=== PATIENT | male | born 1950 | race Caucasian/White ===

== ENCOUNTER 2022-03-23 09:14 | Outpatient (CLI) | payer MEDICARE, SELFPAY | END 2022-03-23 09:15 | disposition home or self-care (01) | LOC: FRMREF 10:31 | PROVIDERS: PCP Family Medicine; Visit Provider Family Medicine | DX: L02.93 Carbuncle, unspecified (principal) | CPT/HCPCS: 87070; 87186 ==

== ENCOUNTER 2022-04-22 07:57 | Outpatient (CLI) | payer MEDICARE, SELFPAY ==
[2022-04-22 14:31] LABS: Chloride* 100 mmol/L (96-114); Potassium* 4.9 mmol/L (3.6-5.1); Sodium* 137 mmol/L (135-149)
[2022-04-22 14:34] LABS: Blood Urea Nitrogen* 22 mg/dL (7-30); Carbon Dioxide* 26 mmol/L (20-32); Cholesterol* 238 mg/dL (90-199); Creatinine* 1.5 mg/dL (0.5-1.5); Estimated Glomerular Filt Rate 50 ml/min; Glucose* 115 mg/dL (60-115); Triglycerides* 74 mg/dL (40-149)
[2022-04-22 14:35] LABS: HDL Cholesterol* 73 mg/dL (>=40); LDL Cholesterol Calculated 150 mg/dL (<100)
[2022-04-22 15:04] LABS: PSA Screen* 1.15 ng/mL (0.10-4.00)
== END 2022-04-22 07:58 | disposition home or self-care (01) ==
PROVIDERS: PCP Family Medicine; Visit Provider Family Medicine
DX: Z00.00 Encounter for general adult medical examination without abnormal findings (principal); G31.84 Mild cognitive impairment of uncertain or unknown etiology; N18.9 Chronic kidney disease, unspecified; Z12.5 Encounter for screening for malignant neoplasm of prostate
CPT/HCPCS: 80048; 80061; 84153; 84443

== ENCOUNTER 2022-06-01 18:34 | Emergency (ER) | payer MEDICARE, SELFPAY ==
[2022-06-01 18:54] VITALS: BP 144/90; PULSE 72; RESP 16; TEMP 36.7; O2SAT 97; BMI 25.0
--- NOTE | 2022-06-01 20:36 | ED.SKABFB ---
HPI - Skin/Abscess/Foreign Bdy General Chief complaint: Skin/Abscess/Foreign Body Stated complaint: Boil Time Seen by Provider: 06/01/22 20:15 History of Present Illness HPI narrative: Pt who was seen earlier today at urgent care presents with an abscess overlying the left mandible. Pt has had other abscesses lanced. Pt has had no fever or chills. Pt has done with with lancing in the past. The swelling has been present for the past 4 days. No airway compromise. No signs of systemic infection. Pain is minimal. Related Data Home Medications Medication Instructions Recorded Confirmed aspirin 81 mg chewable tablet 1 tab PO DAILY 03/23/22 05/30/22 cholecalciferol (vitamin D3) 50 2,000 unit PO DAILY 03/23/22 05/30/22 mcg (2,000 unit) capsule omega 6-bpv-xrg-fish oil 100 1 cap PO .qd 03/23/22 05/30/22 mg-160 mg-1,000 mg capsule (Fish Oil) Previous Rx's Medication Instructions Recorded donepezil 5 mg tablet 5 mg PO QDAY #90 tabs 04/22/22 Allergies Allergy/AdvReac Type Severity Reaction Status Date / Time No Known Allergies Allergy Verified 05/30/22 09:45 Review of Systems Status of ROS: Reports: 10 or more systems reviewed and unremarkable except as noted in History and below [facility] Medical History History of colonic polyps (08/22/09) History of depression (08/22/09) Mild cognitive impairment with memory loss Surgical History History of colonoscopy with polypectomy Status post hernia repair (08/22/09) Family History Sister Alzheimer's disease Father Alzheimer's disease Prostate cancer Brother Colon cancer Leukemia Other High blood pressure Stroke Social History Narrative: does not use illicit drugs former smoker has 2 children rarely consumes alcohol Smoking Status: Never smoker Little interest or pleasure in doing things: not at all Feeling down, depressed, or hopeless: not at all Exam Narrative: Exam Narrative: EXAM GENERAL: Patient appears comfortable and well. Swelling noted of the left mid mandible. Minimal edema noted. EYES: No scleral icterus. ENT: Tympanic membranes and oropharynx normal. THYROID: no thyroid nodules or thyromegaly. LYMPH: No supraclavicular or cervical lymphadenopathy. SKIN: Visible skin seen during exam normal or with benign process only. EXT: No dependent lower extremity pedal edema. HEART: Regular rate and rhythm with no murmurs, rubs, or gallops. LUNGS: Clear to auscultation bilaterally with no crackles or wheezes. ABD: Soft, non tender, non distended. PSYCH: Good eye contact, speech is not pressured. Const: Vital Signs, click to edit/add: Vital Signs - 24 hr 06/01/22 18:54 Temperature 98.0 F Pulse Rate [Right] 72 Respiratory Rate 16 Blood Pressure [Ri ght Upper Arm] 144/90 H Pulse Oximetry 97 Oxygen Delivery Me thod Room Air Course Course Hospital Course: After explaining the risk and benefit, I did create local anesthesia with 1% lidocaine with epinephrine. I then made approximately 1 and 1/2 cm incision draining small amount of pus. The wound was dressed and culture was collected. Vital Signs Vital signs: Initial Vital Signs Temperature 98.0 F 06/01/22 18:54 Temperature Source Temporal Artery Scan 06/01/22 18:54 Pulse Rate 72 06/01/22 18:54 Respiratory Rate 16 06/01/22 18:54 Blood Pressure 144/90 H 06/01/22 18:54 Blood Pressure Mean 108 06/01/22 18:54 Blood Pressure Position Sitting 06/01/22 18:54 Pulse Oximetry 97 06/01/22 18:54 Oxygen Delivery Method 06/01/22 18:54 Vital Signs Temperature 98.0 F 06/01/22 18:54 Pulse Rate 72 06/01/22 18:54 Respiratory Rate 16 06/01/22 18:54 Blood Pressure 144/90 H 06/01/22 18:54 Pulse Oximetry 97 06/01/22 18:54 Oxygen Delivery Method 06/01/22 18:54 Temperature 98.0 F 06/01/22 18:54 Pulse Rate 72 06/01/22 18:54 Respiratory Rate 16 06/01/22 18:54 Blood Pressure 144/90 H 06/01/22 18:54 Pulse Oximetry 97 10/10/22 18:54 Oxygen Delivery Method 06/01/22 18:54 MDM - Skin/Abscess/Foreign Bdy MDM Narrative Medical decision making narrative: Pt with frequent skin abscess presents with a fluctuant lesion on the mid mandible on the left. The lesion was drained and cultured and finally dressed. Pt's tdap was confirmed and he was placed on 7 days of keflex with outpt follow up. Discharge Plan Discharge Clinical Impression: Abscess Patient Disposition: Home, Self-Care Condition: Stable Instructions: Abscess (ED) Additional Instructions: Keflex as directed Daily dressing changes Follow up with your doctor Activity Level: No Restrictions Discharge Diet: Regular Prescriptions: No Action cholecalciferol (vitamin D3) 50 mcg (2,000 unit) capsule 2,000 unit PO DAILY aspirin 81 mg tablet,chewable 1 tab PO DAILY Fish Oil 100-160-1,000 mg capsule 1 cap PO .qd donepezil 5 mg tablet 5 mg PO QDAY Qty: 90 4RF Follow Up/Referrals: Farhat Randall MD [Primary Care Provider] - Stand Alone Forms: [facility] Info Instructions
[2022-06-01] MEDS: LIDOCAINE 2%-EPI 1:200,000 20 ML INFILTRATI (20:53)
--- NOTE | 2022-06-01 20:54 | ED.NURSE ---
wound culture swab obtained from open chin abscess and sent to lab.
== END 2022-06-01 21:10 | disposition home or self-care (01) ==
LOC: ED 20:47
PROVIDERS: Emergency Provider Internal Medicine; PCP Family Medicine
DX: L02.818 Cutaneous abscess of other sites (principal)
CPT/HCPCS: 10060; 87070; 87186; 99283

== ENCOUNTER 2022-06-10 07:28 | Day surgery (SDC) | payer MEDICARE, SELFPAY ==
[2022-06-10] MEDS: TETRACAINE 0.5% OPHTH 1 DROP EYE-LEFT ×2 (07:45→07:55)
[2022-06-10] MEDS: KETOROLAC OPHTH 0.5% 1 DROP EYE-LEFT ×3 (07:52→08:12)
[2022-06-10 08:00] VITALS: BMI 25.5
[2022-06-10 08:03] VITALS: BP 119/81; PULSE 55; RESP 16; TEMP 36.6; O2SAT 99
--- NOTE | 2022-06-10 08:04 | SUR.PREOP ---
The eye drops brought by the patient (Ketorolac and Prednisolone) are examined and I have determined they are labeled by the patient's pharmacy for this patient as prescribed by the surgeon. The bottles are intact, recently obtained and appear to be correct.
[2022-06-10] MEDS: SODIUM CHLORIDE 0.9 % (FLUSH) 10 ML SYRINGE IVF (08:16)
[2022-06-10] MEDS: TETRACAINE 0.5% OPHTH 2 DROP EYE-LEFT (08:45)
--- NOTE | 2022-06-10 08:50 | W.ANESCHARGE ---
Anesthesia Charges Start Date/Time Anesthesia Start Date: 06/10/22 Anesthesia Start Time: 08:42 Stop Date/Time Anesthesia Stop Date: 06/10/22 Anesthesia Stop Time: 09:27 Summary Emergency: No
[2022-06-10] MEDS: BALANCED SALT IRRIG SOLN 15 ML EYE-LEFT (08:51)
[2022-06-10 09:25] VITALS: BP 137/90; PULSE 52; RESP 16
--- NOTE | 2022-06-10 10:06 | W.ANESCHARGE ---
Anesthesia Charges Start Date/Time Anesthesia Start Date: 06/10/22 Anesthesia Start Time: 08:42 Stop Date/Time Anesthesia Stop Date: 06/10/22 Anesthesia Stop Time: 09:27 Summary Emergency: No
--- NOTE | 2022-06-10 10:20 | W.PM.OPTPROC ---
Procedure Note Date of procedure: 06/10/22 Will [facility] bill your pro fee for this procedure?: Yes Procedure Description: SURGEON: Sybil Prather MD PREOPERATIVE DIAGNOSIS: 1. Nuclear sclerotic cataract, left eye. 2. Miosis, left eye. POSTOPERATIVE DIAGNOSIS: 1. Nuclear sclerotic cataract, left eye. 2. Miosis, left eye. NAME OF OPERATION: Phacoemulsification of cataract with posterior chamber intraocular lens implantation in the left eye with pupilloplasty. ANESTHESIA: Topical. ESTIMATED BLOOD LOSS: Less than 2 cc. COMPLICATIONS: None. PATHOLOGY SPECIMEN: None. INDICATIONS: See consult note for details. The risks, benefits and alternatives of the procedure were explained to the patient, who elected to proceed and signed informed consent to do so. PROCEDURE: The patient was brought to the pre-holding area where the left eye was identified as the operative eye. I placed my initials above this eye. The patient received eye drops consisting of 0.5% tetracaine, 1% tropicamide, 10% phenylephrine, and 0.5% ketorolac. The patient was then brought to the operating room where the left eye was again identified as the operative eye. The eye was prepped with Betadine and draped in the usual sterile ophthalmic fashion. A #15 super-sharp blade was used to create a paracentesis site. 1% non-preserved intracameral lidocaine was injected into the anterior chamber. Endocoat was injected into the anterior chamber. A 2.4 mm keratome was used to create a three-plane self-sealing incision 1 mm anterior to the temporal limbus. A #15 super-sharp blade was used to create four additional paracentesis sites. Four Grieshaber iris hooks were placed in order to stretch the iris. A cystotome was used to create an anterior capsular leaflet. The Utrata forceps were used to extend this to form a continuous curvilinear capsulorrhexis. Hydrodissection was performed. The cataract was removed with phacoemulsification using the [id number] technique. The irrigation and aspiration tip was used to remove the remaining cortex. Healon was injected into the capsular bag. An MADELINE ZCB00 intraocular lens of 23.0 diopters was injected into the capsular bag. The four Grieshaber iris hooks were removed. The irrigation and aspiration tip was used to remove the remaining viscoelastic. Miostat was injected into the anterior chamber. Balanced salt solution on a cannula was used to hydrate the wound, and the wound was found to be watertight. The pupil was noted to be round. DISPOSITION: The patient was taken to the recovery room and discharged to home in stable condition. The patient was instructed to call me or go to the emergency department with any sudden change, including dramatic loss of vision, severe pain in the eye or eyebrow region, nausea, or vomiting. The patient will follow up in the clinic tomorrow morning. Surgeon: Sybil Prather MD
== END 2022-06-10 10:00 | disposition home or self-care (01) ==
PROVIDERS: PCP Family Medicine; Visit Provider Ophthalmology
PROC: (CPT 66982; principal; 2022-06-10 07:30)
DX: H25.12 Age-related nuclear cataract, left eye (principal); H57.03 Miosis
CPT/HCPCS: 66982; 00142; A9270; J2250; J3010; V2632

== ENCOUNTER 2022-06-20 09:46 | Emergency (ER) | payer MEDICARE, SELFPAY ==
[2022-06-20 10:47] VITALS: BP 135/76; PULSE 55; RESP 18; TEMP 36.9; O2SAT 98; BMI 24.9
--- NOTE | 2022-06-20 10:59 | ED_ITS ---
HPI - General Adult General Time Seen by Provider: 11:00 Date Seen: 06/20/22 Chief complaint: Laceration/Wound Stated complaint: Fall, head laceration Time Seen by Provider: 06/20/22 10:58 Source: patient and RN notes reviewed Mode of arrival: ambulatory Limitations: no limitations History of Present Illness HPI narrative: Patient is a 71-year-old male sent from urgent care for evaluation of a facial laceration sustained at about 4:00 a.m. this morning. Patient gets severe muscle cramps and had 1 in his calf last night. He gets plantar flexion and it is extremely painful, has to get out of bed. When he was getting out of bed he actually be fell. He was having extremely painful calf muscle cramp at the time. Takes a baby aspirin daily. Did take some ibuprofen earlier for some discomfort. They had went to [facility], had waited for toe open, was told that he needed evaluation here in the ER. He believes his tetanus is within about 8 years. He initially had some right sided posterior shoulder pain. It was not his neck. He points to the right posterior shoulder. It is not really bothering him now. He was maybe a little sweaty at the time. Denies any loss of consciousness, there was no cardiac symptomatology. His feels like he is fine now. He is able to breathe through his nose. No significant headache, no visual changes. Patient fell face 1st, hit his head. Does feel like his right front upper tooth is a little loose. Otherwise he does not have any malocclusion anywhere in his mouth, no pain. Does not feel that there is any cardio respiratory cause for his fall. complaint: Facial laceration Onset (ago): hour(s) Location: face Related Data Home Medications Medication Instructions Recorded Confirmed aspirin 81 mg chewable tablet 1 tab PO DAILY 03/23/22 06/10/22 cholecalciferol (vitamin D3) 50 2,000 unit PO DAILY 03/23/22 06/10/22 mcg (2,000 unit) capsule omega 3-adg-cjb-fish oil 100 1 cap PO .qd 03/23/22 06/10/22 mg-160 mg-1,000 mg capsule (Fish Oil) Previous Rx's Medication Instructions Recorded donepezil 5 mg tablet 5 mg PO QDAY #90 tabs 04/22/22 Allergies Allergy/AdvReac Type Severity Reaction Status Date / Time No Known Allergies Allergy Verified 06/10/22 07:55 Review of Systems Status of ROS: Reports: 6 or more systems reviewed and unremarkable except as noted in History and below [facility] Medical History History of colonic polyps (08/22/09) History of depression (08/22/09) Mild cognitive impairment with memory loss Surgical History History of colonoscopy with polypectomy Status post hernia repair (08/22/09) Family History Sister Alzheimer's disease Father Alzheimer's disease Prostate cancer Brother Colon cancer Leukemia Other High blood pressure Stroke Social History Narrative: does not use illicit drugs former smoker has 2 children rarely consumes alcohol Smoking Status: Former smoker What tobacco products do you use: cigarettes Smoking quit date/years: <= 15 years ago Do you use any of these nicotine containing products: None Second hand tobacco smoke exposure: No How often do you have a drink containing alcohol: monthly or less How often do you have six or more drinks on one occasion: Never AUDIT-C Alcohol total score: 1 Non-prescribed substance use: denies use Caffeine: No Little interest or pleasure in doing things: not at all Feeling down, depressed, or hopeless: not at all Exam Const: Vital Signs, click to edit/add: Vital Signs - 24 hr 06/20/22 10:47 Temperature 98.4 F Pulse Rate [Right Pulse Oximeter] 55 L Respiratory Rate 18 Blood Pressure [Ri ght Upper Arm] 135/76 Pulse Oximetry 98 Oxygen Delivery Me thod Room Air Patient has an irregular slightly stellate about 2.5 cm laceration above his right eyebrow. It is gaping. Not actively bleeding any longer. It is into the subcutaneous tissue but not deeper. Documenting provider has reviewed patient's vital signs: yes Common normals: no apparent distress, average body habitus, oriented x3, no limitations, healthy appearing, alert and well nourished HENMT: Common normals: external ears normal, TM's normal bilaterally, nasal mucous membranes and turbinates normal, moist oral mucous membranes, oropharynx normal and gingiva normal Nose: nasal mucous membranes and turbinates normal External ear: external ears normal Tympanic membrane: TM's normal bilaterally Mouth: oral and palatal mucosa normal, lip normal and tongue normal Throat: posterior oropharynx normal Other: Patient has the noted laceration above his right eyebrow. There seems to be a little ecchymosis over the bridge of his nose but he really has no pain, denies any difficulty breathing through nares. Dentition appear intact, no pain along the maxilla. Little superficial abrasion within the philtrum of the upper lip. Eye: Common normals: PERRL, EOMs intact bilaterally, conjunctivae normal and n o scleral icterus Conjunctiva: conjunctiva(e) normal Pupil: PERRL Neck & C-Spine: Common normals: full ROM (No central neck pain, no paraspinous tenderness.), no lymphadenopathy, supple, no JVD and thyroid normal Thyroid: thyroid normal Cardio: Common normals: no JVD Neuro: Common normals: oriented x3 Sensorium/orientation: alert Course Course Hospital Course: Patient needs this laceration repaired. Did discuss with he and his possibility of further imaging. We did discuss facial imaging, neck imaging, head imaging. At this time they do not feel any of this is necessary. They feel he really is at his baseline. They understand that if there is anything that changes, he has further symptoms once he leaves, would recommend re- evaluation. We will proceed with repairing his laceration. Patient had his tetanus in 2013, coming close to the end of the 10 year period, did opt to have his tetanus updated today which I think is appropriate. Tdap ordered. Vital Signs Vital signs: Initial Vital Signs Temperature 98.4 F 06/20/22 10:47 Temperature Source Temporal Artery Scan 06/20/22 10:47 Pulse Rate 55 L 06/20/22 10:47 Respiratory Rate 18 06/20/22 10:47 Blood Pressure 135/76 06/20/22 10:47 Blood Pressure Mean 95 06/20/22 10:47 Blood Pressure Position Sitting 06/20/22 10:47 Pulse Oximetry 98 06/20/22 10:47 Oxygen Delivery Method 06/20/22 10:47 Vital Signs Temperature 98.4 F 06/20/22 10:47 Pulse Rate 55 L 06/20/22 10:47 Respiratory Rate 18 06/20/22 10:47 Blood Pressure 135/76 06/20/22 10:47 Pulse Oximetry 98 06/20/22 10:47 Oxygen Delivery Method 06/20/22 10:47 Temperature 98.4 F 06/20/22 10:47 Pulse Rate 55 L 06/20/22 10:47 Respiratory Rate 18 06/20/22 10:47 Blood Pressure 135/76 06/20/22 10:47 Pulse Oximetry 98 06/20/22 10:47 Oxygen Delivery Method 06/20/22 10:47 Critical Care Time Critical Care Time Critical Care Time: No Discharge Plan Discharge Clinical Impression: Laceration of face, Fall Condition: Stable Instructions: Care For Your Stitches (ED), Laceration (ED) Additional Instructions: May shower as usual, schedule a clinic followup for this coming Wednesday to assess the wound for suture removal. Can use bandages if needed. Do recommend using Vaseline or bacitracin on this wound 4 times a day to help the wound from crusting. There is concern for infection, please seek re-evaluation. If you have any further issues from this fall, developed concerning symptoms outside of the laceration, please seek re-evaluation. Activity Level: Activity as Tolerated Prescriptions: No Action cholecalciferol (vitamin D3) 50 mcg (2,000 unit) capsule 2,000 unit PO DAILY aspirin 81 mg tablet,chewable 1 tab PO DAILY Fish Oil 100-160-1,000 mg capsule 1 cap PO .qd donepezil 5 mg tablet 5 mg PO QDAY Qty: 90 4RF Follow Up/Referrals: Maricarmen Valle DO [Primary Care Provider] - Stand Alone Forms: [facility] Info Instructions Procedures Laceration Laceration 1: Pre procedure diagnosis: Facial laceration Post procedure diagnosis: Same Site marking: not applicable Verification/time out: correct patient, correct site and correct procedure Name of person performing procedure: Miracle Garcia Site: face Side (If applicable): right Size (cm): 2.5 Description: stellate, irregular and clean Depth: simple, single layer Local Anesthetic: lidocaine 1% and with epi Amount of anesthesia used (mL): 5 Pre-repair: wound explored, irrigated extensively and deep structures intact Skin layer closed with: other (Ethilon) Size (cm): 4-0 Number of sutures: 11 Technique: simple, interrupted Estimated blood loss (if any): none Conclusion: patient tolerated procedure
--- OUTSIDE RECORDS SUMMARY | 2022-06-20 11:39 | XMS_ITS | Encounter Summary ---
:1950 Author Organization [facility] Address [address] [place] [address] Care Team Providers Name Role Phone Sarabjit Tenorio MD Primary Care Provider [phone] Sarabjit Tenorio MD Unavailable Encounter Details Date Type Department Care Team Description 02/26/2020 Travel Social History Tobacco Use Types Packs/Day Years Used Date Smoking Tobacco: Former Cigarettes 1 50 08/1966 - 08/30/2017 Smokeless Tobacco: Never Comments: hand rolled Alcohol Use Standard Drinks/Week Comments Yes 0 (1 standard drink = 0.6 oz pure alcoho l) a few drinks per month Sex Assigned at Date Recorded Not on file COVID-19 Exposure Response Date Recorded In the last month, have you been in contact with No / Unsure 02/26/2020 7:03 PM CDT someone who was confirmed or suspected to have Coronavirus / COVID-19? documented as of this encounter Plan of Treatment Not on filedocumented as of this encounter Visit Diagnoses Not on filedocumented in this encounter Care Teams Bi Data Architect Relationship Specialty Start Date End Date Saarbjit Tenorio MD PCP - General Family Practice 04/18/14 Sarabjit Tenorio MD Assigned PCP 03/22/14 05/17/21 [id number] [place] [address] documented as of this encounter
--- OUTSIDE RECORDS SUMMARY | 2022-06-20 11:39 | XMS_ITS | Clinical Summary ---
:1950 Author Organization [facility] Address [address] [place] [address] Care Team Providers Name Role Phone Sarabjit Tenorio MD Primary Care Provider [phone] Allergies No known active allergies Medications No known medications Active Problems Problem Noted Date Vasomotor rhinitis 02/26/2020 CRF (chronic renal failure), stage 2 (mild) 07/19/2017 CARDIOVASCULAR SCREENING; LDL GOAL LESS THAN 130 04/18 Resolved Problems Problem Noted Date Resolved Date Tobacco use disorder 04/18/2014 04/13/2018 Immunizations Name Administration Dates Next Due FLU 6-35 months 07/24/2009 Influenza (High Dose) 3 valent 06/07/2018 vaccine Influenza (IIV3) PF 06/07/2013, 05/12/2012, 05/28/2011, 05/29/2010, 07/09/2008 Influenza Vaccine IM > 6 months 06/18/2015 Valent IIV4 (Alfuria,Fluzone) Influenza Vaccine, 6+MO IM 05/30/2017 (QUADRIVALENT W/PRESERVATIVES) Pneumococcal 23 valent 05/16/2018 TDAP Vaccine (Adacel) 04/18/2014 Family History Medical History Relation Comments Leukemia Brother Alzheimer Disease Father Prostate Cancer Father metastatic Cerebrovascular Disease Mother Dementia Mother Hypertension Mother Alzheimer Disease Sister Relation Status Comments Brother Alive Father Maternal Grandfather Maternal Grandmother Mother Paternal Grandfather Paternal Grandmother Sister Social History Tobacco Use Types Packs/Day Years Used Date Smoking Tobacco: Former Cigarettes 1 50 09/0 08/1966 - 08/30/2017 Smokeless Tobacco: Never Tobacco Cessation: Ready to Quit: Yes Comments: hand rolled Alcohol Use Standard Drinks/Week Comments Yes 0 (1 standard drink = 0.6 oz pure alcoho l) a few drinks per month Sex Assigned at Date Recorded Not on file Last Filed Vital Signs Vital Sign Reading Time Taken Comments Blood Pressure 142/95 02/26/2020 7:13 PM CDT Pulse 86 02/26/2020 7:13 PM CDT Temperature 36.4 ??C (97.6 ??F) 02/26/2020 7:13 PM CDT Respiratory Rate 16 02/26/2020 7:13 PM CDT Oxygen Saturation 98% 02/26/2020 7:13 PM CDT Inhaled Oxygen Concentration - - Weight 88.5 kg (195 lb) 02/26/2020 7:13 PM CDT per pt. Height 198.8 cm (6' 6.25) 04/13/2018 7:30 AM CDT Body Mass Index 22.39 04/13/2018 7:30 AM CDT Plan of Treatment Health Maintenance Due Date Last Done Comments ADVANCE CARE PLANNING 1950 ANNUAL REVIEW OF HM ORDERS 1950 CT COLONOGRAPHY 1950 FIT-DNA (Cologuard) 1950 FIT 1950 FLEX SIG 1950 HEPATITIS B IMMUNIZATION (1 1950 of 3 - 3-dose series) MICROALBUMIN 1950 COVID-19 Vaccine (#1) 02/17/1951 URINALYSIS 1951 LUNG CANCER SCREENING 2002 ZOSTER IMMUNIZATION (1 of 2002 2) AORTIC ANEURYSM SCREENING 2017 (SYSTEM ASSIGNED) LIPID 07/14/2018 07/14/2017, 04/18/2014 MEDICARE ANNUAL WELLNESS 07/14/2018 07/14/2017, 04/18/2014 VISIT BMP 04/13/2019 04/13/2018, 07/14/2017, 04/18/2014 FALL RISK ASSESSMENT 05/16/2019 05/16/2018 Pneumococcal Vaccine: 65+ 05/16/2019 05/16/2018 Years (2 - PCV) PHQ-2 (once per calendar 08/23/2021 07/28/2017, 07/14/2017, year) 01/06/2016 INFLUENZA VACCINE (#1) 2022 06/07/2018, 05/30/2017, 05/30/2017, Additional history exists DTAP/TDAP/TD IMMUNIZATION 04/18/2024 04/18/2014 (2 - Td or Tdap) COLONOSCOPY 06/08/2024 06/08/2014, 06/08/2014 COLORECTAL CANCER SCREENING 06/08/2024 HEPATITIS C SCREENING Completed 07/14/2017 IPV IMMUNIZATION Aged Out No longer eligi ble based on patient 's age to complete this topic MENINGITIS IMMUNIZATION Aged Out No longe r eligible based on patient 's age to complete this topic Insurance Payer Benefit Plan / Subscriber ID Effective Dates Phone Addre ss Type Group BCBS BCBS MEDICARE [id number] 2020-Sonny [phone] [address] [address] Medicare [place]VANTAGE [place] 0 [place] [address] Care Teams Mold Shifter Relationship Specialty Start Date End Date Sarabjit Tenorio MD PCP - General Family Practice 04/18/14
--- OUTSIDE RECORDS SUMMARY | 2022-06-20 11:40 | XMS_ITS | Encounter Summary ---
:1950 Author Organization [place] Address [facility] [place] [address] Care Team Providers Name Role Phone Sarabjit Peterson MD Primary Care Provider [phone] Sarabjit Peterson MD Unavailable Sarabjit Peterson MD Unavailable Reason for Visit Auth/Cert - Closed Specialty Diagnoses / Procedures Referred By Contact Refer red To Contact Gastroenterology Diagnoses SCREENING Endoscopy Procedures COLONOSCOPY [address] [place] [address] Phone: Fax: Referral ID Status Reason Start Date Expiration Date Visits Requ ested Visits Authorized [id number] Closed 1 1 Encounter Details Date Type Department Care Team Description 06/08/2014 Surgery [facility] Endoscopy Jose King MD COLONOSCOPY [facility] [address] [facility] [address] [place] [address] [place] [address] (Wo rk) Surgery Details Date/Time Status Location OR Service Patient Class Case Case Trauma Class Type Case? 06/08/14 Posted GI [facility] Gastroenterology Outpatient 7:30 AM Panel 1 Procedure LRB Anes Op Region Wound Class Commen ts COLONOSCOPY N/A Conscious Sedation Rectum II-Clean Contami nated COLONOSCOPY Surgeon Surgeon Role Service Panel Jose Lopez MD Primary Gastroenterology [address] PETERSON documented in this encounter Social History Tobacco Use Types Packs/Day Years Used Date Smoking Tobacco: Every Day Cigarettes 0.8 45 Smokeless Tobacco: Never Comments: hand rolled Alcohol Use Standard Drinks/Week Comments Yes 0 (1 standard drink = 0.6 oz pure alcoho l) Sex Assigned at Date Recorded Not on file documented as of this encounter Last Filed Vital Signs Vital Sign Reading Time Taken Comments Blood Pressure 116/76 06/08/2014 8:00 AM CDT Pulse - - Temperature - - Respiratory Rate 16 06/08/2014 8:00 AM CDT Oxygen Saturation 97% 06/08/2014 8:00 AM CDT Inhaled Oxygen Concentration - - Weight 83.9 kg (185 lb) 06/08/2014 7:28 AM CDT Height 190.5 cm (6' 3) 06/08/2014 7:28 AM CDT Body Mass Index 23.12 06/08/2014 7:28 AM CDT documented in this encounter Medications at Time of Discharge Medication Sig Dispensed Refills Start Date End Date Aspirin 81 MG TBDP 0 2017 documented as of this encounter H&P Notes Jose Lopez MD - 06/08/2014 7:22 AM CDT Pre-Endoscopy History and Physical En Zamora Date of : 1950 Age: [age] year old Date of Procedure: 06/08/2014 Primary care provider: Sarabjit Peterson Type of Endoscopy: Colonoscopy with possible biopsy, possible polypectomy Reason for Procedure: screen Type of Anesthesia Anticipated: Conscious Sedation HPI: En is a 63 year old male who will be undergoing the above procedure. A history and physical has been performed. The patient's medications and allergies have been reviewed. The risks and benefits of the procedure and the sedation options and risks were discussed with thepatient. All questions were answered and informed consent was obtained. He denies a personal or family history of anesthesia complications or bleeding disorders. Patient Active Problem List Diagnosis ??? Tobacco use disorder ??? CARDIOVASCULAR SCREENING; LDL GOAL LESS THAN 130 Past Medical History Diagnosis Date ??? H/O colonoscopy with polypectomy 2000 pre-cancer polyps Past Surgical History Procedure Laterality Date ??? Hernia repair, inguinal rt/lt History Substance Use Topics ??? Smoking status: Current Every Day Smoker -- 0.75 packs/day for 45 years Types: Cigarettes ??? Smokeless tobacco: Never Used Comment: hand rolled ??? Alcohol Use: Yes Family History Problem Relation Age of Onset ??? Hypertension Mother ??? Dementia Mother ??? Stroke Mother ??? Prostatic CA Father ??? Alzheimers Father ??? Alzheimers Sister Prior to Admission medications Medication Sig Start Date End Date Taking? Authorizing Provider Aspirin 81 MG TBDP Reported, Patient No Known Allergies REVIEW OF SYSTEMS: 5 point ROS negative except as noted above in HPI, including Gen., Resp., CV, GI & system review. PHYSICAL EXAM: There were no vitals taken for this visit. Estimated body mass index is 23.12 kg/(m^2) as calculatedfrom the following: Height as of 04/18/14: 1.905 m (6' 3). Weight as of 04/18/14: 83.915 kg (185 lb). GENERAL APPEARANCE: alert, and oriented MENTAL STATUS: alert AIRWAY EXAM: Mallampatti Class II (visualization of the soft palate, fauces, and uvula) RESP: lungs clear to auscultation - no rales, rhonchi or wheezes CV: regular rates and rhythm DIAGNOSTICS: Not indicated IMPRESSION ASA Class 2 - Mild systemic disease PLAN: Plan for Colonoscopy with possible biopsy, possible polypectomy. We discussed the risks, benefits and alternatives and the patient wished to proceed. The above has been forwarded to the consulting provider. Signed Electronically by: Jose Lopez MD June 08, 2014 documented in this encounter Plan of Treatment Not on filedocumented as of this encounter Procedures Procedure Name Priority Date/Time Associated Diagnosis Comme nts COLONOSCOPY Routine 06/08/2014 7:22 AM Results f or this CDT procedure are i n the results section . COLONOSCOPY 06/08/2014 7:19 AM screen CDT Special Needs DR. PETERSON documented in this encounter Results COLONOSCOPY (06/08/2014 7:22 AM CDT) [facility] Method Time Signature COLONOSCOPY [facility] RAD IOLOGY RESULTS Patient Name: En Zamora ?Procedure Date: 06/08/2014 7:22 AM ? Accou nt Number: [id number] Date of : 1950 ? Admit Type: Outp atient Age: 63 ? Gender: Male Attending MD: Jose Lopez MD ?Instrument Name: [id number] [id number] Procedure: ?Colonoscopy Indications: ?[place] colon cancer surveillance: Personal ?history of colonic po lyps Providers: ?Jose Lopez MD Referring MD: ? Sarabjit Peterson MD Medicines: ?Midazolam 2 mg IV, Fentanyl 100 micrograms IV Complications: ?No immediate complications. Procedure: ?Pre-Anesthesia Assessment: ?- Prior to the procedure, a History and Physical ?was performed, and patient medications and ?allergies were reviewed. The patient is competent. ?The risks and benefits of the procedure and the ?sedation options and risks were discussed with the ?patient. All questions were answered and informed ?consent was obtained. Patient identification and ?proposed procedure were verified by the physician ?in the procedure room. Mental Status Examination: ?alert and oriented. Airway Examination: normal ?oropharyngeal airway and neck mobility. Respiratory ?Examination: clear to auscultation. CV Examination: ?normal. Prophylactic Antibiotics: The patient does ?not require prophylactic antibiotics. Prior ?Anticoagulants: The patient has taken aspirin, last ?dose was 5 days prior to procedure. ASA Grade ?Assessment: II - A patient with mild systemic ?disease. After reviewing the risks and benefits, ?the patient was deemed in satisfactory condition to ?undergo the procedure. The anesthesia plan was to ?use moderate sedation / analgesia (conscious ?sedation). Immediately prior to administration of ?medications, the patient was re-assessed for ?adequacy to receive sedatives. The heart rate, ?respiratory rate, oxygen saturations, blood ?pressure, adequacy of pulmonary ventilation, and ?response to care were monitored throughout the ?procedure. The physical status of the patient was ?re-assessed after the procedure. ?After obtaining informed consent, the colonoscope ?was passed under direct vision. Throughout the ?procedure, the patient's blood pressure, pulse, and ?oxygen saturations were monitored continuously. The ?[id number] was introduced through the anus ?and advanced to the cecum, identified by ?appendiceal orifice and ileocecal valve. The ?colonoscopy was performed without difficulty. The ?patient tolerated the procedure well. The quality ?of the bowel preparat ion was good. ? Findings: ? The perianal and digital rectal examinations were nor mal. ? The entire examined colon appeared normal on direct and retroflexion ? views. ? Impression: ? - The entire examined colon is normal on direct and ?retroflexion views. Recommendation: ? - Repeat colonoscopy in 5 years for surveillance. ? Procedure Code(s): ? --- Professional --- ? G0105, Colorectal cancer screening; colonoscopy on individual at high ? risk Diagnosis Code(s): ? --- Professional --- ? V12.72, Personal history of colonic polyps CPT copyright 2013 [employer]. All rights reserved. The codes documented in this report are prelimin beverly and upon type proof reproducer review may be revised to meet current compliance requirements. Electronically signed by Jose Lopez MD Jose Lopez MD 06/08/2014 7:48 AM I was physically present for the entire viewing portion of t he exam. Number of Addenda: 0 Note Initiated On: 06/08/2014 7:22 AM MRN: ?[id number] Procedure Date: ? 06/08/2014 7:22:44 AM Scope Withdrawal Time: 0 hours 6 minutes 14 seconds Total Procedure Duration: 0 hours 19 minutes 0 seconds Scope In: 7:23:18 AM Scope Out: 7:42:18 AM Specimen (Source) Anatomical Collection Method Collection Time Re ceived Time Location / / Volume Laterality 06/08/2014 7:22 AM CDT Sarabjit Peterson MD PROCEDURES Performing Organization Address City/State/ZIP Code Phon e Number RADIOLOGY RESULTS documented in this encounter Visit Diagnoses Not on filedocumented in this encounter Administered Medications Inactive Administered Medications - up to 3 most recent administrations Medication Order MAR Action Action Date Dose Rate Site fentaNYL (SUBLIMAZE) injection Given 06/08/2014 7:27 AM CDT 100 mcg PRN, moderate to severe pain, Starting on Wed06/08/14 at 0727, Intra-procedure midazolam (VERSED) injection Given 06/08/2014 7:27 AM CDT 2 mg PRN, anxiety, Starting on Wed06/08/14 at 0727, Intra-procedure sodium chloride (PF) 0.9% PF flush 3 mL Given 06/08/2014 7:27 AM CDT 3 mLs 3 mL, Intravenous, EVERY 1 HOUR PRN, line flush, post meds or blood draw, Starting on Wed06/08/14 at 0713, for peripheral IV line flush post IV meds, Pre-procedure documented in this encounter Active and Recently Administered Medications Times are shown in CDT. PRN Medication Order 06/06/2014 06/07/2014 06/08/2014 fentaNYL (SUBLIMAZE) injection (CANCELED) 07 (Given - Provider: Jose Lopez MD) PRN, Starting Wed06/08/14 at 0727, moderate to severe pain, Int ra-procedure midazolam (VERSED) injection (CANCELED) 0727 (Given - Provider: Jose Lopez MD) PRN, Starting Wed06/08/14 at 0727, anxiety, Intra-procedure sodium chloride (PF) 0.9% PF flush 3 mL (CANCELED) 0727 (Given - Provider: Jose Lopez MD) 3 mL, Intravenous, EVERY 1 HOUR PRN, tia e flush, post meds or blood draw, Starting Wed06/08/14 at 0713, for peripheral IV line flush post IV meds, Pre-procedure documented in this encounter Care Teams Mail Clerks Supervisor Relationship Specialty Start Date End Date Sarabjit Peterson MD PCP - General Family Practice 04/18/14 Sarabjit Peterson MD PCP - Assigned PCP 03/22/14 10/25/18 [id number] [place] [id number] Sarabjit Peterson MD Assigned PCP 03/22/14 05/17/21 [address] [place] [address] documented as of this encounter
--- OUTSIDE RECORDS SUMMARY | 2022-06-20 11:40 | XMS_ITS | Encounter Summary ---
:1950 Author Organization [place] Address [facility] [place] [address] Care Team Providers Name Role Phone Sarabjit Tenorio MD Primary Care Provider [phone] Sarabjit Tenorio MD Unavailable Sarabjit Tenorio MD Unavailable Reason for Visit Diagnostic Imaging XR - Closed Specialty Diagnoses / Procedures Referred By Contact Refer red To Contact Diagnoses Flatulence, eructation, and gas pain Sarabjit Tenorio MD Procedures XR Abdomen 1 [address] [address] [place] [address] Referral ID Status Reason Start Date Expiration Date Visits Requ ested Visits Authorized [id number] Closed 05/16/2018 05/16/2019 1 1 Encounter Details Date Type Department Care Team Description 05/16/2018 Radiant Appointment [facility] Sarabjit Tenorio atulence, Clinic Luis M Berry MD eructation, and gas [address] [address] [facility], [address] [place] [address] [phone] Social History Tobacco Use Types Packs/Day Years Used Date Smoking Tobacco: Former Cigarettes 1 50 09/0 08/1966 - 08/30/2017 Smokeless Tobacco: Never Comments: hand rolled Alcohol Use Standard Drinks/Week Comments Yes 0 (1 standard drink = 0.6 oz pure alcoho l) a few drinks per month Sex Assigned at Date Recorded Not on file documented as of this encounter Plan of Treatment Not on filedocumented as of this encounter Procedures Procedure Name Priority Date/Time Associated Diagnosis Comme nts XR ABDOMEN 1 VIEW Routine 05/16/2018 10:15 AM Flatulence, Res ults for this CDT eructation, and gas procedur e are in pain the results section. documented in this encounter Results XR Abdomen 1 View (05/16/2018 10:15 AM CDT) Anatomical Region Laterality Modality Abdomen/Pelvis Computed Radiography Specimen (Source) Anatomical Location Collection Method / Collectio n Time Received Time / Laterality Volume Impressions 05/16/2018 3:16 PM CDT IMPRESSION: Nonobstructive gas pattern. ANTONIO SAL MD Narrative 05/16/2018 3:16 PM CDT XR ABDOMEN 1 VW 05/16/2018 10:15 AM HISTORY: Gas pain. COMPARISON: None. FINDINGS: No evidence of free intraperit carter air. The bowel gas pattern is nonobstructive. Evidence of p revious hernia repair. Procedure Note Antonio Sal MD - 05/16/2018For matting of this note might be different from the original. XR ABDOMEN 1 VW 05/16/2018 10:15 AM HISTORY: Gas pain. COMPARISON: None. FINDINGS: No evidence of free intraperit carter air. The bowel gas pattern is nonobstructive. Evidence of p revious hernia repair. IMPRESSION: Nonobstructive gas pattern. ANTONIO SAL MD Sarabjit Tenorio MD IMG DIAGNOSTIC IMAGING ORDER CLIF documented in this encounter Visit Diagnoses Diagnosis Flatulence, eructation, and gas pain documented in this encounter Care Teams Back Stayer Relationship Specialty Start Date End Date Sarabjit Tenorio MD PCP - General Family Practice 04/18/14 Sarabjit Tenorio MD PCP - Assigned PCP 03/22/14 10/25/18 [address] [place] [address] Sarabjit Tenorio MD Assigned PCP 03/22/14 05/17/21 [address] [place] [address] documented as of this encounter
--- OUTSIDE RECORDS SUMMARY | 2022-06-20 11:40 | XMS_ITS | Encounter Summary ---
:1950 Author Organization [place] Address [address] [place] [address] Care Team Providers Name Role Phone Sarabjit Tenorio MD Primary Care Provider [phone] Sarabjit Tenorio MD Unavailable Sarabjit Tenorio MD Unavailable Reason for Visit Reason Comments Physical fasting Encounter Details Date Type Department Care Team Description 07/14/2017 Office Visit [facility] Sarabjit Tenorio eneral medical examination at a health care facility (Primary Dx); Clinic Luis M Berry MD Need for hepatitis C screening test; [place] [address] A[address] CARDOZA Tobacco use disorder; Road, [address] [place] [address] [place], [place] [phone] (Wo rk) [address] [phone] Social History Tobacco Use Types Packs/Day Years Used Date Smoking Tobacco: Every Day Cigarettes 1 45 Smokeless Tobacco: Never Comments: hand rolled Alcohol Use Standard Drinks/Week Comments Yes 0 (1 standard drink = 0.6 oz pure alcoho l) a few drinks per month Sex Assigned at Date Recorded Not on file documented as of this encounter Last Filed Vital Signs Vital Sign Reading Time Taken Comments Blood Pressure 106/74 07/14/2017 7:41 AM NET FISHER Pulse 78 07/14/2017 7:41 AM NET FISHER Temperature 36.7 ??C (98.1 ??F) 07/14/2017 7:41 AM NET FISHER Respiratory Rate 16 07/14/2017 7:41 AM NET FISHER Oxygen Saturation - - Inhaled Oxygen Concentration - - Weight 78.3 kg (172 lb 11.2 oz) 07/14/2017 7:41 AM NET FISHER Height 190.5 cm (6' 3) 07/14/2017 7:41 AM NET FISHER Body Mass Index 21.59 07/14/2017 7:41 AM NET FISHER documented in this encounter Patient Instructions Patient InstructionsJune Bloom CMA - 07/14/2017 7:20 AM NET FISHER Preventive Health Recommendations Male Ages 50 - 64 Yearly exam: ?? See your health care provider every year in order to o Review health changes. o Discuss preventive care. o Review your medicines if your doctor has prescribed any. ??? Have a cholesterol test every 5 years, or more frequently if you are at risk for high cholesterol/heart disease. ??? Have a diabetes test (fasting glucose) every three years. If you are at risk for diabetes, you should have this test more often. ??? Have a colonoscopy at age 50, or have a yearly FIT test (stool test). These exams will check forcolon cancer. ??? Talk with your health care provider about whether or not a prostate cancer screening test (PSA) is right for you. ??? You should be tested each year for STDs (sexually transmitted diseases), if you???re at risk. Shots: Get a flu shot each year. Get a tetanus shot every 10 years. Nutrition: ??? Eat at least 5 servings of fruits and vegetables daily. ??? Eat whole-grain bread, whole-wheat pasta and brown rice instead of white grains and rice. ??? Talk to your provider about Calcium and Vitamin D. Lifestyle ??? Exercise for at least 150 minutes a week (30 minutes a day, 5 days a week). This will help you control your weight and prevent disease. ??? Limit alcohol to one drink per day. ??? No smoking. ??? Wear sunscreen to prevent skin cancer. ??? See your dentist every six months for an exam and cleaning. ??? See your eye doctor every 1 to 2 years. FISHER documented in this encounter Progress Notes Sarabjit Tenorio MD - 07/14/2017 7:20 AM CST SUBJECTIVE: CC: En Zamora is an 66 year old male who presents for preventative health visit. Healthy Habits: Answers for HPI/ROS submitted by the patient on 07/14/2017 Annual Exam: Getting at least 3 servings of Calcium per day:: Yes Bi-annual eye exam:: Yes Dental care twice a year:: NO Sleep apnea or symptoms of sleep apnea:: Daytime drowsiness Diet:: Regular (no restrictions) Frequency of exercise:: None Taking medications regularly:: Yes Medication side effects:: Not applicable Additional concerns today:: YES PHQ-2 Score: 0 Notes that he had a slighlty abnormal kidney test at last check up three years ago, never followed up. Still smoking - would like to quit smoking. Has tried previously, but many years ago. Was able to quit for 7 weeks using hypnosis. Interested in using Chantix. is still smoking, but would also like to quit. Due have cataract surgery next month. Up several times a night to urinate. Also has some hesitancy, weak stream. Father had metastatic prostate cancer, thinks he was around 75 when diagnosed. Today's PHQ-2 Score: PHQ-2 (??1999 Pfizer) 07/14/2017 01/06/2016 Q1: Little interest or pleasure in doing things 0 0 Q2: Feeling down, depressed or hopeless 0 0 PHQ-2 Score 0 0 Q1: Little interest or pleasure in doing things Not at all - Q2: Feeling down, depressed or hopeless Not at all - PHQ-2 Score 0 - Abuse: Current or Past(Physical, Sexual or Emotional)- No Do you feel safe in your environment - Yes Social History Substance Use Topics ??? Smoking status: Current Every Day Smoker Packs/day: 1.00 Years: 45.00 Types: Cigarettes ??? Smokeless tobacco: Never Used Comment: hand rolled ??? Alcohol use 0.0 oz/week 0 Standard drinks or equivalent per week Comment: a few drinks per month The patient does not drink >3 drinks per day nor >7 drinks per week. Last PSA: No results found for: PSA Reviewed orders with patient. Reviewed health maintenance and updated orders accordingly - Yes Reviewed and updated as needed this visit by clinical staff Tobacco Allergies Meds Med Hx Surg Hx Fam Hx Soc Hx Reviewed and updated as needed this visit by Provider ROS: C: NEGATIVE for fever, chills, change in weight I: NEGATIVE for worrisome rashes, moles or lesions E: NEGATIVE for vision changes or irritation ENT: NEGATIVE for ear, mouth and throat problems R: NEGATIVE for significant cough or SOB CV: NEGATIVE for chest pain, palpitations or peripheral edema GI: NEGATIVE for nausea, abdominal pain, heartburn, or change in bowel habits male: negative for dysuria, hematuria, decreased urinary stream, erectile dysfunction, urethral discharge M: NEGATIVE for significant arthralgias or myalgia N: NEGATIVE for weakness, dizziness or paresthesias P: NEGATIVE for changes in mood or affect OBJECTIVE: BP 106/74 Pulse 78 Temp 98.1 ??F (36.7 ??C) (Oral) Resp 16 Ht 6' 3 (1.905 m) Wt 172 lb 11.2 oz (78.3 kg) BMI 21.59 kg/m2 EXAM: GENERAL: healthy, alert and no distress EYES: Eyes grossly normal to inspection, PERRL and conjunctivae and sclerae normal HENT: ear canals and TM's normal, nose and mouth without ulcers or lesions NECK: no adenopathy, no asymmetry, masses, or scars and thyroid normal to palpation RESP: lungs clear to auscultation - no rales, rhonchi or wheezes CV: regular rate and rhythm, normal S1 S2, no S3 or S4, no murmur, click or rub, no peripheral edemaand peripheral pulses strong ABDOMEN: soft, nontender, no hepatosplenomegaly, no masses and bowel sounds normal MS: no gross musculoskeletal defects noted, no edema SKIN: no suspicious lesions or rashes NEURO: Normal strength and tone, mentation intact and speech normal PSYCH: mentation appears normal, affect normal/bright ASSESSMENT/PLAN: 1. Need for hepatitis C screening test - Hepatitis C Screen Reflex to HCV RNA Quant and Genotype 2. Routine general medical examination at a health care facility Is fasting - Lipid panel reflex to direct LDL Fasting - Basic metabolic panel - PSA, screen 3. Tobacco use disorder - varenicline (CHANTIX STARTING MONTH ) 0.5 MG X 11 & 1 MG X 42 tablet; Take 0.5 mg tab dailyfor 3 days, then 0.5 mg tab twice daily for 4 days, then 1 mg twice daily. Dispense: 53 tablet; Refill: 0 - varenicline (CHANTIX) 1 MG tablet; Take 1 tablet (1 mg) by mouth 2 times daily Dispense: 56 tablet; Refill: 2 4. Nocturia Will check PSA, trial of flomax - tamsulosin (FLOMAX) 0.4 MG capsule; Take 1 capsule (0.4 mg) by mouth daily Dispense: 30 capsule; Refill: 1 COUNSELING: Reviewed preventive health counseling, as reflected in patient instructions Regular exercise Vision screening reports that he has been smoking Cigarettes. He has a 45.00 pack-year smoking history. He has neverused smokeless tobacco. Tobacco Cessation Action Plan: Pharmacotherapies : Chantix Estimated body mass index is 21.59 kg/(m^2) as calculated from the following: Height as of this encounter: 6' 3 (1.905 m). Weight as of this encounter: 172 lb 11.2 oz (78.3 kg). Counseling Resources: ATP IV Guidelines Pooled Cohorts Equation Calculator FRAX Risk Assessment ICSI Preventive Guidelines Dietary Guidelines for Americans, 2009 [employer]'s MyPlate ASA Prophylaxis Lung CA Screening Sarabjit Tenorio MD [facility] FISHER documented in this encounter Nursing Notes June Bloom CMA - 07/14/2017 7:20 AM CST Chief Complaint Patient presents with ??? Physical fasting Initial BP 106/74 Pulse 78 Temp 98.1 ??F (36.7 ??C) (Oral) Resp 16 Ht 6' 3 (1.905 m) Wt 172 lb 11.2 oz (78.3 kg) BMI 21.59 kg/m2 Estimated body mass index is 21.59 kg/(m^2) as calculated from the following: Height as of this encounter: 6' 3 (1.905 m). Weight as of this encounter: 172 lb 11.2 oz (78.3 kg). Medication Reconciliation: complete June Bloom CMA (AAMA) FISHER documented in this encounter Plan of Treatment Not on filedocumented as of this encounter Procedures Procedure Name Priority Date/Time Associated Diagnosis Comme nts HEPATITIS C SCREEN Routine 07/14/2017 8:11 AM Need for hepatit is C Results for this REFLEX TO HCV RNA NET FISHER screening test procedur e are in QUANT AND GENOTYPE the resul ts section. PROSTATE SPECIFIC Routine 07/14/2017 8:11 AM Routine general R esults for this ANTIGEN SCREEN NET FISHER medical examination proced ure are in at a health care the results facility section. LIPID REFLEX TO Routine 07/14/2017 8:11 AM Routine general Res ults for this DIRECT LDL PANEL NET FISHER medical examination proc edure are in at a health care the results facility section. BASIC METABOLIC Routine 07/14/2017 8:11 AM Routine general Res ults for this PANEL NET FISHER medical examination procedur e are in at a [facility] care the results facility section. documented in this encounter Results PSA, screen (07/14/2017 8:11 AM NET FISHER) athologist Signature PSA 0.99 0 - 4 ug/L 07/15/2017 [place] 5:24 PM [facility] Comment: Assay Method: Chemiluminescence using Siemens [place] analyzer Specimen Anatomical Collection Method Collection Time Receive d Time (Source) Location / / Volume Laterality Blood specimen 07/14/2017 8:11 AM 017 8:16 (specimen) NET FISHER AM NET FISHER Sarabjit Tenorio MD LAB - BLOOD ORDERABLES Performing Organization Address City/State/ZIP Code Phon e Number M [facility] [address] [address] [phone] [facility] [address] [address], [place] [phone] (ABNORMAL) Basic metabolic panel (07/14/2017 8:11 AM NET FISHER) athologist Signature Sodium 137 133 - 144 07/15/2017 [place] mmol/L 5:15 PM NET FISHER [facility] Potassium 4.2 3.4 - 5.3 07/15/2017 [place] mmol/L 5:15 PM NET FISHER [facility] Chloride 105 94 - 109 07/15/2017 [place] mmol/L 5:15 PM NET FISHER [facility] Carbon Dioxide 18 (L) 20 - 32 07/15/2017 [place] mmol/L 5:15 PM [facility] Anion Gap 14 3 - 14 07/15/2017 [place] mmol/L 5:15 PM [facility] Glucose 92 70 - 99 07/15/2017 [place] mg/dL 5:15 PM [facility] Comment: Fasting specimen Urea Nitrogen 15 7 - 30 mg/dL 07/15/2017 5:15 PM [facility] Creatinine 1.29 (H) 0.66 - 1.25 07/15/2017 5:15 PM [facility] mg/dL [facility][1] GFR Estimate 56 (L) >60 mL/min/1.7m2 07/15/2017 5:15 PM F [facility] Comment: Non GFR Calc GFR Estimate If 68 >60 mL/min/1.7m2 07/15/2017 5:15 P M [facility] Black [facility][1] Comment: GFR Calc Calcium 9.7 8.5 - 10.1 mg/dL 07/15/2017 5:15 PM [facility] Specimen Anatomical Collection Method Collection Time Receive d Time (Source) Location / / Volume Laterality Blood specimen 07/14/2017 8:11 AM 017 8:16 (specimen) NET FISHER AM [facility] Sarabjit Tenorio MD LAB - BLOOD ORDERABLES Performing Organization Address City/State/ZIP Code Phon e Number [facility] [address] [place] [address] (ABNORMAL) Lipid panel reflex to direct LDL Fasting (07/14/2017 8:11 AM NET FISHER) athologist Signature Cholesterol 213 (H) <200 mg/dL 07/15/2017 [facility] 5:15 PM [facility][1] Comment: Desirable: <200 mg/dl Triglycerides 92 <150 mg/dL 07/15/2017 5:15 PM [facility] Comment: Fasting specimen HDL Cholesterol 79 >39 mg/dL 07/15/2017 5:15 PM [facility] LDL Cholesterol 116 (H) <100 mg/dL 07/15/2017 5:15 PM [facility] Calculated [facility][1] Comment: Above desirable: ??100-129 mg/dl Borderline High: ??130-159 mg/dL High: ? 160-189 mg/dL Very high: ? >189 mg/dl Non HDL Cholesterol 134 (H) <130 mg/dL 07/15/2017 5:15 PM [facility] Comment: Above Desirable: ??130-159 mg/dl Borderline high: ??160-189 mg/dl High: ? 190-219 mg/dl Very high: ? >219 mg/dl Specimen Anatomical Collection Method Collection Time Receive d Time (Source) Location / / Volume Laterality Blood specimen 07/14/2017 8:11 AM 017 8:16 (specimen) NET FISHER AM NET FISHER Sarabjit Tenorio MD LAB - BLOOD ORDERABLES Performing Organization Address City/[facility]/ZIP Code Phon e Number [facility] [address] [place] [address] Hepatitis C Screen Reflex to HCV RNA Quant and Genotype (07/14/2017 8:11 AM NET FISHER) [facility] gist Method Time Signature Hepatitis C Nonreactive NR^Nonrea 07/16/2017 [facility] ctive 10:35 AM [facility] Comment: Assay performance characteristics have n ot been established for newborns, infants, and children Specimen Anatomical Collection Method Collection Time Receive d Time (Source) Location / / Volume Laterality Blood specimen 07/14/2017 8:11 AM 017 8:16 (specimen) NET FISHER AM NET FISHER Sarabjit Tenorio MD LAB - BLOOD ORDERABLES Performing Organization Address City/State/ZIP Code Phon e Number [facility] [address] [place] [address] [facility] documented in this encounter Visit Diagnoses Diagnosis Routine general medical examination at a health care facility - Primary Need for hepatitis C screening test Special screening examination for other specified viral diseases Tobacco use disorder Nocturia documented in this encounter Care Teams Airline Reservationist Relationship Specialty Start Date End Date Sarabjit Tenorio MD PCP - General Family Practice 04/18/14 Sarabjit Tenorio MD PCP - Assigned PCP 7/31/14 3/5/19 [id number] [place] [address] Sarabjit Tenorio MD Assigned PCP 03/22/14 05/17/21 [address] [place] [id number] documented as of this encounter
--- OUTSIDE RECORDS SUMMARY | 2022-06-20 11:40 | XMS_ITS | Encounter Summary ---
:1950 Author Organization [place] Address [address] [place] [address]. [place] [address] Care Team Providers Name Role Phone Sarabjit Tenorio MD Primary Care Provider [phone] Sarabjit Tenorio MD Unavailable Sarabjit Tenorio MD Unavailable Encounter Details Date Type Department Care Team Description 01/06/2016 Radiant Appointment [facility] Sarabjit Tenorio [facility] [place] [address] [facility] [place], [address] [place] [address] [address] [place] [address] [place], [place] [phone] (Wo rk) [address] [phone] Social History Tobacco Use Types Packs/Day Years [...] Priority Date/Time Associated Diagnosis Comme nts XR CHEST 2 VIEWS Routine 01/06/2016 12:17 PM Cough Resu lts for this CDT procedure are i n the results section. documented in this encounter Results XR Chest 2 Views (01/06/2016 12:17 PM CDT) Anatomical Region Laterality Modality Chest Computed Radiography Specimen (Source) Anatomical Location Collection Method / Collectio n Time Received Time / Laterality Volume Impressions 01/06/2016 1:49 PM CDT IMPRESSION: No acute disease. SAVANNAH ANGEL MD Narrative 01/06/2016 1:49 PM CDT CHEST TWO VIEWS January 06, 2016 12:17 PM HISTORY: Cough. COMPARISON: None. FINDINGS: There are no acute infiltrates . The cardiac silhouette is not enlarged. Pulmonary vasculature is u nremarkable. Procedure Note Savannah Angel MD - 01/06/2016Fo rmatting of this note might be different from the original. CHEST TWO VIEWS January 06, 2016 12:17 PM HISTORY: Cough. COMPARISON: None. FINDINGS: There are no acute infiltrates . The cardiac silhouette is not enlarged. Pulmonary vasculature is u nremarkable. IMPRESSION: No acute disease. SAVANNAH ANGEL MD Sarabjit Tenorio MD IMG DIAGNOSTIC IMAGING ORDER CLIF documented in this encounter Visit Diagnoses Not on filedocumented in this encounter Care Teams Field Insurance Sales Manager Relationship Specialty Start Date End Date Sarabjit Tenorio MD PCP - General Family Practice 04/18/14 Sarabjit Tenorio MD PCP - Assigned PCP 03/22/14 10/25/18 [address] [place] [address] Sarabjit Tenorio MD Assigned PCP 03/22/14 05/17/21 [address] [place] [phone] documented as of this encounter
--- OUTSIDE RECORDS SUMMARY | 2022-06-20 11:40 | XMS_ITS | Encounter Summary ---
:1950 Author Organization [place] Address [address] [place] [address] Care Team Providers Name Role Phone Sarabjit Tenorio MD Primary Care Provider [phone] Sarabjit Tenorio MD Unavailable Sarabjit Tenorio MD Unavailable Reason for Visit Reason Onset Date Comments Onboarding 10/03/2014 [facility] - [facility] ER ONBOARDED Encounter Details Date Type Department Care Team Description 10/03/2014 Telephone [facility] Sarabjit Tenorio Onboardin g ([facility] Luis M Berry MD CHOICES - MEMBER [address] [place] [address], [address] [place] [address] ONBOARDED) [address] [place] [address] [place], [place] [phone] (Wo rk) [address] [phone] Social History Tobacco Use Types Packs/Day Years [...] on filedocumented in this encounter Care Teams Railroad Police Officer Relationship Specialty Start Date End Date Sarabjit Tenorio MD PCP - General Family Practice 04/18/14 Sarabjit Tenorio MD PCP - Assigned PCP 03/22/14 10/25/18 [address] [address] Sarabjit Tenorio MD Assigned PCP 03/22/14 05/17/21 [address] [address] documented as of this encounter
--- OUTSIDE RECORDS SUMMARY | 2022-06-20 11:40 | XMS_ITS | Encounter Summary ---
:1950 Author Organization [place] Address [address] [place] [address] Care Team Providers Name Role Phone Unavailable Primary Care Provider Unavailable Encounter Details Date Type Department Care Team Description 09/12/2003 Operative Report Karolyn Londono MD (Commercial Agent) [place] [address] (Wo rk) Social History Tobacco Use Types Packs/Day Years Used Date Smoking Tobacco: Never Assessed Sex Assigned at Date Recorded Not on file documented as of this encounter Miscellaneous Notes Op Note - Karolyn Londono - 09/12/2003 12:00 AM REMELT WORKER : 54 1st ASS'T: 2nd ASS'T: PRE-OPERATIVE DIAGNOSIS: POST-OPERATIVE DIAGNOSIS: OPERATION: Colonoscopy. TIME: 10:25 a.m. INDICATION FOR PROCEDURE: History of polyps in this 53-year- old gentleman. ALLERGIES: Haldol. PHYSICAL EXAMINATION: Heart and lungs unremarkable. MEDICATIONS: Sublimaze 0.1 mg, Versed 2 mg, Atropine 0.6 mg, all IV. FINDINGS: After obtaining informed consent including discussion of medication reaction risk, risk of bleeding, etc., and administering premedication and performing normal digital examination, the Olympus video pediatric dialable flexibility colonoscope was introduced in the usual fashion. The prep was good. The scope was advanced to the cecum. The appendiceal area was seen. The valve area was seen. I appreciate no lesions in the colon today. Retroflexion view in the rectum is negative. The patient tolerated the procedure well. The scope was withdrawn. ASSESSMENT: 1) Normal exam. 2) History of polyps. RECOMMENDATION: Re-do four years. Dr. Bustamante as usual. [id number] KAROLYN LONDONO MD [place]: Document: [id number] [place], [place] Name: EN ZAMORA LCN: ENDO DSC: 09/12/2003 [place], [place] Name: MR#: : Procedure Date: EN ZAMORA -14 1950 09/12/2003 Doctor: KAROLYN LONDONO MD OPERATIVE REPORT Page 1 of 2 LT WORKER documented in this encounter Plan of Treatment Not on filedocumented as of this encounter Visit Diagnoses Not on filedocumented in this encounter
--- OUTSIDE RECORDS SUMMARY | 2022-06-20 11:40 | XMS_ITS | Encounter Summary ---
:1950 Author Organization [place] Address [address] [facility] [place] [address] Care Team Providers Name Role Phone Sarabjit Tenorio MD Primary Care Provider [phone] Sarabjit Tenorio MD Unavailable Reason for Referral Consultation (Routine) - Closed Specialty Diagnoses / Procedures Referred By Contact Refer red To Contact Consuelo Rodriguez CNP ENT SPECIALTY [facility] [address] [place], [place] [address] [address] [place] [address] Phone: Fax: Referral ID Status Reason Start Date Expiration Date Visits Requ ested Visits Authorized [id number] Closed 02/26/2020 02/25/2021 1 1 Reason for Visit Reason Comments Urgent Care no fevers, no SOB, no coughi ng no wheezing, no covid exposure, former ssmoker quit 2 years ago Sinus Problem Sinus issued for a long time , has been using nasal spray, not able to breathe unless though mouth Encounter Details Date Type Department Care Team Description 02/26/2020 Office Visit [facility] Consueol Rodriguez, Rhinitis medicamentosa Urgent Care Estee reyna CNP (Primary Dx) [address] [place] [address] [phone] Social History Tobacco Use Types Packs/Day Years [...] / COVID-19? documented as of this encounter Last Filed [...] 02/26/2020 7:13 PM CDT per pt. Height - - Body Mass Index 22.39 04/13/2018 7:30 AM CDT documented in this encounter Patient Instructions Patient InstructionsConsuelo Rodriguez CNP - 02/26/2020 8:15 PM CDT Stop nasal spray. Start Fluticasone spray instead. If not clearing in a couple of weeks see ENT. documented in this encounter Progress Notes Consuelo Rodriguez CNP - 02/26/2020 8:15 PM CDT SUBJECTIVE: En Zamora is a 69 year old male presenting with a chief complaint of nasal congestion for 5 weeks. He has been using a decongestant nasal spray for several weeks and when he tries to stop it the symptoms worsen. Onset of symptoms was 5 week(s) ago. Course of illness is worsening. Severity moderate Previous Treatment: nasal spray, Loratidine and Phenylephrine Past Medical History: Diagnosis Date ??? Depressive disorder ??? H/O colonoscopy with polypectomy 2000 pre-cancer polyps Current Outpatient Medications Medication Sig Dispense Refill ??? fluticasone (FLONASE) 50 MCG/ACT nasal spray [place] 1 spray into both nostrils daily for 14 days 15.8 mL 0 Social History Tobacco Use ??? Smoking status: Former Smoker Packs/day: 1.00 Years: 50.00 Pack years: 50.00 Types: Cigarettes Start date: 04/23/1967 Last attempt to quit: 08/30/2017 Years since quittin.4 ??? Smokeless tobacco: Never Used ??? Tobacco comment: hand rolled Substance Use Topics ??? Alcohol use: Yes Alcohol/week: 0.0 standard drinks Comment: a few drinks per month Family History Problem Relation Age of Onset ??? Hypertension Mother ??? Dementia Mother ??? Cerebrovascular Disease Mother ??? Prostate Cancer Father metastatic ??? Alzheimer Disease Father ??? Alzheimer Disease Sister ??? Leukemia Brother ROS: 10 point ROS neg other than the symptoms noted above in the HPI. OBJECTIVE BP (!) 142/95 (BP Location: Left arm, Patient Position: Sitting) Pulse 86 Temp 97.6 ??F (36.4 ??C) (Oral) Resp 16 Wt 88.5 kg (195 lb) SpO2 98% BMI 22.39 kg/m?? GENERAL APPEARANCE: healthy appearing, alert EYES: PERRL, EOMI, sclera non-icteric HENT: ear canals and TM's normal and nasal mucosa very inflamed and swollen, clear rhinorrhea present NECK: no adenopathy or asymmetry, thyroid normal to palpation RESP: short expiratory wheeze heard in the left upper lobe CV: regular rates and rhythm, no murmurs, rubs, or gallop SKIN: no suspicious lesions or rashes ASSESSMENT/PLAN: ICD-10-CM 1. Rhinitis medicamentosa J31.0 fluticasone (FLONASE) 50 MCG/ACT nasal spray T48.5X5A Follow Up: Patient Instructions Stop nasal spray. Start Fluticasone spray instead. If not clearing in a couple of weeks see ENT. Consuelo Rodriguez APRN, CNP [place] [facility] Provider documented in this encounter Plan of Treatment Scheduled Referrals Name Type Priority Associated Diagnoses Order S [facility] OTOLARYNGOLOGY REFERRAL Referral Routine Orde red: 02/26/2020 documented as of this encounter Visit Diagnoses Diagnosis Rhinitis medicamentosa - Primary Other diseases of nasal cavity and sinus es documented in this encounter Care Teams Water Treatment Plant Operator Relationship Specialty Start Date End Date Sarabjit Tenorio MD PCP - General Family Practice 04/18/14 Sarabjit Tenorio MD Assigned PCP 03/22/14 05/17/21 [address] [place] [address] documented as of this encounter
--- OUTSIDE RECORDS SUMMARY | 2022-06-20 11:40 | XMS_ITS | Encounter Summary ---
:1950 Author Organization [place] Address [address] [place] [address] Care Team Providers Name Role Phone Sarabjit Tenorio MD Primary Care Provider [phone] Sarabjit Tenorio MD Unavailable Sarabjit Tenorio MD Unavailable Reason for Referral Diagnostic Procedure Outpatient - Closed Specialty Diagnoses / Procedures Referred By Contact Refer red To Contact Diagnoses Colon cancer screening Sarabjit Tenorio M [facility] [address] [place] [address] [place] [address] Phone: Fax: Referral ID Status Reason Start Date Expiration Date Visits Requ ested Visits Authorized [id number] Closed 04/18/2014 10/15/2014 1 1 Reason for Visit Reason Comments Physical Blood Draw patient IS fasting Encounter Details Date Type Department Care Team Description 04/18/2014 Office Visit [facility] Sarabjit Tenorio g eneral medical examination at a health care facility (Primary Dx); Clinic Luis M Berry MD Colon cancer screening; [place] [address] Need for Tdap vaccination; Road, [address] [place] [address] Benign neoplasm of skin of trunk, except scrotum [place] [phone] (Wo rk) [address] [phone] Social History Tobacco Use Types Packs/Day Years Used Date Smoking Tobacco: Every Day Cigarettes 0.8 45 Smokeless Tobacco: Never Comments: hand rolled Alcohol Use Standard Drinks/Week Comments Yes 0 (1 standard drink = 0.6 oz pure alcoho l) Sex Assigned at Date Recorded Not on file documented as of this encounter Last Filed Vital Signs Vital Sign Reading Time Taken Comments Blood Pressure 96/70 04/18/2014 7:05 AM CDT Pulse 68 04/18/2014 7:05 AM CDT Temperature 36.8 ??C (98.2 ??F) 04/18/2014 7:05 AM CDT Respiratory Rate 16 04/18/2014 7:05 AM CDT Oxygen Saturation - - Inhaled Oxygen Concentration - - Weight 83.9 kg (185 lb) 04/18/2014 7:05 AM CDT Height 190.5 cm (6' 3) 04/18/2014 7:05 AM CDT Body Mass Index 23.12 04/18/2014 7:05 AM CDT documented in this encounter Patient Instructions Patient InstructionsAwilda Hassan MA - 04/18/2014 6:55 AM CDT Preventive Health Recommendations Male Ages 50 - [...] instead of white grains and rice. ??? For bone health: Eat calcium-rich foods or take calcium pills (500 to 600 mg) twice a day with food. Also take vitamin D (1000 IU) each day. Lifestyle ??? Exercise for at least 150 [...] eye doctor every 1 to 2 years. ??? documented in this encounter Progress Notes Sarabjit Tenorio MD - 04/18/2014 6:55 AM CDT SUBJECTIVE: CC: En Zamora is an 63 year old male who presents for preventative health visit. Healthy Habits: ?? Do you get at least three servings of calcium containing foods daily (dairy, green leafy vegetables, etc.)? yes ?? Amount of exercise or daily activities, outside of work: 0 ?? Problems taking medications regularly not applicable ?? Medication side effects: No ?? Have you had an eye exam in the past two years? yes ?? Do you see a dentist twice per year? no ?? Do you have sleep apnea, excessive snoring or daytime drowsiness?no Other concerns to address: Look at spots on back Today's PHQ-2 Score: 0 Abuse: Current or Past(Physical, Sexual or Emotional)- No Do you feel safe in your environment - Yes History Substance Use Topics ??? Smoking status: Not on file ??? Smokeless tobacco: Not on file ??? Alcohol Use: Not on file The patient does not drink >3 drinks per day nor >7 drinks per week. Last PSA: No results found for this basename: psa No results found for this basename: CHOL, HDL, LDL, TRIG, CHOLHDLRATIO, in the last 39058 hours Reviewed orders with patient. Reviewed health maintenance and updated orders accordingly - Yes All Histories reviewed and updated in [facility]. Overdue for colonoscopy - did have polyps removed previously. Unsure on last tetanus. Noticing some weaker urine stream, not bothersome. Smokes hand rolled cigs, less than a pack a day. Is generally interested in quitting smoking. ROS: C: NEGATIVE for fever, chills, change in weight I: NEGATIVE for worrisome rashes, moles or lesions INTEGUMENTARY/SKIN: several spots on back E: NEGATIVE for vision changes or irritation [...] NEGATIVE for changes in mood or affect Problem list, Medication list, Allergies, and Medical/Social/Surgical histories reviewed in [facility] andupdated as appropriate. OBJECTIVE: There were no vitals taken for this visit. GENERAL APPEARANCE: healthy, alert and no distress EYES: Eyes grossly normal to inspection, PERRL and conjunctivae and sclerae normal HENT: ear canals and TM's normal, nose and mouth without ulcers or lesions, oropharynx clear and oral mucous membranes moist NECK: no adenopathy, no asymmetry, masses, or scars and thyroid normal to palpation RESP: lungs clear to auscultation - no rales, rhonchi or wheezes CV: regular rates and rhythm, normal S1 S2, no S3 or S4, no murmur, click or rub, no peripheral edema and peripheral pulses strong ABDOMEN: soft, nontender, no hepatosplenomegaly, no masses and bowel sounds normal (male): normal male genitalia without lesions or urethral discharge, no hernia RECTAL: normal sphincter tone, no rectal masses, prostate of normal size, smooth, nontender without nodules or masses MS: no musculoskeletal defects are noted and gait is age appropriate without ataxia SKIN: no suspicious lesions or rashes. Three jacklyn k on back NEURO: Normal strength and tone, sensory exam grossly normal, mentation intact and speech normal PSYCH: mentation appears normal and affect normal/bright ASSESSMENT/PLAN: (V70.0) Routine general medical examination at a health care facility (primary encounter diagnosis) Comment: Plan: Comprehensive metabolic panel, Lipid panel reflex to direct LDL, CBC with platelets (V76.51) Colon cancer screening Comment: Plan: GASTROENTEROLOGY ADULT REFERRAL +/- PROCEDURE (V06.1) Need for Tdap vaccination Comment: Plan: TDAP (ADACEL AGES 11-64) (216.5) Benign neoplasm of skin of trunk, except scrotum Comment: Plan: reassured Counseling Resources: ATP IV Guidelines Pooled Cohorts Equation Calculator FRAX Risk Assessment ICSI Preventive Guidelines Dietary Guidelines for Americans, 2010 [employer] regular exercise healthy diet/nutrition has no tobacco history on file. Tobacco Cessation Action Plan: Information offered: Patient not interested at this time There is no height or weight on file to calculate BMI. Sarabjit Tenorio MD [facility] documented in this encounter Nursing Notes Awilda Hassan MA - 04/18/2014 7:17 AM CDT Chief Complaint Patient presents with ??? Physical ??? Blood Draw patient IS fasting Initial BP 96/70 Pulse 68 Temp(Src) 98.2 ??F (36.8 ??C) (Oral) Resp 16 Ht 6' 3 (1.905 m) Wt 185 lb (83.915 kg) BMI 23.12 kg/m2 Estimated body mass index is 23.12 kg/(m^2) as calculated from the following: Height as of this encounter: 6' 3 (1.905 m). Weight as of this encounter: 185 lb (83.915 kg). BP completed using cuff size: regular Awilda Hassan MA documented in this encounter Plan of Treatment Scheduled Referrals Name Type Priority Associated Diagnoses Order S [facility] GASTROENTEROLOGY ADULT Referral Routine Colon cancer Order ed: 04/18/2014 REFERRAL +/- PROCEDURE screening documented as of this encounter Procedures Procedure Name Priority Date/Time Associated Comments Diagnosis LIPID REFLEX TO DIRECT Routine 04/18/2014 7:49 AM Routine Gene ral Results for this LDL PANEL CDT Medical Examination procedur e are in [facility] the results Facility section. COMPREHENSIVE Routine 04/18/2014 7:49 AM Routine General Resul ts for this METABOLIC PANEL CDT Medical Examination nedra garcia are in [facility] the results Facility section. CBC WITH PLATELETS Routine 04/18/2014 7:49 AM Routine General Results for this CDT Medical Examination jude reyna are in [facility] the results Facility section. documented in this encounter Results CBC with platelets (04/18/2014 7:49 AM CDT) athologist Signature WBC 8.1 4.0 - 11.0 [place] 10e9/L [facility] RBC Count 4.80 4.4 - 5.9 [place] 10e12/L [facility] Hemoglobin 15.5 13.3 - [place] 17.7 g/dL [facility] Hematocrit 45.0 40.0 - [place] 53.0 % [facility] MCV 94 78 - 100 [place] fl [facility] MCH 32.3 26.5 - [place] 33.0 pg [facility] MCHC 34.4 31.5 - [place] 36.5 g/dL [facility] RDW 12.2 10.0 - [place] 15.0 % [facility] Platelet Count 210 150 - 450 [place] 10e9/L [facility] Specimen Anatomical Collection Method Collection Time Receive d Time (Source) Location / / Volume Laterality Blood specimen 04/18/2014 7:49 AM 014 7:54 (specimen) CDT AM CDT Sarabjit Tenorio MD LAB - BLOOD ORDERABLES Performing Organization Address City/State/ZIP Code Phon e Number [facility] [address] [place] [address] (ABNORMAL) Lipid panel reflex to direct LDL (04/18/2014 7:49 AM CDT) athologist Signature Cholesterol 215 (H) <200 mg/dL [facility] Comment: LDL Cholesterol is the primary guide to therapy. The NCEP recommends further evaluation of: patients with cholesterol greater than 200 mg/dL if additional risk facto rs are present, cholesterol greater than 240 mg/dL, triglycerides greater than 1 50 mg/dL, or HDL less than 40 mg/dL. Triglycerides 120 0 - 150 mg/dL [place] [facility] [place] HDL Cholesterol 67 >40 mg/dL [place] [facility] [place] LDL Cholesterol Calculated 124 0 - 129 mg/dL [facility] Comment: LDL Cholesterol is the primary guide to therapy: LDL-cholesterol goal in high risk patients is <100 mg/dL and in very high risk patients is <70 mg/dL. VLDL-Cholesterol 24 0 - 30 mg/dL [facility] Cholesterol/HDL Ratio 3.2 0.0 - 5.0 [facility] Specimen Anatomical Collection Method Collection Time Receive d Time (Source) Location / / Volume Laterality Blood specimen 04/18/2014 7:49 AM 014 7:54 (specimen) CDT AM CDT Sarabjit Tenorio MD LAB - BLOOD ORDERABLES Performing Organization Address City/State/ZIP Code Phon e Number [facility] [place] [address] [place] [address] [facility] [address] [place] [address] (ABNORMAL) Comprehensive metabolic panel (04/18/2014 7:49 AM CDT) athologist Signature Sodium 137 133 - 144 [facility] mmol/L [place] Potassium 4.5 3.4 - 5.3 [facility] mmol/L [place] Chloride 105 94 - 109 [facility] mmol/L [place] Carbon Dioxide 28 20 - 32 [facility] mmol/L [place] Anion Gap 4 (L) 6 - 17 [facility] mmol/L [place] Glucose 96 70 - 99 [facility] mg/dL [place] Comment: Effective 03/21/2014, the reference range for this assay has changed to reflect new instrumentation/methodology. Urea Nitrogen 14 7 - 30 mg/dL [place] [facility] [place] Comment: Effective 03/21/2014, the reference range for this assay has changed to reflect new instrumentation/methodology. Creatinine 1.29 (H) 0.66 - 1.25 mg/dL [place] [facility] GFR Estimate 57 (L) >60 mL/min/1.7m2 [facility] Comment: Non GFR Calc GFR Estimate If Black 68 >60 mL/min/1.7m2 [facility] Comment: GFR Calc Calcium 9.4 8.5 - 10.1 mg/dL [facility] [place] Comment: Effective 03/21/2014, the reference range for this assay has changed to reflect new instrumentation/methodology. Bilirubin Total 0.6 0.2 - 1.3 mg/dL [facility] Albumin 4.0 3.3 - 4.9 g/dL [facility] S [place] Protein Total 7.1 6.8 - 8.8 g/dL [place] [facility] [place] Alkaline Phosphatase 81 40 - 150 U/L [facility] ALT 23 0 - 70 U/L [facility] AST 16 0 - 45 U/L [facility] Specimen Anatomical Collection Method Collection Time Receive d Time (Source) Location / / Volume Laterality Blood specimen 04/18/2014 7:49 AM 014 7:54 (specimen) CDT AM CDT Sarabjit Tenorio MD LAB - BLOOD ORDERABLES Performing Organization Address City/State/ZIP Code Phon e Number [facility] [place] [address] [place] [address] [facility] [address] [place], [place] [address] documented in this encounter Visit Diagnoses Diagnosis Routine general medical examination at a health care facility - Primary Colon cancer screening Special screening for malignant neoplasm s, colon Need for Tdap vaccination Need for prophylactic vaccination with c ombined cgdbshpyun-jxvhwgs-slzxjoppk (DTP) vaccine Benign neoplasm of skin of trunk, except scrotum documented in this encounter Care Teams Mechanic Marine Engine Relationship Specialty Start Date End Date Sarabjit Tenorio MD PCP - General Family Practice 04/18/14 Sarabjit Tenorio MD PCP - Assigned PCP 03/22/14 10/25/18 [address] [address] [place] [id number] Sarabjit Tenorio MD Assigned PCP 03/22/14 05/17/21 [address] [place] [address] documented as of this encounter
--- OUTSIDE RECORDS SUMMARY | 2022-06-20 11:40 | XMS_ITS | Encounter Summary ---
:1950 Author Organization [place] Address [address] [place] [address] Care Team Providers Name Role Phone Sarabjit Peterson MD Primary Care Provider [phone] Sarabjit Peterson MD Unavailable Sarabjit Peterson MD Unavailable Reason for Visit Auth/Cert - Closed Specialty Diagnoses / Procedures Referred By Contact Refer red To Contact Gastroenterology Diagnoses SCREENING Rh Endoscopy Procedures COLONOSCOPY [address] [place] [address] Phone: Fax: Referral ID Status Reason Start Date Expiration Date Visits Requ ested Visits Authorized [id number] Closed 1 1 Encounter Details Date Type Department Care Team Description 06/08/2014 Hospital Encounter [facility] Jose Lopez , Endoscopy Thi [place] [address] [place], [place] GASTROINTESTINAL [address] [address] [phone] [place], [place] [id number] (Wo rk) Social History Tobacco Use Types [...] Sign Reading Time Taken Comments Blood Pressure 122/77 06/08/2014 8:10 AM CDT Pulse - - Temperature - - Respiratory Rate 16 06/08/2014 8:10 AM CDT Oxygen Saturation 99% 06/08/2014 8:10 AM CDT Inhaled Oxygen Concentration - - [...] encounter Results COLONOSCOPY (06/08/2014 7:22 AM CDT) [facility] Method Time Signature COLONOSCOPY [facility] RAD IOLOGY RESULTS Patient Name: En Zamora ?Procedure Date: 06/08/2014 7:22 AM ? Accou nt Number: [id number] Date of : 1950 ? Admit Type: Outp atient Age: 63 ? Gender: Male Attending MD: Jose Lopez MD ?Instrument Name: Kermit-Alma 33 Procedure: ?Colonoscopy Indications: ?High ri sk [...] ?oxygen saturations were monitored continuously. The ?[id number] was introduced through the anus ?and advanced [...] history of colonic polyps CPT copyright 2013 [employer]. All rights reserved. The codes documented in this report are prelimin beverly and upon sales engineering manager review may be revised to meet current compliance requirements. Electronically signed by Jose Lopez MD Jose Lopez MD 06/08/2014 7:48 AM I was physically present for the entire viewing portion of t he exam. Number of Addenda: 0 Note Initiated On: 06/08/2014 7:22 AM MRN: ?[id number] Procedure Date: ? 06/08/2014 7:22:44 AM Scope [...] Diagnoses Not on filedocumented in this encounter Active and Recently Administered Medications Times are shown in CDT. PRN Medication Order 06/06/2014 06/07/2014 06/08/2014 fentaNYL (SUBLIMAZE) injection (CANCELED) 07 (Given - Provider: Jose Lopez MD) PRN, Starting Wed06/08/14 at 0727, moderate to severe pain, Int ra-procedure midazolam (VERSED) injection (CANCELED) 07 (Given - Provider: Jose Lopez MD) PRN, Starting Wed06/08/14 at 0727, anxiety, Intra-procedure sodium chloride (PF) 0.9% PF flush 3 mL (CANCELED) 726 (Given - Provider: Jose Lopez MD) 3 mL, Intravenous, EVERY 1 HOUR PRN, tia e flush, post meds or blood draw, Starting Wed06/08/14 at 0713, for peripheral IV line flush post IV meds, Pre-procedure documented in this encounter Care Teams Senior Internet Sales Consultant Relationship Specialty Start Date End Date Sarabjit Peterson MD PCP - General Family Practice 04/18/14 Sarabjit Petesron MD PCP - Assigned PCP 03/22/14 10/25/18 [address] [place] [id number] Sarabjit Peterson MD Assigned PCP 03/22/14 05/17/21 [address] [place] [address] documented as of this encounter
--- OUTSIDE RECORDS SUMMARY | 2022-06-20 11:40 | XMS_ITS | Encounter Summary ---
:1950 Author Organization [place] Address [facility] [address] Care Team Providers Name Role Phone Sarabjit Tenorio MD Primary Care Provider [phone] Sarabjit Tenorio MD Unavailable Sarabjit Tenorio MD Unavailable Reason for Referral Diagnostic Imaging XR - Closed Specialty Diagnoses / Procedures Referred By Contact Refer red To Contact Diagnoses Flatulence, eructation, and gas pain Sarabjit Tenorio MD Procedures XR Abdomen 1 View [address] [place] [address] Referral ID Status Reason Start Date Expiration Date Visits Requ ested Visits Authorized [id number] Closed 05/16/2018 05/16/2019 1 1 Consultation - Closed Specialty Diagnoses / Procedures Referred By Contact Refer red To Contact Diagnoses Taste absent Sarabjit Tenorio [place] [address] [facility] [address] [place] [address] [address] [place] [address] Phone: Fax: Referral ID Status Reason Start Date Expiration Date Visits Requ ested Visits Authorized [id number] Closed 05/16/2018 05/16/2019 1 1 - Closed Specialty Diagnoses / Procedures Referred By Contact Refer red To Contact Diagnoses Encounter for immunization Sarabjit Tenorio MD Procedures PNEUMOCOCCAL [place] [id number] [place] [address] Referral ID Status Reason Start Date Expiration Date Visits Requ ested Visits Authorized [id number] Closed 05/16/2018 05/16/2019 1 1 Reason for Visit Reason Comments Derm Problem follow up for scabies Encounter Details Date Type Department Care Team Description 05/16/2018 Office Visit [facility] Sarabjit Tenorio Encounter for immunization (Primary Dx); Clinic Luis M Berry MD Taste absent; [place] [address] [address] Abnormal weight gain; Road, [address] [place], [place] Flatulence, eructation, [place] [id number] Social History Tobacco Use Types Packs/Day Years [...] Sign Reading Time Taken Comments Blood Pressure 134/80 05/16/2018 9:33 AM CDT Pulse 52 05/16/2018 9:33 AM CDT Temperature 36.9 ??C (98.5 ??F) 05/16/2018 9:33 AM CDT Respiratory Rate 12 05/16/2018 9:33 AM CDT Oxygen Saturation - - Inhaled Oxygen Concentration - - Weight 89.4 kg (197 lb) 05/16/2018 9:33 AM CDT Height - - Body Mass Index 22.62 04/13/2018 7:30 AM CDT documented in this encounter Patient Instructions Patient InstructionsBendSarabjit deal MD - 05/16/2018 9:20 AM CDT Miralax - every two hours until effective Start probiotic (many kinds) and fiber supplement (like Metamucil) afterwards. documented in this encounter Progress Notes Sarabjit Tenorio MD - 05/16/2018 9:20 AM CDT HPI SUBJECTIVE: En Zamora is a 67 year old male who presents to clinic today for the following health issues: Concern - Derm problem Onset: 04/13/18 ?? Description: Follow up for Scabies ?? Intensity: mild ?? Progression of Symptoms: Improving although only used the cream twice ?? Accompanying Signs & Symptoms: Still has bumps but is unsure if the problem is cured ?? Previous history of similar problem: None ?? Precipitating factors: Worsened by: None ?? Alleviating factors: Improved by: prescribed cream Therapies Tried and outcome: as documented Sense of taste is unchanged. Per En, dentist can find no reason for this. Still having issues with bloating, constipation, early satiety. Weight is up since being seen last, since quitting smoking. Did use Miralax, would have only small amounts of soft stool. Is eating less.Did have colonoscpy 06/05. Rash is much better, no new bumps. No itching. Review of Systems Constitutional: Negative. HENT: Negative for congestion. Gastrointestinal: Positive for abdominal pain and constipation. Negative for blood in stool and melena. Genitourinary: Negative. Physical Exam Constitutional: He is oriented to person, place, and time and well-developed, well-nourished, and inno distress. Eyes: Conjunctivae and EOM are normal. Cardiovascular: Normal rate, regular rhythm and normal heart sounds. Pulmonary/Chest: Effort normal and breath sounds normal. Abdominal: Normal appearance and bowel sounds are normal. There is no hepatosplenomegaly. There is no tenderness. Musculoskeletal: He exhibits no edema. Neurological: He is alert and oriented to person, place, and time. Skin: Skin is warm and dry. Vitals reviewed. (Z23) Encounter for immunization (primary encounter diagnosis) Comment: Plan: PNEUMOCOCCAL VACCINE,ADULT,SQ OR IM (R43.2) Taste absent Comment: no clear cause Plan: OTOLARYNGOLOGY REFERRAL (R63.5) Abnormal weight gain Comment: will check Plan: TSH with free T4 reflex (R14.3, R14.1, R14.2) Flatulence, eructation, and gas pain Comment: markedly constipated on xr, will do full clens - miralax every 2 hours until effectgive. Start probiotic and fiber afterwards Plan: XR Abdomen 1 View RTC in 1m prn Sarabjit Tenorio MD documented in this encounter Plan of Treatment Scheduled Referrals Name Type Priority Associated Diagnoses Order S chedule OTOLARYNGOLOGY REFERRAL Referral Routine Taste absent Orde red: 05/16/2018 documented as of this encounter Procedures Procedure Name Priority Date/Time Associated Diagnosis Comme nts TSH WITH FREE T4 Routine 05/16/2018 9:59 AM Abnormal weight ga in Results for this REFLEX CDT procedure are i n the results [...] Tenorio MD IMG DIAGNOSTIC IMAGING ORDER CLIF TSH with free T4 reflex (05/16/2018 9:59 AM CDT) P athologist Signature TSH 1.23 0.40 - 4.00 05/17/2018 [facility] mU/L 11:40 AM CDT [facility] Specimen Anatomical Collection Method Collection Time Receive d Time (Source) Location / / Volume Laterality Blood specimen 05/16/2018 9:59 AM 018 (specimen) CDT 10:04 AM CDT Sarabjit Tenorio MD LAB - BLOOD ORDERABLES Performing Organization Address City/State/ZIP Code Phon e Number [facility] [address] [place] [address] documented in this encounter Visit Diagnoses Diagnosis Encounter for immunization - Primary Need for other specified prophylactic va ccination against single bacterial disease Taste absent Disturbances of sensation of smell and t aste Abnormal weight gain Flatulence, eructation, and gas pain Flatulence, eructation, and gas pain documented in this encounter Care Teams Assorter Relationship Specialty Start Date End Date Sarabjit Tenorio MD PCP - General Family Practice 04/18/14 Sarabjit Tenorio MD PCP - Assigned PCP 03/22/14 10/25/18 [address] [address] [place] [id number] Sarabjit Tenorio MD Assigned PCP 03/22/14 05/17/21 [address] [address] [place] [id number] documented as of this encounter
--- OUTSIDE RECORDS SUMMARY | 2022-06-20 11:40 | XMS_ITS | Encounter Summary ---
:1950 Author Organization [place] Address [address] [facility] [place] [address] Care Team Providers Name Role Phone Sarabjit Tenorio MD Primary Care Provider [phone] Sarabjit Tenorio MD Unavailable Sarabjit Tenorio MD Unavailable Reason for Visit Reason Comments Derm Problem rash on feet and legs Mouth Problem greatest concern today; meta llic taste in mouth Abdominal Pain bloating and discomfort Encounter Details Date Type Department Care Team Description 04/13/2018 Office Visit [facility] Sarabjit Tenorio Dysgeusia (Primary Dx); Clinic Luis M Berry MD Scabies; [place] [address] Flatulence, eructation, and gas pain; Road, [address] [place] [address] CRF (chronic renal failure), stage 2 (va ld) [place], [place] [phone] (Wo rk) [address] [phone] Social History Tobacco Use Types Packs/Day Years [...] Sign Reading Time Taken Comments Blood Pressure 104/78 04/13/2018 7:30 AM CDT Pulse 64 04/13/2018 7:30 AM CDT Temperature 36.9 ??C (98.5 ??F) 04/13/2018 7:30 AM CDT Respiratory Rate 16 04/13/2018 7:30 AM CDT Oxygen Saturation - - Inhaled Oxygen Concentration - - Weight 87.7 kg (193 lb 6.4 oz) 04/13/2018 7:30 AM CDT Height 198.8 cm (6' 6.25) 04/13/2018 7:30 AM CDT Body Mass Index 22.21 04/13/2018 7:30 AM CDT documented in this encounter Patient Instructions Patient InstructionsBendSarabjit deal MD - 04/13/2018 8:08 AM CDT Images from the original note were not included. Scabies Scabies is a skin infection. It is caused by a tiny??parasitic insect, or mite, that is too small tosee directly. It can be seen under a microscope, but it is usually recognized??only by the rash and symptoms it causes. This can make it hard to diagnose since the signs and symptoms can be similar to other diseases. The scabies mite tunnels under the skin. It creates a small penny, where it leaves its eggs. These eggs torres and grow into adults. They then create new burrows over the next 1 to 2 weeks. The mites in about 4 to 6 weeks. The rash and itching are caused by an allergic reaction to the scabies saliva or feces. Scabies is highly contagious. It is spread by direct skin contact. It is easily spread by close personal contact, sexual contact, or by sharing bed linens or clothing used by an infected person. It may take 4 to 6 weeks for symptoms to appear after being exposed. Everyone living in the house with you, as well as your sexual partners, should be treated at the same time. After the first treatment, you will no longer be contagious. You may return to work, school or daycare. Home care ?? Machine wash in hot water all sheets, towels, pillowcases, underwear, pajamas, and any other clothing you have worn lately. Use the hot cycle of a dryer or use a hot iron to sterilize. ?? Seal anything that is hard to wash in a plastic trash bag for 4 days. This includes coats, jackets, blankets, and bedspreads. (The insects after 3 days off the human body.) Medicines Scabicides Medicines used to treat scabies are called scabicides. These are creams that kill the scabies mites.A prescription is needed. When using these medicines: ?? Always follow instructions provided by your healthcare provider and pharmacist. Also follow the printed instructions that come with the medicine. ?? Talk with your provider about precautions to take when using these medicines. ?? Use the cream on your body when your skin is cool and dry. Don???t use it after a hot shower or bath. ?? Usually the cream is put on your whole body. This means from your chin all the way down to your toes.??Scabies does not usually affect an adult???s head. So cream is not needed there.??For children,discuss this with your child???s provider. ?? Leave the cream or lotion on for the recommended amount of time. This is usually 8 to 12 hours. ?? Don???t leave cream or lotion on your skin longer than directed. Don???t use more than recommended. ?? Clean clothes should be worn after the treatment. ?? If you wash your hands after using the cream, you will need to reapply the cream to your hands. ?? If you are , wash off your nipples before feeding. Then reapply the cream after . ?? For babies or infants, put mittens on their hands. This will stop them from licking the cream or lotion. It will also stop them from scratching themselves because of the itching. Other medicines ?? An oral medicine called ivermectin may be prescribed for severe cases. It may also be used if youcan???t apply creams. ?? Itching may cause the most discomfort. If large areas of your skin are affected,??tpxy-lod-braudxp antihistamines??may be used to reduce itching. Or you may be given a prescription antihistamine.??Some of these medicines may make you sleepy. They are best used at bedtime. Antihistamines that don???t make you sleepy can be used during the day.??Note: Don???t use??medicine that has diphenhydramine??if you have glaucoma, or if you are a man who has trouble urinating due to an enlarged prostate. ?? If you were given antibiotics due to a bacterial infection, take them until they are finished. Itis important to finish the antibiotics even if the wound looks better. This is to make sure the infection has cleared. Follow-up care Follow up with your healthcare provider, or as advised. Call your provider if your symptoms don???t improve after 1 week, or if new burrows or rashes appear. When to seek medical advice Call your healthcare provider right away if any of these occur: ?? Yellow-brown crusts or drainage from the sores ?? Other signs of infection, including increasing redness, swelling, pain, or pus ?? Fever of 100.4??F (38??C) or higher, or as directed by your provider Date Last Reviewed: 03/23/2016 ?? [id number] [employer]. [address] [place] [address]. All rights reserved. This information is not intended as a substitute for professional medical care. Always follow your healthcare professional's instructions. Miralax every 2 hours until clean. Then daily fiber and probiotic. documented in this encounter Progress Notes Sarabjit Tenorio MD - 04/13/2018 7:20 AM CDT HPI SUBJECTIVE: En Zamora is a 67 year old male who presents to clinic today for the following health issues: Concern - Mouth problem Onset: going on for some time ?? Description: Bad metallic taste in mouth ?? Intensity: moderate ?? Progression of Symptoms: same ?? Accompanying Signs & Symptoms: Saw a dentist and was told that he has severe gum disease. Seeing Dr. Simone Pond, [place] ?? Previous history of similar problem: None ?? Precipitating factors: Worsened by: Previous smoker; quite 1-8-18 ?? Alleviating factors: Improved by: None Therapies Tried and outcome: None Rash Onset: Ongoing; doesn't recall when it started ?? Description: Location: lower legs and feet, forearms and elbows Character: round, red Itching (Pruritis): YES ?? Progression of Symptoms: Constant; moving ?? Accompanying Signs & Symptoms: Fever: no Body aches or joint pain: YES- knees Sore throat symptoms: no Recent cold symptoms: no ?? History: Previous similar rash: no ?? Precipitating factors: Exposure to similar rash: no New exposures: None Recent travel: no ?? Alleviating factors: None Therapies Tried and outcome: None Several issues - top three: mouth concerns, bloating/constipation, rash. Mouth concerns - temperature sensitivity, odd metallic taste, tongue feels swollen. No noticed reduction in ability to smell. Is working with dentist, has severe gum diease. Notes that this seems to all have started since quitting smoking 09/09. Did use Chantix for about two months, found it very helpful. Notes feeling bloated after eating, like a basketball in my belly. BMs every other day or two. Noting weight gain since quitting smoking of about 20#. Denies heartburn, excessive belching. BM tends to be small volume, sometimes small, hard, lumps. Sometimes uncomfortable, has to strain. Rarely feelsthat he's done. Tried miralax, but only once, didn't help. Intense itching, bumps, along edge of foot, tracking up leg. Tends to run in lines. Has been presentfor several months. does not have anything similar. Review of Systems Constitutional: Negative. HENT: Negative for congestion and sore throat. Dysguesia Gastrointestinal: Positive for abdominal pain and constipation. Genitourinary: Negative. Skin: Positive for itching and rash. Neurological: Negative. Physical Exam Constitutional: He is oriented [...] time. Skin: Skin is warm and dry. Chaining, discrete lesions, mostly confined to feet and lower leg DEVANG. Vitals reviewed. (R43.2) Dysgeusia (primary encounter diagnosis) Comment: suspect this could have been triggered by Chantix, but would have expected this to resolve by new. Will check for some metabolic issues. Advise inquiring with dentist as well Plan: Comprehensive metabolic panel (B86) Scabies Comment: advised to repeat tx in 10 days. Launder sheets and clothing Plan: permethrin (ELIMITE) 5 % cream (R14.3, R14.1, R14.2) Flatulence, eructation, and gas pain Comment: advise miralax cleanse, probiotic, fiber Plan: Comprehensive metabolic panel, CBC with platelets (N18.2) CRF (chronic renal failure), stage 2 (mild) Comment: rechcking Plan: RTC in 1m Sarabjit Tenorio MD documented in this encounter Plan of Treatment Not on filedocumented as of this encounter Procedures Procedure Name Priority Date/Time Associated Comments Diagnosis COMPREHENSIVE Routine 04/13/2018 8:26 AM Dysgeusia Results for this METABOLIC PANEL CDT Flatulence, procedure ar e in eructation, and gas the resu lts pain section. CBC WITH PLATELETS Routine 04/13/2018 8:26 AM Flatulence, Res ults for this CDT eructation, and gas procedur e are in pain the results section. documented in this encounter Results CBC with platelets (04/13/2018 8:26 AM CDT) P athologist Signature WBC 5.5 4.0 - 11.0 04/13/2018 [facility] 10e9/L 9:05 AM CDT [facility] RBC Count 4.63 4.4 - 5.9 04/13/2018 [facility] 10e12/L 9:05 AM CDT [facility] Hemoglobin 14.6 13.3 - 04/13/2018 [facility] 17.7 g/dL 9:05 AM CDT [facility] Hematocrit 42.4 40.0 - 04/13/2018 [facility] 53.0 % 9:05 AM CDT [facility] MCV 92 78 - 100 04/13/2018 [facility] fl 9:05 AM CDT [facility] MCH 31.5 26.5 - 04/13/2018 [facility] 33.0 pg 9:05 AM CDT [facility] MCHC 34.4 31.5 - 04/13/2018 [facility] 36.5 g/dL 9:05 AM CDT [facility] RDW 12.0 10.0 - 04/13/2018 [facility] 15.0 % 9:05 AM CDT [facility] Platelet Count 213 150 - 450 04/13/2018 [facility] 10e9/L 9:05 AM CDT [facility] Specimen Anatomical Collection Method Collection Time Receive d Time (Source) Location / / Volume Laterality Blood specimen 04/13/2018 8:26 AM 018 8:31 (specimen) CDT AM CDT Sarabjit Tenorio MD LAB - BLOOD ORDERABLES Performing Organization Address City/State/ZIP Code Phon e Number [facility] [place] [address] (ABNORMAL) Comprehensive metabolic panel (04/13/2018 8:26 AM CDT) [facility] gist Method Time Signature Sodium 136 133 - 144 04/13/2018 [facility] mmol/L 5:39 PM CDT [facility] Potassium 4.1 3.4 - 5.3 04/13/2018 [facility] mmol/L 5:39 PM CDT [facility] Chloride 104 94 - 109 04/13/2018 [facility] mmol/L 5:39 PM CDT [facility] Carbon Dioxide 26 20 - 32 04/13/2018 [facility] mmol/L 5:39 PM CDT [facility] Anion Gap 6 3 - 14 04/13/2018 [facility] mmol/L 5:39 PM CDT [facility] Glucose 102 (H) 70 - 99 04/13/2018 [facility] mg/dL 5:39 PM CDT [facility] Urea Nitrogen 15 7 - 30 04/13/2018 [facility] mg/dL 5:39 PM CDT [facility] Creatinine 1.32 (H) 0.66 - 04/13/2018 [facility] 1.25 5:39 PM CDT [facility] mg/dL [facility] GFR Estimate 54 (L) >60 04/13/2018 [facility] mL/min/1. 5:39 PM CDT [facility] 7m2 [facility] Comment: Non GFR Calc GFR Estimate If 66 >60 mL/min/1.7m2 04/13/2018 5:39 P [facility] Black T [facility] Comment: GFR Calc Calcium 8.9 8.5 - 10.1 04/13/2018 5:[address] [facility] mg/dL T [facility] Bilirubin Total 0.6 0.2 - 1.3 mg/dL 04/13/2018 5:39 PM [facility] Albumin 4.0 3.4 - 5.0 g/dL 04/13/2018 5:39 PM [facility] Protein Total 7.1 6.8 - 8.8 g/dL 04/13/2018 5:39 PM [facility] Alkaline Phosphatase 83 40 - 150 U/L 04/13/2018 5:39 PM [facility] ALT 23 0 - 70 U/L 04/13/2018 5:39 PM [facility] T [facility] AST 19 0 - 45 U/L 04/13/2018 5:39 PM [facility] Specimen Anatomical Collection Method Collection Time Receive d Time (Source) Location / / Volume Laterality Blood specimen 04/13/2018 8:26 AM 018 8:31 (specimen) CDT AM CDT Sarabjit Tenorio MD LAB - BLOOD ORDERABLES Performing Organization Address City/State/ZIP Code Phon e Number [facility] [address] [place] [address] documented in this encounter Visit Diagnoses Diagnosis Dysgeusia - Primary Disturbances of sensation of smell and t aste Scabies Flatulence, eructation, and gas pain CRF (chronic renal failure), stage 2 (mi ld) documented in this encounter Care Teams Waiter/Waitress Buffet Relationship Specialty Start Date End Date Sarabjit Tenorio MD PCP - General Family Practice 04/18/14 Sarabjit Tenorio MD PCP - Assigned PCP 03/22/14 10/25/18 [address] [address] [place] [id number] Sarabjit Tenorio MD Assigned PCP 03/22/14 05/17/21 [address] [address] [place] [id number] documented as of this encounter
--- OUTSIDE RECORDS SUMMARY | 2022-06-20 11:40 | XMS_ITS | Encounter Summary ---
:1950 Author Organization [place] Address [facility] [place] [address] Care Team Providers Name Role Phone Sarabjit Tenorio MD Primary Care Provider [phone] Sarabjit Tenorio MD Unavailable Reason for Referral Consultation (Routine) - Closed Specialty Diagnoses / Procedures Referred By Contact Refer red To Contact Diagnoses Chronic sinusitis, unspecified location [facility] [address] [facility] [address] [place] [address] [place] [address] Fax: Referral ID Status Reason Start Date Expiration Date Visits Requ ested Visits Authorized [id number] Closed 02/26/2020 02/25/2021 1 1 Reason for Visit Reason Onset Date Comments Referral 02/26/2020 ENT Encounter Details Date Type Department Care Team Description 02/26/2020 Telephone [facility] Sarabjit Tenorio, Referral (ENT) Luis M [place] [address] [facility], [address] [place] [address] [place] [address] [phone] Social History Tobacco Use Types Packs/Day Years Used Date Smoking Tobacco: Former Cigarettes 1 50 09/0 08/1966 - 08/30/2017 Smokeless Tobacco: Never Comments: hand rolled Alcohol Use Standard Drinks/Week Comments Yes 0 (1 standard drink = 0.6 oz pure alcoho l) a few drinks per month Sex Assigned at Date Recorded Not on file documented as of this encounter Miscellaneous Notes Telephone Encounter - Sarabjit Tenorio MD - 02/26/2020 11:48 AM CDT Referral sent Sarabjit Tenorio MD Telephone Encounter - Kenia Rojas - 02/26/2020 8:20 AM CDT Patient called today. Patient has had a history of chronic sinus pressure/congestion. Patient has been taking over the counter nasal spray for about 2 weeks or more ( point zero 5%) Patient would like a referral for ENT. Patient hasn't been seen in 2 years. Please contact patient. Thank you. Central Scheduling Kenia Otto documented in this encounter Plan of Treatment Scheduled Referrals Name Type Priority Associated Diagnoses Order S [facility] OTOLARYNGOLOGY REFERRAL Referral Routine Chronic sinusitis , Ordered: 02/26/2020 unspecified location documented as of this encounter Visit Diagnoses Diagnosis Chronic sinusitis, unspecified location - Primary documented in this encounter Care Teams Stucco Worker Relationship Specialty Start Date End Date Sarabjit Tenorio MD PCP - General Family Practice 04/18/14 Sarabjit Tenorio MD Assigned PCP 03/22/14 05/17/21 [address] [place] [address] documented as of this encounter
--- OUTSIDE RECORDS SUMMARY | 2022-06-20 11:40 | XMS_ITS | Clinical Summary ---
:1950 Author Organization [facility] [place] [address] Care Team Providers Name Role Phone Sarabjit Tenorio MD Primary Care Provider Allergies No known active allergies Medications Medication Sig Dispensed Refills Start Date End Date Status fish oil-omega-3 fatty Take by mouth. 0 Active acids (FISH OIL) 1,000-340 mg capsule aspirin (ECOTRIN) 81 mg Take by mouth. 0 Active enteric coated tablet Active Problems Problem Noted Date Presbyopia 09/21/2017 Hyperopic astigmatism of left eye 09/21/2017 Regular astigmatism of right eye 09/21/2017 Pseudophakia of right eye 09/21/2017 Nuclear senile cataract of left eye 07/27/2017 EPICONDYLITIS, LATERAL 03/31/2001 Social History Tobacco Use Types Packs/Day Years Used Date Former Smoker 1 Smokeless Tobacco: Never Used Sex Assigned at Date Recorded Not on file Obstetrics History Last Filed Vital Signs Vital Sign Reading Time Taken Comments Blood Pressure 131/78 07/31/2019 4:58 PM HOME RESTORATION SERVICE CLEANER Pulse 74 07/31/2019 4:58 PM HOME RESTORATION SERVICE CLEANER Temperature 36.4 ??C (97.5 ??F) 08/12/2017 11:44 AM HOME RESTORATION SERVICE CLEANER Respiratory Rate 16 08/12/2017 2:02 PM HOME RESTORATION SERVICE CLEANER Oxygen Saturation 98% 08/12/2017 2:02 PM HOME RESTORATION SERVICE CLEANER Inhaled Oxygen Concentration - - Weight 78.9 kg (174 lb) 08/12/2017 11:44 AM HOME RESTORATION SERVICE CLEANER Height 192 cm (6' 3.6) 08/12/2017 11:44 AM HOME RESTORATION SERVICE CLEANER Body Mass Index 21.4 08/12/2017 11:44 AM HOME RESTORATION SERVICE CLEANER Plan of Treatment Health Maintenance Due Date Last Done Comments COVID-19 vaccine series (#1) 02/17/1951 Tdap 1963 Depression screening for age 12+ 1964 BMI (ht and wt on same day) for age 18+ 1970 Hepatitis C screening for age 18-79 1970 Tetanus booster 1972 Colonoscopy through age 75 1997 Lipids for age 45-75 1997 Zoster (shingles) series for age 50+ (1 of 2) 2002 Medicare Wellness for age 65+ 2017 Pneumococcal series for age 65+ (1 - PCV) 2017 Influenza for age 65+ 04/23/2022 Medical Devices Implanted Type Area Cross Cut Sawyer Device Shelf Model / Serial Identifier Expiration / Lot Date Iol Charlton +22.5 Acrysof Iq [id number] - [id number] Right: Al con 08/22/2021 [id number]# / Implanted: Qty: 1 on 08/12/2017 by Ruddy Chan MD at [facility] [id number] / Results Not on filefrom Last 3 Months Insurance Payer Benefit Plan / Subscriber ID Effective Dates Phone Addre ss Type Group MEDICARE PART B MEDICARE PART B [id number] 2017-Prese ATTN: CLAIMS - HB USE ONLY HB ONLY nt [address] [place] [address] [place] BLUE [place]OSS [id number] 2018-Presen [address] [place], [place] [id number] BLUE CROSS BLUE CROSS [id number] 2017-[place] [address] [address] [place] [address], [place] [id number] Advance Directives Latest Code Status on File Code Status Date Activated Date Inactivated Comments Full Code 08/12/2017 11:40 AM 08/12/2017 4:16 PM Care Teams Organizational Effectiveness Consultant Relationship Specialty Start Date End Date Sarabjit Tenorio MD PCP - General 06/14/17
--- OUTSIDE RECORDS SUMMARY | 2022-06-20 11:40 | XMS_ITS | Encounter Summary ---
:1950 Author Organization [facility] Address [address] [place] [address] Care Team Providers Name Role Phone Sarabjit Tenorio MD Primary Care Provider [phone] Sarabjit Tenorio MD Unavailable Sarabjit Tenorio MD Unavailable Reason for Visit Reason Comments Flu Shot Encounter Details Date Type Department Care Team Description 06/07/2018 Allied Health/Nurse [facility] Flu Shot Visit [place] [address] [facility], [address] [place] [address] Social History Tobacco Use Types Packs/Day Years Used Date Smoking Tobacco: Former Cigarettes 1 50 08/1966 - 08/30/2017 Smokeless Tobacco: Never Comments: hand rolled Alcohol Use Standard Drinks/Week Comments Yes 0 (1 standard drink = 0.6 oz pure alcoho l) a few drinks per month Sex Assigned at Date Recorded Not on file documented as of this encounter Progress Notes June Bloom CMA - 06/07/2018 9:30 AM CDT Injectable Influenza Immunization Documentation 1. Is the person to be vaccinated sick today? No 2. Does the person to be vaccinated have an allergy to a component of the vaccine? No Egg Allergy Algorithm Link 3. Has the person to be vaccinated ever had a serious reaction to influenza vaccine in the past? No 4. Has the person to be vaccinated ever had Guillain-Aguirre?? syndrome? No Form completed by June Bloom CMA ([facility]) documented in this encounter Plan of Treatment Not on filedocumented as of this encounter Visit Diagnoses Diagnosis Need for prophylactic vaccination and in oculation against influenza - Primary documented in this encounter Care Teams Manufacturing Chief Engineer Relationship Specialty Start Date End Date Sarabjit Tenorio MD PCP - General Family Practice 04/18/14 Sarabjit Tenorio MD PCP - Assigned PCP 03/22/14 10/25/18 [address] [place] [id number] Sarabjit Tenorio MD Assigned PCP 03/22/14 05/17/21 [address] [place] [address] documented as of this encounter
--- OUTSIDE RECORDS SUMMARY | 2022-06-20 11:40 | XMS_ITS | Encounter Summary ---
:1950 Author Organization [facility] Address [address] [place] [address] Care Team Providers Name Role Phone Sarabjit Tenorio MD Primary Care Provider [phone] Sarabjit Tenorio MD Unavailable Sarabjit Tenorio MD Unavailable Reason for Visit Reason Comments URI Encounter Details Date Type Department Care Team Description 01/06/[address] [facility] Sarabjit Tenorio [facility] bro nchitis, unspecified organism (Primary Dx); Clinic Luis M Berry MD Needs smoking cessation education; [address] [address] [facility], [address] [place], [place] [address] [place] [address] (Wo rk) [address] [phone] Social History Tobacco Use Types Packs/Day Years Used Date Smoking Tobacco: Every Day Cigarettes 0.8 45 Smokeless Tobacco: Never Comments: hand rolled Alcohol Use Standard Drinks/Week Comments Yes 0 (1 standard drink = 0.6 oz pure alcoho l) Sex Assigned at Date Recorded Not on file documented as of this encounter Last Filed Vital Signs Vital Sign Reading Time Taken Comments Blood Pressure 102/78 01/06/2016 11:46 AM CDT Pulse 62 01/06/2016 11:46 AM CDT Temperature 36.8 ??C (98.3 ??F) 01/06/2016 11:46 AM CDT Respiratory Rate 16 01/06/2016 11:46 AM CDT Oxygen Saturation 99% 01/06/2016 11:46 AM CDT Inhaled Oxygen Concentration - - Weight 84.4 kg (186 lb) 01/06/2016 11:46 AM CDT Height 190.5 cm (6' 3) 01/06/2016 11:46 AM CDT Body Mass Index 23.25 01/06/2016 11:46 AM CDT documented in this encounter Progress Notes Sarabjit Tenorio MD - 01/06/2016 7:24 AM CDT HPI SUBJECTIVE: En Zamora is a 65 year old male who presents to clinic today for the following health issues: RESPIRATORY SYMPTOMS ?? Duration: ongoing for years, last 10 days much worse ?? Description nasal congestion, rhinorrhea, sore throat, cough, fever and chills, headaches ?? Severity: moderate ?? Accompanying signs and symptoms: rib pain ?? History (predisposing factors): tobacco abuse ?? Precipitating or alleviating factors: None ?? Therapies tried and outcome: Acetaminophen,ibuprofen, otc sinus and cold wondering about an inhaler? Has been having respiratory symptoms for the last several months. Have been going on for over a week, seems to be getting worse. Also having chills and sweats, fever, congestion, rhinorrhea. Is ready to quit smoking. 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 Review of Systems Constitutional: Positive for fever and chills. HENT: Positive for congestion. Negative for sore throat. Respiratory: Positive for cough and wheezing. Negative for shortness of breath. Gastrointestinal: Negative. Neurological: Positive for headaches. Physical Exam Constitutional: He is well-developed, well-nourished, and in no distress. No distress. HENT: Right Ear: Tympanic membrane, external ear and ear canal normal. Left Ear: Tympanic membrane, external ear and ear canal normal. Mouth/Throat: Oropharynx is clear and moist. No oropharyngeal exudate. Eyes: Conjunctivae are normal. Neck: Neck supple. Cardiovascular: Normal rate, regular rhythm and normal heart sounds. Pulmonary/Chest: Effort normal. He has no decreased breath sounds. He has wheezes in the right upperfield, the right middle field, the right lower field, the left upper field, the left middle field and the left lower field. He has rhonchi. He has no rales. Lymphadenopathy: He has no cervical adenopathy. Skin: Skin is warm and dry. No rash noted. Nursing note and vitals reviewed. (J20.9) Acute bronchitis, unspecified organism (primary encounter diagnosis) Comment: CXR does not appear to have PNA Plan: azithromycin (ZITHROMAX) 250 MG tablet, albuterol (PROAIR HFA, PROVENTIL HFA, VENTOLIN HFA) 108 (90 BASE) MCG/ACT inhaler (F17.200) Needs smoking cessation education Comment: Plan: (R05) Cough Comment: Plan: XR Chest 2 Views RTC in 2w aSrabjit Tenorio MD documented in this encounter Nursing Notes Fariba Jerry CMA - 01/06/2016 11:53 AM CDT Chief Complaint Patient presents with ??? URI Initial BP 102/78 mmHg Pulse 62 Temp(Src) 98.3 ??F (36.8 ??C) (Oral) Resp 16 Ht 6' 3 (1.905m) Wt 186 lb (84.369 kg) BMI 23.25 kg/m2 SpO2 99% Estimated body mass index is 23.25 kg/(m^2) as calculated from the following: Height as of this encounter: 6' 3 (1.905 m). Weight as of this encounter: 186 lb (84.369 kg). BP completed using cuff size: regular Fariba Jerry CMA documented in this encounter Plan of Treatment [...] documented in this encounter Visit Diagnoses Diagnosis Acute bronchitis, unspecified organism - Primary Needs smoking cessation education Educational circumstance Cough documented in this encounter Care Teams Pump Servicer Supervisor Relationship Specialty Start Date End Date Sarabjit Tenorio MD PCP - General Family Practice 04/18/14 Sarabjit Tenorio MD PCP - Assigned PCP 03/22/14 10/25/18 [address] [address] [id number] Sarabjit Tenorio MD Assigned PCP 03/22/14 05/17/21 [address] [place] HO [id number] documented as of this encounter
--- OUTSIDE RECORDS SUMMARY | 2022-06-20 11:40 | XMS_ITS | Encounter Summary ---
:1950 Author Organization [facility] Address [address] [place] [address] Care Team Providers Name Role Phone Sarabjit Tenorio MD Primary Care Provider [phone] Sarabjit Tenorio MD Unavailable Sarabjit Tenorio MD Unavailable Reason for Visit Reason Comments Pre-Op Exam eye Encounter Details Date Type Department Care Team Description 07/28/2017 Office Visit [facility] Sarabjit Tenorioop gen eral physical exam (Primary Dx); Clinic Luis M Berry MD Senile cataract of right eye, unspecifie d age-related cataract type [place] [address] [facility], [address] [place], [place] [address] [place] [address] (Wo rk) [address] [phone] Social History Tobacco Use Types Packs/Day Years Used Date Smoking Tobacco: Every Day Cigarettes 1 45 Smokeless Tobacco: Never Tobacco Cessation: Ready to Quit: Yes Comments: hand rolled Alcohol Use Standard Drinks/Week Comments Yes 0 (1 standard drink = 0.6 oz pure alcoho l) a few drinks per month Sex Assigned at Date Recorded Not on file documented as of this encounter Last Filed Vital Signs Vital Sign Reading Time Taken Comments Blood Pressure 130/82 07/28/2017 10:18 AM NEW GRAD RN Pulse 58 07/28/2017 10:18 AM NEW GRAD RN Temperature 36.6 ??C (97.8 ??F) 07/28/2017 10:18 AM NEW GRAD RN Respiratory Rate 20 07/28/2017 10:18 AM NEW GRAD RN Oxygen Saturation 99% 07/28/2017 10:18 AM NEW GRAD RN Inhaled Oxygen Concentration - - Weight 79 kg (174 lb 1.6 oz) 07/28/2017 10:18 AM NEW GRAD RN Height - - Body Mass Index 21.76 07/14/2017 7:41 AM NEW GRAD RN documented in this encounter Patient Instructions Patient InstructionsJune Bloom CMA - 07/28/2017 8:28 AM NEW GRAD RN Before Your Surgery ??? Call your surgeon if there is any change in your health. This includes signs of a cold or flu (such as a sore throat, runny nose, cough, rash or fever). ??? Do not smoke, drink alcohol or take over the counter medicine (unless your surgeon or primary care doctor tells you to) for the 24 hours before and after surgery. ??? If you take prescribed drugs: Follow your doctor???s orders about which medicines to take and which to stop until after surgery. ??? Eating and drinking prior to surgery: follow the instructions from your surgeon ??? Take a shower or bath the night before surgery. Use the soap your surgeon gave you to gently clean your skin. If you do not have soap from your surgeon, use your regular soap. Do not shave or scrubthe surgery site. Wear clean pajamas and have clean sheets on your bed. GRAD RN documented in this encounter Progress Notes Sarabjit Tenorio MD - 07/28/2017 8:28 AM CST [address], [address] [facility] [id number] Dept: [phone] PRE-OP EVALUATION: Today's date: 07/28/2017 En Zamora (: 1950) presents for pre-operative evaluation assessment as requested by Dr. Ruddy Singleton. He requires evaluation and anesthesia risk assessment prior to undergoing surgery/procedure for treatment of cataract right eye. Proposed procedure: Cataract removal, right eye Date of Surgery/ Procedure: 08/12/17 Time of Surgery/ Procedure: 1:30 pm Hospital/Surgical Facility: [facility] Fax number for surgical facility: [phone] Primary Physician: Sarabjit Tenorio Type of Anesthesia Anticipated: Local Patient has a Health Care Directive or Living Will: NO 1. NO - Do you have a history of heart attack, stroke, stent, bypass or surgery on an artery in the head, neck, heart or legs? 2. NO - Do you ever have any pain or discomfort in your chest? 3. NO - Do you have a history of Heart Failure? 4. NO - Are you troubled by shortness of breath when: walking on the level, up a slight hill or at night? 5. NO - Do you currently have a cold, bronchitis or other respiratory infection? 6. NO - Do you have a cough, shortness of breath or wheezing? 7. NO - Do you sometimes get pains in the calves of your legs when you walk? 8. NO - Do you or anyone in your family have previous history of blood clots? 9. NO - Do you or does anyone in your family have a serious bleeding problem such as prolonged bleeding following surgeries or cuts? 10. NO - Have you ever had problems with anemia or been told to take iron pills? 11. NO - Have you had any abnormal blood loss such as black, tarry or bloody stools, or abnormal vaginal bleeding? 12. NO - Have you ever had a blood transfusion? 13. NO - Have you or any of your relatives ever had problems with anesthesia? 14. NO - Do you have sleep apnea, excessive snoring or daytime drowsiness? 15. NO - Do you have any prosthetic heart valves? 16. NO - Do you have prosthetic joints? 17. NO - Is there any chance that you may be ? HPI: Brief HPI related to upcoming procedure: Senile cataract - doing R eye, L is not as bad. May addresslater. Feels well, no acute fever, flu/URI symptoms. CP, dyspnea, n/v, change in bowel habits. See problem list for active medical problems. Problems all longstanding and stable, except as noted/documented. See ROS for pertinent symptoms related to these conditions. . MEDICAL HISTORY: Patient Active Problem List Diagnosis Date Noted ??? CRF (chronic renal failure), stage 2 (mild) 07/19/2017 Priority: Medium ??? Tobacco use disorder 04/18/2014 Priority: Medium ??? CARDIOVASCULAR SCREENING; LDL GOAL LESS THAN 130 04/18/2014 Priority: Medium Past Medical History: Diagnosis Date ??? Depressive disorder ??? H/O colonoscopy with polypectomy 2000 pre-cancer polyps Past Surgical History: Procedure Laterality Date ??? COLONOSCOPY N/A 06/08/2014 Procedure: COLONOSCOPY; Surgeon: Jose Lopez MD; Location: [facility] ??? HERNIA REPAIR, INGUINAL RT/LT Current Outpatient Prescriptions Medication Sig Dispense Refill ??? [place]-3 Fatty Acids (FISH OIL OMEGA-3 PO) ? ? varenicline (CHANTIX STARTING MONTH ) 0.5 MG X 11 & 1 MG X 42 tablet Take 0.5 mg tab daily for 3 days, then 0.5 mg tab twice daily for 4 days, then 1 mg twice daily. 53 tablet 0 ??? varenicline (CHANTIX) 1 MG tablet Take 1 tablet (1 mg) by mouth 2 times daily 56 tablet 2 ??? tamsulosin (FLOMAX) 0.4 MG capsule Take 1 capsule (0.4 mg) by mouth daily 30 capsule 1 ??? Aspirin 81 MG TBDP OTC products: None, except as noted above No Known Allergies Latex Allergy: NO Social History Substance Use Topics ??? Smoking status: Current Every Day Smoker Packs/day: 1.00 Years: 45.00 Types: Cigarettes ??? Smokeless tobacco: Never Used Comment: hand rolled ??? Alcohol use 0.0 oz/week Comment: a few drinks per month History Drug Use No REVIEW OF SYSTEMS: C: NEGATIVE for fever, chills, change in weight E/M: NEGATIVE for ear, mouth and throat problems R: NEGATIVE for significant cough or SOB CV: NEGATIVE for chest pain, palpitations or peripheral edema EXAM: BP 130/82 Pulse 58 Temp 97.8 ??F (36.6 ??C) (Oral) Resp 20 Wt 174 lb 1.6 oz (79 kg) SpO2 99% BMI 21.76 kg/m2 GENERAL APPEARANCE: healthy, alert and no distress HENT: ear canals and TM's normal and nose and mouth without ulcers or lesions RESP: lungs clear to auscultation - no rales, rhonchi or wheezes CV: regular rate and rhythm, normal S1 S2, no S3 or S4 and no murmur, click or rub ABDOMEN: soft, nontender, no HSM or masses and bowel sounds normal NEURO: Normal strength and tone, sensory exam grossly normal, mentation intact and speech normal DIAGNOSTICS: No labs or EKG required for low risk surgery (cataract, skin procedure, breast biopsy, etc) Recent Labs Lab Test 07/14/17 0811 04/18/14 0749 HGB -- 15.5 PLT -- 210 NA 137 137 POTASSIUM 4.2 4.5 CR 1.29* 1.29* IMPRESSION: Reason for surgery/procedure: R cataract Diagnosis/reason for consult: preoperaative clearance The proposed surgical procedure is considered LOW risk. REVISED CARDIAC RISK INDEX The patient has the following serious cardiovascular risks for perioperative complications such as (OR, PE, VFib and 3?? AV Block): No serious cardiac risks INTERPRETATION: 0 risks: Class I (very low risk - 0.4% complication rate) The patient has the following additional risks for perioperative complications: No identified additional risks ICD-10-CM 1. Preop general physical exam Z01.818 2. Senile cataract of right eye, unspecified age-related cataract type H25.9 RECOMMENDATIONS: --Patient is to take all scheduled medications on the day of surgery EXCEPT for modifications listedbelow. APPROVAL GIVEN to proceed with proposed procedure, without further diagnostic evaluation Signed Electronically by: Sarabjit Tenorio MD Copy of this evaluation report is provided to requesting physician. [facility] Preop Guidelines GRAD RN documented in this encounter Nursing Notes June Bloom CMA - 07/28/2017 10:00 AM CST Chief Complaint Patient presents with ??? Pre-Op Exam eye Initial BP 130/82 Pulse 58 Temp 97.8 ??F (36.6 ??C) (Oral) Resp 20 Wt 174 lb 1.6 oz (79 kg) SpO2 99% BMI 21.76 kg/m2 Estimated body mass index is 21.76 kg/(m^2) as calculated from the following: Height as of 07/14/17: 6' 3 (1.905 m). Weight as of this encounter: 174 lb 1.6 oz (79 kg). Medication Reconciliation: complete June Bloom CMA (AAMA) GRAD RN documented in this encounter Plan of Treatment Not on filedocumented as of this encounter Visit Diagnoses Diagnosis Preop general physical exam - Primary Other specified pre-operative examinatio n Senile cataract of right eye, unspecifie d age-related cataract type documented in this encounter Care Teams Lab Technician Relationship Specialty Start Date End Date Sarabjit Tenorio MD PCP - General Family Practice 04/18/14 Sarabjit Tenorio MD PCP - Assigned PCP 03/22/14 10/25/18 [address] [address] [id number] Sarabjit Tenorio MD Assigned PCP 03/22/14 05/17/21 [address] [place] HO [id number] documented as of this encounter
[2022-06-20] MEDS: TETANUS/DIPHTH/PERTUSSIS 0.5 ML SYRINGE IM (11:43)
--- NOTE | 2022-06-20 12:04 | ED.NURSE ---
Pt's wound cleansed with hibicleanse and sterile water. Dressed with bacitracin and telfa.
== END 2022-06-20 12:06 | disposition home or self-care (01) ==
PROVIDERS: Emergency Provider Family Medicine; PCP Family Medicine
DX: S01.111A Laceration without foreign body of right eyelid and periocular area, initial encounter (principal); W19.XXXA Unspecified fall, initial encounter
CPT/HCPCS: 12011; 90471; 90715; 99283

== ENCOUNTER 2022-07-02 09:15 | Outpatient (CLI) | payer MEDICARE, SELFPAY ==
--- OUTSIDE RECORDS SUMMARY | 2022-07-02 09:19 | XMS_ITS | Clinical Summary ---
:1950 Author Organization [facility] Address [address] [place] [address] Care Team Providers Name Role Phone Sarabjit Tenorio MD Primary Care Provider [phone] Allergies No known active allergies Medications [...] Addre ss Type Group BCBS BCBS MEDICARE [id number] 2020-Sonny [phone] [address] [address] Medicare ADVANTAGE t 0 [place] [address] Care Teams Pot Sander Relationship Specialty Start Date End Date Sarabjit Tenorio MD PCP - General Family Practice 04/18/14
--- OUTSIDE RECORDS SUMMARY | 2022-07-02 09:19 | XMS_ITS | Encounter Summary ---
:1950 Author Organization [facility] Address [address] [place] [address] Care Team Providers Name Role Phone Sarabjit Tenorio MD Primary Care Provider [phone] Sarabjit Tenorio MD Unavailable Encounter Details Date [...] on filedocumented in this encounter Care Teams Outside Sales Professional Relationship Specialty Start Date End Date Sarabjit Tenorio MD PCP - General Family Practice 04/18/14 Sarabjit Tenorio MD Assigned PCP 03/22/14 05/17/21 [address] [place] [address] documented as of this encounter
--- OUTSIDE RECORDS SUMMARY | 2022-07-02 09:19 | XMS_ITS | Encounter Summary ---
:1950 Author Organization [facility] Address [facility] [place] [address] Care Team Providers Name Role Phone Sarabjit Tenorio MD Primary Care Provider [phone] Sarabjit Tenorio MD Unavailable Reason for Referral Consultation (Routine) - Closed Specialty Diagnoses / Procedures Referred By Contact Refer red To Contact Diagnoses Chronic sinusitis, unspecified location [facility] [address] [facility] [address] [place] [address] [place] [address] Fax: Referral ID Status Reason Start Date Expiration Date Visits Requ ested Visits Authorized [id number] Closed 02/26/2020 02/25/2021 1 1 Reason for Visit Reason Onset Date Comments Referral 02/26/2020 ENT Encounter Details Date Type Department Care Team Description 02/26/[address] [facility] Sarabjit Tenorio, Referral (ENT) Luis M [place] [address] [facility], [address] [place] [address] [place] [address] [phone] Social History Tobacco Use Types Packs/Day Years [...] Name Type Priority Associated Diagnoses Order [facility] OTOL[facility]OLOGY REFERRAL Referral Routine Chronic sinusitis , Ordered: 02/26/2020 unspecified location documented as of this encounter Visit Diagnoses Diagnosis Chronic sinusitis, unspecified location - Primary documented in this encounter Care Teams Airline Lounge Receptionist Relationship Specialty Start Date End Date Sarabjit Tenorio MD PCP - General Family Practice 04/18/14 Sarabjit Tenorio MD Assigned PCP 03/22/14 05/17/21 [address] [place] [address] documented as of this encounter
--- OUTSIDE RECORDS SUMMARY | 2022-07-02 09:19 | XMS_ITS | Encounter Summary ---
:1950 Author Organization [place] Address [address] [facility] [place] [address] Care Team Providers Name Role Phone Sarabjit Tenorio MD Primary Care Provider [phone] Sarabjit Tenorio MD Unavailable Reason for Referral Consultation (Routine) - Closed Specialty Diagnoses / Procedures Referred By Contact Refer red To Contact Consuelo Rodriguez CNP [facility] [address] [place], [place] [address] [address] [place] [address] Phone: Fax: Referral ID Status Reason Start Date Expiration Date Visits Requ ested Visits Authorized [id number] Closed 02/26/2020 02/25/2021 1 1 Reason for Visit Reason Comments Urgent Care no fevers, no SOB, no coughi ng no wheezing, no covid exposure, former ssmoker quit 2 years ago Sinus Problem Sinus issued for a long time , has been using nasal spray, not able to breathe unless though mouth Encounter Details Date Type Department Care Team Description 02/26/2020 Office Visit [facility] Consuelo Rodriguez, Rhinitis medicamentosa Urgent Care Estee reyna CNP (Primary Dx) [address] [place] [address] [phone] Social History Tobacco Use Types Packs/Day Years [...] ??? fluticasone (FLONASE) 50 MCG/ACT nasal spray [place] 1 spray into both nostrils daily for [...] weeks see ENT. Consuelo Rodriguez APRN, CNP [facility] Provider documented in this encounter Plan of Treatment Scheduled Referrals Name Type Priority Associated Diagnoses Order S [facility] OTOLARYNGOLOGY REFERRAL Referral Routine Orde red: 02/26/2020 documented as of this encounter Visit Diagnoses Diagnosis Rhinitis medicamentosa - Primary Other diseases of nasal cavity and sinus es documented in this encounter Care Teams Career Services Manager Relationship Specialty Start Date End Date Sarabjit Tenorio MD PCP - General Family Practice 04/18/14 Sarabjit Tenorio MD Assigned PCP 03/22/14 05/17/21 [address] [place] [address] documented as of this encounter
--- OUTSIDE RECORDS SUMMARY | 2022-07-02 09:20 | XMS_ITS | Encounter Summary ---
:1950 Author Organization [place] Address [address] [place] [address]. [place] [address] Care Team Providers Name Role Phone Sarabjit Tenorio MD Primary Care Provider [phone] Sarabjit Tenorio MD Unavailable Sarabjit Tenorio MD Unavailable Encounter Details Date Type Department Care Team Description 01/06/2016 Radiant Appointment [facility] Sarabjit Tenorio [facility] [place] [address] [facility], [address] [place] [address] [address] [place] [address] [place], [place] [phone] (Wo rk) [address] [phone] Social History Tobacco Use Types Packs/Day Years [...] on filedocumented in this encounter Care Teams Certified Court Interpreter Relationship Specialty Start Date End Date Sarabjit Tenorio MD PCP - General Family Practice 04/18/14 Sarabjit Tenorio MD PCP - Assigned PCP 03/22/14 10/25/18 [address] [place] [address] Sarabjit Tenorio MD Assigned PCP 03/22/14 05/17/21 [address] [place] [id number] documented as of this encounter
--- OUTSIDE RECORDS SUMMARY | 2022-07-02 09:20 | XMS_ITS | Encounter Summary ---
:1950 Author Organization [place] Address [address] [place] [address] Care Team Providers Name Role Phone Sarabjit Tenorio MD Primary Care Provider [phone] Sarabjit Tenorio MD Unavailable Sarabjit Tenorio MD Unavailable Reason for Visit Reason Comments Flu Shot Encounter Details Date Type Department Care Team Description 06/07/2018 Allied Health/Nurse [facility] Flu Shot Visit [place] [address] [facility], [address] [place] [address] Social History Tobacco Use [...] No Form completed by June Bloom CMA ([facility]) documented in this encounter Plan of Treatment Not on filedocumented as of this encounter Visit Diagnoses Diagnosis Need for prophylactic vaccination and in oculation against influenza - Primary documented in this encounter Care Teams Marketing/Sales Person Relationship Specialty Start Date End Date Sarabjit Tenorio MD PCP - General Family Practice 04/18/14 Sarabjit Tenorio MD PCP - Assigned PCP 03/22/14 10/25/18 [address] [place] [id number] Sarabjit Tenorio MD Assigned PCP 03/22/14 05/17/21 [address] [place] [address] documented as of this encounter
--- OUTSIDE RECORDS SUMMARY | 2022-07-02 09:20 | XMS_ITS | Encounter Summary ---
:1950 Author Organization [place] Address [address] [place] [address] Care Team Providers Name Role Phone Sarabjit Tenorio MD Primary Care Provider [phone] Sarabjit Tenorio MD Unavailable Sarabjit Tenorio MD Unavailable Reason for Visit Reason Comments URI Encounter Details Date Type Department Care Team Description 01/06/2016 Office Visit [facility] Sarabjit Tenorio [facility] bro nchitis, unspecified organism (Primary Dx); Clinic Luis M Berry MD Needs smoking cessation education; [address] [place] [address] [facility], [address] [place], [place] [address] [place] [address] (Wo rk) [address] [phone] Social History Tobacco Use Types Packs/Day Years [...] XR Chest 2 Views RTC in 2w Sarabjit Tenorio MD documented in this encounter Nursing [...] Cough documented in this encounter Care Teams Busgirl Relationship Specialty Start Date End Date Sarabjit Tenorio MD PCP - General Family Practice 04/18/14 Sarabjit Tenorio MD PCP - Assigned PCP 03/22/14 10/25/18 [address] [address] [place] [id number] Sarabjit Tenorio MD Assigned PCP 03/22/14 05/17/21 [address] HO [id number] documented as of this encounter
--- OUTSIDE RECORDS SUMMARY | 2022-07-02 09:20 | XMS_ITS | Encounter Summary ---
:1950 Author Organization [place] Address [address] [place] [address] Care Team Providers Name Role Phone Sarabjit Tenorio MD Primary Care Provider [phone] Sarabjit Tenorio MD Unavailable Sarabjit Tenorio MD Unavailable Reason for Visit Reason Comments Pre-Op Exam eye Encounter Details Date Type Department Care Team Description 07/28/2017 Office Visit [facility] Sarabjit Tenorioop gen eral physical exam (Primary Dx); Clinic Luis M Berry MD Senile cataract of right eye, unspecifie d age-related cataract type [place] [address] [address], [address] [place], [place] [address] [place] [address] (Wo rk) [address] [phone] Social History Tobacco Use Types Packs/Day Years [...] Comments Blood Pressure 130/82 07/28/2017 10:18 AM POST OFFICE CLERK Pulse 58 07/28/2017 10:18 AM POST OFFICE CLERK Temperature 36.6 ??C (97.8 ??F) 07/28/2017 10:18 AM POST OFFICE CLERK Respiratory Rate 20 07/28/2017 10:18 AM POST OFFICE CLERK Oxygen Saturation 99% 07/28/2017 10:18 AM POST OFFICE CLERK Inhaled Oxygen Concentration - - Weight 79 kg (174 lb 1.6 oz) 07/28/2017 10:18 AM POST OFFICE CLERK Height - - Body Mass Index 21.76 07/14/2017 7:41 AM POST OFFICE CLERK documented in this encounter Patient Instructions Patient InstructionsJune Bloom CMA - 07/28/2017 8:28 AM POST OFFICE CLERK Before Your Surgery ??? Call your surgeon [...] and have clean sheets on your bed. OFFICE CLERK documented in this encounter Progress Notes Sarabjit eTnorio MD - 07/28/2017 8:28 AM CST [address], [address] [facility] [id number] Dept: [phone] PRE-OP EVALUATION: Today's date: 07/28/2017 En Zamora (: 1950) presents for pre-operative evaluation assessment as requested by Dr. Ruddy Singleton. He requires evaluation and anesthesia risk assessment prior to undergoing surgery/procedure for treatment of cataract right eye. Proposed procedure: Cataract removal, right eye Date of Surgery/ Procedure: 08/12/17 Time of Surgery/ Procedure: 1:30 pm Hospital/Surgical Facility: [facility] Fax number for surgical facility: [phone] Primary Physician: Sarabjit Tenorio Type of Anesthesia [...] Outpatient Prescriptions Medication Sig Dispense Refill ??? Flushing-3 Fatty Acids (FISH OIL OMEGA-3 PO) ? [...] cardiovascular risks for perioperative complications such as (MA, PE, VFib and 3?? AV Block): No [...] evaluation report is provided to requesting physician. [facility] Preop Guidelines OFFICE CLERK documented in this encounter Nursing Notes June [...] Medication Reconciliation: complete June Bloom CMA (AAMA) OFFICE CLERK documented in this encounter Plan of Treatment Not on filedocumented as of this encounter Visit Diagnoses Diagnosis Preop general physical exam - Primary Other specified pre-operative examinatio n Senile cataract of right eye, unspecifie d age-related cataract type documented in this encounter Care Teams Religious Education Coordinator Relationship Specialty Start Date End Date Sarabjit Tenorio MD PCP - General Family Practice 04/18/14 Sarabjit Tenorio MD PCP - Assigned PCP 03/22/14 10/25/18 [address] [address] HO [id number] Sarabjit Tenorio MD Assigned PCP 03/22/14 05/17/21 [address] [address] HO [id number] documented as of this encounter
--- OUTSIDE RECORDS SUMMARY | 2022-07-02 09:20 | XMS_ITS | Encounter Summary ---
:1950 Author Organization [place] Address [facility] [place] [address] Care Team Providers Name Role Phone Sarabjit Tenorio MD Primary Care Provider [phone] Sarabjit Tenorio MD Unavailable Sarabjit Tenorio MD Unavailable Reason for Referral Diagnostic Imaging XR - Closed Specialty Diagnoses / Procedures Referred By Contact Refer red To Contact Diagnoses Flatulence, eructation, and gas pain Sarabjit Tenorio MD Procedures XR Abdomen 1 View [address] [place] [address] Referral ID Status Reason Start Date Expiration Date Visits Requ ested Visits Authorized [id number] Closed 05/16/2018 05/16/2019 1 1 Consultation - Closed Specialty Diagnoses / Procedures Referred By Contact Refer red To Contact Diagnoses Taste absent Sarabjit [place] [address] [facility] [address] [place] [address] [address] [place] [address] Phone: Fax: Referral ID Status Reason Start Date Expiration Date Visits Requ ested Visits Authorized [id number] Closed 05/16/2018 05/16/2019 1 1 - Closed Specialty Diagnoses / Procedures Referred By Contact Refer red To Contact Diagnoses Encounter for immunization Sarabjit Tenorio MD Procedures PNEUMOCOCCAL [place] [address] [place] [address] Referral ID Status Reason Start Date Expiration Date Visits Requ ested Visits Authorized [id number] Closed 05/16/2018 05/16/2019 1 1 Reason for Visit Reason Comments Derm Problem follow up for scabies Encounter Details Date Type Department Care Team Description 05/16/2018 Office Visit [facility] Sarabjit Tenorio Encounter for immunization (Primary Dx); Clinic Luis M Berry MD Taste absent; [place] [address] [address] Abnormal weight gain; Road, [address] [place], [place] Flatulence, eructation, [place] [address] Social History Tobacco Use Types Packs/Day [...] Signature TSH 1.23 0.40 - 4.00 05/17/2018 [facility] mU/L 11:40 AM CDT [facility] Specimen Anatomical Collection Method Collection Time Receive d Time (Source) Location / / Volume Laterality Blood specimen 05/16/2018 9:59 AM 018 (specimen) CDT 10:04 AM CDT Sarabjit Tenorio MD LAB - BLOOD ORDERABLES Performing Organization Address City/State/ZIP Code Phon e Number [facility] [address] [place] [address] documented in this encounter Visit Diagnoses Diagnosis Encounter for immunization - Primary Need for other specified prophylactic va ccination against single bacterial disease Taste absent Disturbances of sensation of smell and t aste Abnormal weight gain Flatulence, eructation, and gas pain Flatulence, eructation, and gas pain documented in this encounter Care Teams Sodium Methylate Operator Relationship Specialty Start Date End Date Sarabjit Tenorio MD PCP - General Family Practice 04/18/14 Sarabjit Tenorio MD PCP - Assigned PCP 03/22/14 10/25/18 [address] [address] [place] [id number] Sarabjit Tenorio MD Assigned PCP 03/22/14 05/17/21 [address] [address] HO [id number] documented as of this encounter
--- OUTSIDE RECORDS SUMMARY | 2022-07-02 09:20 | XMS_ITS | Encounter Summary ---
:1950 Author Organization [place] Address [address] [place] [address] Care Team Providers Name Role Phone Sarabjit Tenorio MD Primary Care Provider [phone] Sarabjit Tenorio MD Unavailable Sarabjit Tenorio MD Unavailable Reason for Visit Reason Onset Date Comments Onboarding 10/03/2014 [facility] ONBOARDED Encounter Details Date Type Department Care Team Description 10/03/2014 Telephone [facility] Sarabjit Tenorio Onboardin g ([facility] Luis M Berry MD CHOICES - MEMBER [address] [place] [address], [address] [place] [address] ONBOARDED) [address] [place] [address] [place], [place] [phone] (Wo rk) [address] [phone] Social History Tobacco Use Types Packs/Day Years [...] on filedocumented in this encounter Care Teams Boom Operator Relationship Specialty Start Date End Date Sarabjit Tenorio MD PCP - General Family Practice 04/18/14 Sarabjit Tneorio MD PCP - Assigned PCP 03/22/14 10/25/18 [address] [place] [address] Sarabjit Tenorio MD Assigned PCP 03/22/14 05/17/21 [address] [place] [address] documented as of this encounter
--- OUTSIDE RECORDS SUMMARY | 2022-07-02 09:20 | XMS_ITS | Encounter Summary ---
:1950 Author Organization [place] Address [facility] [place] [place] [address] Care Team Providers Name Role Phone Sarabjit Tenorio MD Primary Care Provider [phone] Sarabjit Tenorio MD Unavailable Sarabjit Tenorio MD Unavailable Reason for Visit Diagnostic Imaging XR - Closed Specialty Diagnoses / Procedures Referred By Contact Refer red To Contact Diagnoses Flatulence, eructation, and gas pain Sarabjit Tenorio MD Procedures XR Abdomen 1 View [address] [place] [address] Referral ID Status Reason Start Date Expiration Date Visits Requ ested Visits Authorized [id number] Closed 05/16/2018 05/16/2019 1 1 Encounter Details Date Type Department Care Team Description 05/16/2018 Radiant Appointment [facility] Sarabjit Tenorio atulence, Clinic Luis M Berry MD eructation, and gas [address] [place] [address] [facility], [address] [place] [address] [phone] Social History Tobacco Use Types Packs/Day Years [...] pain documented in this encounter Care Teams Television News Reporter Relationship Specialty Start Date End Date Sarabjit Tenorio MD PCP - General Family Practice 04/18/14 Sarabjit Tenorio MD PCP - Assigned PCP 03/22/14 10/25/18 [address] [place] [address] Sarabjit Tenorio MD Assigned PCP 03/22/14 05/17/21 [address] [place] [address] documented as of this encounter
--- OUTSIDE RECORDS SUMMARY | 2022-07-02 09:20 | XMS_ITS | Encounter Summary ---
:1950 Author Organization [place] Address [address] [facility] [place] [address] Care Team Providers Name Role Phone Sarabjit Tenorio MD Primary Care Provider [phone] Sarabjit Tenorio MD Unavailable Sarabjit Tenorio MD Unavailable Reason for Visit Reason Comments Derm Problem rash on feet and legs Mouth Problem greatest concern today; meta llic taste in mouth Abdominal Pain bloating and discomfort Encounter Details Date Type Department Care Team Description 04/13/2018 Office Visit [facility] Sarabjit Tenorio Dysgeusia (Primary Dx); Clinic Luis M Berry MD Scabies; [place] [address] Flatulence, eructation, and gas pain; Road, [address] [place] [address] CRF (chronic renal failure), stage 2 (id ld) [place], [place] [phone] (Wo rk) [address] [phone] Social History Tobacco Use Types Packs/Day Years [...] If large areas of your skin are affected,??oxir-nga-qycjdjc antihistamines??may be used to reduce itching. Or [...] your provider Date Last Reviewed: 03/23/2016 ?? [phone] [employer]. [address] [place] [address]. All rights reserved. This information is not [...] gum disease. Seeing Dr. Simone Pond, [place] ?? Previous history of similar problem: None [...] 11.0 04/13/2018 [facility] 10e9/L 9:05 AM CDT [facility] RBC Count 4.63 4.4 - 5.9 04/13/2018 [facility] 10e12/L 9:05 AM CDT [facility] Hemoglobin 14.6 13.3 - 04/13/2018 [facility] 17.7 g/dL 9:05 AM CDT [facility] Hematocrit 42.4 40.0 - 04/13/2018 [facility] 53.0 % 9:05 AM CDT [facility] MCV 92 78 - 100 04/13/2018 [facility] fl 9:05 AM CDT [facility] MCH 31.5 26.5 - 04/13/2018 [facility] 33.0 pg 9:05 AM CDT [facility] MCHC 34.4 31.5 - 04/13/2018 [facility] 36.5 g/dL 9:05 AM CDT [facility] RDW 12.0 10.0 - 04/13/2018 [facility] 15.0 % 9:05 AM CDT [facility] Platelet Count 213 150 - 450 04/13/2018 [facility] 10e9/L 9:05 AM CDT [facility] Specimen Anatomical Collection Method Collection Time Receive d Time (Source) Location / / Volume Laterality Blood specimen 04/13/2018 8:26 AM 018 8:31 (specimen) CDT AM CDT Sarabjit Tenorio MD LAB - BLOOD ORDERABLES Performing Organization Address City/State/ZIP Code Phon e Number [facility] [address] (ABNORMAL) Comprehensive metabolic panel (04/13/2018 8:26 AM CDT) [facility] gist Method Time Signature Sodium 136 133 - 144 04/13/2018 [facility] mmol/L 5:39 PM CDT [facility] Potassium 4.1 3.4 - 5.3 04/13/2018 [facility] mmol/L 5:39 PM CDT [facility] Chloride 104 94 - 109 04/13/2018 [facility] mmol/L 5:39 PM CDT [facility] Carbon Dioxide 26 20 - 32 04/13/2018 [facility] mmol/L 5:39 PM CDT [facility] Anion Gap 6 3 - 14 04/13/2018 [facility] mmol/L 5:39 PM CDT [facility] Glucose 102 (H) 70 - 99 04/13/2018 [facility] mg/dL 5:39 PM CDT [facility] Urea Nitrogen 15 7 - 30 04/13/2018 [facility] mg/dL 5:39 PM CDT [facility] Creatinine 1.32 (H) 0.66 - 04/13/2018 [facility] 1.25 5:39 PM CDT CLINICS mg/dL [facility] GFR Estimate 54 (L) >60 04/13/2018 [facility] mL/min/1. 5:39 PM CDT [facility]INICS 7m2 [facility] Comment: Non GFR Calc GFR Estimate If 66 >60 mL/min/1.7m2 04/13/2018 5:39 P [facility] Black T [facility] Comment: GFR Calc Calcium 8.9 8.5 - 10.1 04/13/2018 5:39 PM [facility] mg/dL T [facility] Bilirubin Total 0.6 0.2 - 1.3 mg/dL 04/13/2018 5:39 PM [facility] Albumin 4.0 3.4 - 5.0 g/dL 04/13/2018 5:39 PM [facility] Protein Total 7.1 6.8 - 8.8 g/dL 04/13/2018 5:39 PM [facility] Alkaline Phosphatase 83 40 - 150 U/L 04/13/2018 5:39 PM [facility] ALT 23 0 - 70 U/L 04/13/2018 5:39 PM [facility] T [facility] AST 19 0 - 45 U/L 04/13/2018 5:39 PM [facility] Specimen Anatomical Collection Method Collection Time Receive d Time (Source) Location / / Volume Laterality Blood specimen 04/13/2018 8:26 AM 018 8:31 (specimen) CDT AM CDT Sarabjit Tenorio MD LAB - BLOOD ORDERABLES Performing Organization Address City/State/ZIP Code Phon e Number [facility] [address] [place] [address] documented in this encounter Visit Diagnoses Diagnosis Dysgeusia - Primary Disturbances of sensation of smell and t aste Scabies Flatulence, eructation, and gas pain CRF (chronic renal failure), stage 2 (mi ld) documented in this encounter Care Teams Court Magistrate Relationship Specialty Start Date End Date Sarabjit Tenorio MD PCP - General Family Practice 04/18/14 Sarabjit Tenorio MD PCP - Assigned PCP 03/22/14 10/25/18 [address] [address] [place] [id number] Sarabjit Tenorio MD Assigned PCP 03/22/14 05/17/21 [address] [address] HO [id number] documented as of this encounter
--- OUTSIDE RECORDS SUMMARY | 2022-07-02 09:20 | XMS_ITS | Encounter Summary ---
:1950 Author Organization [facility] Address [address] [place] [address] Care Team Providers Name Role Phone Sarabjit Tenorio MD Primary Care Provider [phone] Sarabjit Tenorio MD Unavailable Sarabjit Tenorio MD Unavailable Reason for Visit Reason Comments Physical fasting Encounter Details Date Type Department Care Team Description 07/14/2017 Office Visit [facility] Sarabjit Tenorio eneral medical examination at a health care facility (Primary Dx); Clinic Luis M Berry MD Need for hepatitis C screening test; [place] [address] [address] Tobacco use disorder; Road, [address] [place] [address] [place], [place] [phone] (Wo rk) [address] [phone] Social History Tobacco Use Types Packs/Day Years [...] Comments Blood Pressure 106/74 07/14/2017 7:41 AM RECORDS SPECIALIST Pulse 78 07/14/2017 7:41 AM RECORDS SPECIALIST Temperature 36.7 ??C (98.1 ??F) 07/14/2017 7:41 AM RECORDS SPECIALIST Respiratory Rate 16 07/14/2017 7:41 AM RECORDS SPECIALIST Oxygen Saturation - - Inhaled Oxygen Concentration - - Weight 78.3 kg (172 lb 11.2 oz) 07/14/2017 7:41 AM RECORDS SPECIALIST Height 190.5 cm (6' 3) 07/14/2017 7:41 AM RECORDS SPECIALIST Body Mass Index 21.59 07/14/2017 7:41 AM RECORDS SPECIALIST documented in this encounter Patient Instructions Patient InstructionsJune Bloom CMA - 07/14/2017 7:20 AM RECORDS SPECIALIST Preventive Health Recommendations Male Ages 50 - [...] eye doctor every 1 to 2 years. RDS SPECIALIST documented in this encounter Progress Notes Sarabjit [...] Preventive Guidelines Dietary Guidelines for Americans, 2009 [employer] My[employer]ate ASA Prophylaxis Lung CA Screening Sarabjit Tenorio MD [facility] RDS SPECIALIST documented in this encounter Nursing Notes June [...] Medication Reconciliation: complete June Bloom CMA (AAMA) RDS SPECIALIST documented in this encounter Plan of Treatment Not on filedocumented as of this encounter Procedures Procedure Name Priority Date/Time Associated Diagnosis Comme nts HEPATITIS C SCREEN Routine 07/14/2017 8:11 AM Need for hepatit is C Results for this REFLEX TO HCV RNA RECORDS SPECIALIST screening test procedur e are in QUANT AND GENOTYPE the resul ts section. PROSTATE SPECIFIC Routine 07/14/2017 8:11 AM Routine general R esults for this ANTIGEN SCREEN RECORDS SPECIALIST medical examination proced ure are in at a health care the results facility section. LIPID REFLEX TO Routine 07/14/2017 8:11 AM Routine general Res ults for this DIRECT LDL PANEL RECORDS SPECIALIST medical examination proc edure are in at a health care the results facility section. BASIC METABOLIC Routine 07/14/2017 8:11 AM Routine general Res ults for this PANEL RECORDS SPECIALIST medical examination procedur e are in at a [facility] care the results facility section. documented in this encounter Results PSA, screen (07/14/2017 8:11 AM RECORDS SPECIALIST) athologist Signature PSA 0.99 0 - 4 ug/L 07/15/2017 [place] 5:24 PM [facility] Comment: Assay Method: Chemiluminescence using Siemens Deepwater analyzer Specimen Anatomical Collection Method Collection Time Receive d Time (Source) Location / / Volume Laterality Blood specimen 07/14/2017 8:11 AM 017 8:16 (specimen) RECORDS SPECIALIST AM RECORDS SPECIALIST Sarabjit Tenorio MD LAB - BLOOD ORDERABLES Performing Organization Address City/State/ZIP Code Phon e Number M [facility] [address] [address] [facility] [address] [address], [place] [phone] (ABNORMAL) Basic metabolic panel (07/14/2017 8:11 AM RECORDS SPECIALIST) athologist Signature Sodium 137 133 - 144 07/15/2017 [place] mmol/L 5:15 PM RECORDS SPECIALIST [facility] Potassium 4.2 3.4 - 5.3 07/15/2017 [place] mmol/L 5:15 PM RECORDS SPECIALIST [facility] Chloride 105 94 - 109 07/15/2017 [place] mmol/L 5:15 PM RECORDS SPECIALIST [facility] Carbon Dioxide 18 (L) 20 - 32 07/15/2017 [place] mmol/L 5:15 PM [facility] Anion Gap 14 3 - 14 07/15/2017 [place] mmol/L 5:15 PM [facility] Glucose 92 70 - 99 07/15/2017 [place] mg/dL 5:15 PM [facility] Comment: Fasting specimen Urea Nitrogen 15 7 - 30 mg/dL 07/15/2017 5:[address] [facility] Creatinine 1.29 (H) 0.66 - 1.25 07/15/2017 5:15 PM [facility] mg/dL [facility] GFR Estimate 56 (L) >60 mL/min/1.7m2 07/15/2017 5:[address] [facility] Comment: Non GFR Calc GFR Estimate If 68 >60 mL/min/1.7m2 07/15/2017 5:15 P [facility] Black [facility] Comment: GFR Calc Calcium 9.7 8.5 - 10.1 mg/dL 07/15/2017 5:15 PM [facility] Specimen Anatomical Collection Method Collection Time Receive d Time (Source) Location / / Volume Laterality Blood specimen 07/14/2017 8:11 AM 017 8:16 (specimen) RECORDS SPECIALIST AM [facility] Sarabjit Tenorio MD LAB - BLOOD ORDERABLES Performing Organization Address City/State/ZIP Code Phon e Number [facility] [address] [place] [address] (ABNORMAL) Lipid panel reflex to direct LDL Fasting (07/14/2017 8:11 AM RECORDS SPECIALIST) athologist Signature Cholesterol 213 (H) <200 mg/dL 07/15/2017 [facility] 5:15 PM [facility] Comment: Desirable: <200 mg/dl Triglycerides 92 <150 mg/dL 07/15/2017 5:15 PM [facility] Comment: Fasting specimen HDL Cholesterol 79 >39 mg/dL 07/15/2017 5:[address] [facility] LDL Cholesterol 116 (H) <100 mg/dL 07/15/2017 5:15 PM [facility] Calculated [facility] Comment: Above desirable: ??100-129 mg/dl Borderline High: ??130-159 mg/dL High: ? 160-189 mg/dL Very high: ? >189 mg/dl Non HDL Cholesterol 134 (H) <130 mg/dL 07/15/2017 5:15 PM [facility] Comment: Above Desirable: ??130-159 mg/dl Borderline high: ??160-189 mg/dl High: ? 190-219 mg/dl Very high: ? >219 mg/dl Specimen Anatomical Collection Method Collection Time Receive d Time (Source) Location / / Volume Laterality Blood specimen 07/14/2017 8:11 AM 017 8:16 (specimen) RECORDS SPECIALIST AM RECORDS SPECIALIST Sarabjit Tenorio MD LAB - BLOOD ORDERABLES Performing Organization Address City/[facility]/ZIP Code Phon e Number [facility] [address] [place] [address] Hepatitis C Screen Reflex to HCV RNA Quant and Genotype (07/14/2017 8:11 AM RECORDS SPECIALIST) [facility] gist Method Time Signature Hepatitis C Nonreactive NR^Nonrea 07/16/2017 [facility] ctive 10:35 AM [facility] Comment: Assay performance characteristics have n ot been established for newborns, infants, and children Specimen Anatomical Collection Method Collection Time Receive d Time (Source) Location / / Volume Laterality Blood specimen 07/14/2017 8:11 AM 017 8:16 (specimen) RECORDS SPECIALIST AM RECORDS SPECIALIST Sarabjit Tenorio MD LAB - BLOOD ORDERABLES Performing Organization Address City/State/ZIP Code Phon e Number [facility] [address] [place] [address] [facility] documented in this encounter Visit Diagnoses Diagnosis Routine general medical examination at a health care facility - Primary Need for hepatitis C screening test Special screening examination for other specified viral diseases Tobacco use disorder Nocturia documented in this encounter Care Teams Flexible Babysitter Relationship Specialty Start Date End Date Sarabjit Tenorio MD PCP - General Family Practice 04/18/14 Sarabjit Tenorio MD PCP - Assigned PCP 7/31/14 3/5/19 [address] [place] [address] Sarabjit Tenorio MD Assigned PCP 03/22/14 05/17/21 [address] [address] documented as of this encounter
--- OUTSIDE RECORDS SUMMARY | 2022-07-02 09:20 | XMS_ITS | Encounter Summary ---
:1950 Author Organization [facility] Address [address] [place] [address] Care Team Providers Name Role Phone Sarabjit Tenorio MD Primary Care Provider [phone] Sarabjit Tenorio MD Unavailable Reason for Visit Reason Onset Date Comments Panel Management 04/04/2019 wellness visit Encounter Details Date Type Department Care Team Description 04/04/[address] [facility] Sarabjit Tenorio Panel [facility] Luis M Berry MD (wellness visit) [address] [place] [address], [address] [place] [address] [address] [place] [address] [place], [place] [phone] (Wo rk) [address] [phone] Social History Tobacco Use Types Packs/Day Years [...] this encounter Miscellaneous Notes Telephone Encounter - Shivani Peter CMA - 04/11/2019 10:56 AM CDT Spoke with pt he will call back to schedule. Telephone Encounter - Shivani Peter CMA - 04/04/2019 11:11 AM CDT Panel Management Review Patient has the following on his problem list: None Composite cancer screening Chart review shows that this patient is due/due soon for the following None Summary: Patient is due/failing the following: PHYSICAL Action needed: Patient needs office visit for annual wellness visit. Type of outreach: Sent [email or web address] message. Questions for provider review: None Shivani Peter Chart routed to Care Team . documented in this encounter Plan of Treatment Not on filedocumented as of this encounter Visit Diagnoses Not on filedocumented in this encounter Care Teams Cap And Stud Machine Operator Relationship Specialty Start Date End Date Sarabjit Tenorio MD PCP - General Family Practice 04/18/14 Sarabjit Tenorio MD Assigned PCP 03/22/14 05/17/21 [address] [place] [address] documented as of this encounter
--- OUTSIDE RECORDS SUMMARY | 2022-07-02 09:21 | XMS_ITS | Encounter Summary ---
:1950 Author Organization [place] [facility] Address [facility] [place] [address] Care Team Providers Name Role Phone Sarabjit Peterson MD Primary Care Provider [phone] Sarabjit Peterson MD Unavailable Sarabjit Peterson MD Unavailable Reason for Visit Auth/Cert - Closed Specialty Diagnoses / Procedures Referred By Contact Refer red To Contact Gastroenterology Diagnoses SCREENING Endoscopy Procedures COLONOSCOPY [address] [place] [address] Phone: Fax: Referral ID Status Reason Start Date Expiration Date Visits Requ ested Visits Authorized [id number] Closed 1 1 Encounter Details Date Type Department Care Team Description 06/08/2014 Surgery [facility] Jose King MD COLONOSCOPY [place] [facility] [address] [facility] [address] [place] [address] [place] [address] (Wo rk) Surgery Details Date/Time Status Location [...] encounter Results COLONOSCOPY (06/08/2014 7:22 AM CDT) [facility] Method Time Signature COLONOSCOPY [facility] RAD IOLOGY RESULTS Patient Name: En Zamora ?Procedure Date: 06/08/2014 7:22 AM ? Accou nt Number: [id number] Date of : 1950 ? Admit Type: [...] ?oxygen saturations were monitored continuously. The ?PCF-H190L [id number] was introduced through the anus ?and advanced [...] history of colonic polyps CPT copyright 2013 [employer]. All rights reserved. The codes documented in this report are prelimin beverly and upon fruit room hand review may be revised to meet current compliance requirements. Electronically signed by Jose Lopez MD Jose Lopez MD 06/08/2014 7:48 AM I was physically present for the entire viewing portion of t he exam. Number of Addenda: 0 Note Initiated On: 06/08/2014 7:22 AM MRN: ?[id number] Procedure Date: ? 06/08/2014 7:22:44 AM Scope [...] Pre-procedure documented in this encounter Care Teams Inspector Type Relationship Specialty Start Date End Date Sarabjit Peterson MD PCP - General Family Practice 04/18/14 Sarabjit Peterson MD PCP - Assigned PCP 03/22/14 10/25/18 [address] [place] [id number] Sarabjit Peterson MD Assigned PCP 03/22/14 05/17/21 [address] [place] [address] documented as of this encounter
--- OUTSIDE RECORDS SUMMARY | 2022-07-02 09:21 | XMS_ITS | Encounter Summary ---
:1950 Author Organization [facility] Address [address] [place] [address] Care Team Providers Name Role Phone Unavailable Primary Care Provider Unavailable Encounter Details Date Type Department Care Team Description 09/12/2003 Operative Report Karolyn Londono MD (Skin Specialist) [place] [address] (Wo rk) Social History Tobacco Use Types Packs/Day Years Used Date Smoking Tobacco: Never Assessed Sex Assigned at Date Recorded Not on file documented as of this encounter Miscellaneous Notes Op Note - Karolyn Londono - 09/12/2003 12:00 AM HOSPITAL PHARMACY TECHNICIAN : 54 1st ASS'T: 2nd ASS'T: PRE-OPERATIVE [...] usual. [id number] KAROLYN LONDONO MD MT: Document: [id number] [place], [place] Name: EN ZAMORA LCN: ENDO DSC: 09/12/2003 [place], [place] Name: MR#: : Procedure Date: EN ZAMORA -14 1950 09/12/2003 Doctor: KAROLYN LONDONO MD OPERATIVE REPORT Page 1 of 2 ITAL PHARMACY TECHNICIAN documented in this encounter Plan of Treatment Not on filedocumented as of this encounter Visit Diagnoses Not on filedocumented in this encounter
--- OUTSIDE RECORDS SUMMARY | 2022-07-02 09:21 | XMS_ITS | Encounter Summary ---
:1950 Author Organization [facility] Address [address] [facility] [facility] [place] [place] [address] Care Team Providers Name Role Phone Sarabjit Peterson MD Primary Care Provider [phone] Sarabjit Peterson MD Unavailable Sarabjit Peterson MD Unavailable Reason for Visit Auth/Cert - Closed Specialty Diagnoses / Procedures Referred By Contact Refer red To Contact Gastroenterology Diagnoses SCREENING Rh Endoscopy Procedures COLONOSCOPY [address] [place] [address] Phone: Fax: Referral ID Status Reason Start Date Expiration Date Visits Requ ested Visits Authorized [id number] Closed 1 1 Encounter Details Date Type Department Care Team Description 06/08/2014 Hospital Encounter [facility] Jose Lopez , Endoscopy Thi [place] [address] [place], [place] GASTROINTESTINAL [address] [facility] [phone] [place], [place] [address] (Wo rk) Social History Tobacco Use Types [...] encounter Results COLONOSCOPY (06/08/2014 7:22 AM CDT) [facility] Method Time Signature COLONOSCOPY [facility] RAD IOLOGY RESULTS Patient Name: En Zamora ?Procedure Date: 06/08/2014 7:22 AM ? Accou nt Number: [id number] Date of : 1950 ? Admit Type: [...] ?oxygen saturations were monitored continuously. The ?PCF-H190L [id number] was introduced through the anus ?and advanced [...] history of colonic polyps CPT copyright 2013 [employer]. All rights reserved. The codes documented in this report are prelimin beverly and upon supervisor trust accounts review may be revised to meet current compliance requirements. Electronically signed by Jose Lopez MD Jose Lopez MD 06/08/2014 7:48 AM I was physically present for the entire viewing portion of t he exam. Number of Addenda: 0 Note Initiated On: 06/08/2014 7:22 AM MRN: ?[id number] Procedure Date: ? 06/08/2014 7:22:44 AM Scope [...] Pre-procedure documented in this encounter Care Teams Hand Binder Stripper Relationship Specialty Start Date End Date Sarabjit Peterson MD PCP - General Family Practice 04/18/14 Sarabjit Peterson MD PCP - Assigned PCP 03/22/14 10/25/18 [address] [place] [id number] Sarabjit Peterson MD Assigned PCP 03/22/14 05/17/21 [address] [place] [address] documented as of this encounter
--- OUTSIDE RECORDS SUMMARY | 2022-07-02 09:21 | XMS_ITS | Clinical Summary ---
:1950 Author Organization [facility] [place] [address] Care Team Providers Name Role Phone Sarabjit [...] Comments Blood Pressure 131/78 07/31/2019 4:58 PM DEVOPS DEVELOPER Pulse 74 07/31/2019 4:58 PM DEVOPS DEVELOPER Temperature 36.4 ??C (97.5 ??F) 08/12/2017 11:44 AM DEVOPS DEVELOPER Respiratory Rate 16 08/12/2017 2:02 PM DEVOPS DEVELOPER Oxygen Saturation 98% 08/12/2017 2:02 PM DEVOPS DEVELOPER Inhaled Oxygen Concentration - - Weight 78.9 kg (174 lb) 08/12/2017 11:44 AM DEVOPS DEVELOPER Height 192 cm (6' 3.6) 08/12/2017 11:44 AM DEVOPS DEVELOPER Body Mass Index 21.4 08/12/2017 11:44 AM DEVOPS DEVELOPER Plan of Treatment Health Maintenance Due Date [...] 65+ 04/23/2022 Medical Devices Implanted Type Area Cork Painter And Grader Device Shelf Model / Serial Identifier Expiration / Lot Date Iol Divide +22.5 Acrysof Iq [id number] - [id number] Right: Al con 08/22/2021 [id number]# / Implanted: Qty: 1 on 08/12/2017 by Ruddy Chan MD at [facility] Eye Lucky [facility] [id number] / Results Not on filefrom Last 3 Months Insurance Payer Benefit Plan / Subscriber ID Effective Dates Phone Addre ss Type Group MEDICARE PART B MEDICARE PART B [id number] 2017-Prese ATTN: CLAIMS - HB USE ONLY HB ONLY nt [address] [facility] [address] BLUE CROSS MR BLUE CROSS [id number] 2018-Presen [address] MEDIC[place] [id number] BLUE CROSS BLUE CROSS [id number] 2017-[place] [address] [address] [place], [place] [id number] Advance Directives Latest Code Status on File Code Status Date Activated Date Inactivated Comments Full Code 08/12/2017 11:40 AM 08/12/2017 4:16 PM Care Teams Wildlife Conservation Officer Relationship Specialty Start Date End Date Sarabjit Tenorio MD PCP - General 06/14/17
--- OUTSIDE RECORDS SUMMARY | 2022-07-02 09:21 | XMS_ITS | Encounter Summary ---
:1950 Author Organization [place] Address [address] [facility] [place] [address] Care Team Providers Name Role Phone Sarabjit Tenorio MD Primary Care Provider [phone] Sarabjit Tenorio MD Unavailable Sarabjit Tenorio MD Unavailable Reason for Referral Diagnostic Procedure Outpatient - Closed Specialty Diagnoses / Procedures Referred By Contact Refer red To Contact Diagnoses Colon cancer screening Sarabjit Tenorio M [facility] [address] [place] [address] [place] [address] Phone: Fax: Referral ID Status Reason Start Date Expiration Date Visits Requ ested Visits Authorized [id number] Closed 04/18/2014 10/15/2014 1 1 Reason for Visit Reason Comments Physical Blood Draw patient IS fasting Encounter Details Date Type Department Care Team Description 04/18/2014 Office Visit [facility] Sarabjit Tenorio g eneral medical examination at a health care facility (Primary Dx); Clinic Luis M Berry MD Colon cancer screening; [place] [address] Need for Tdap vaccination; Road, [address] [place] [address] Benign neoplasm of skin of trunk, except scrotum [place] [phone] (Wo rk) [address] [phone] Social History Tobacco Use Types Packs/Day Years [...] HDL, LDL, TRIG, CHOLHDLRATIO, in the last 41245 hours Reviewed orders with patient. Reviewed health maintenance and updated orders accordingly - Yes All Histories reviewed and updated in [facility]. Overdue for colonoscopy - did have polyps [...] list, Allergies, and Medical/Social/Surgical histories reviewed in [facility] andupdated as appropriate. OBJECTIVE: There were no [...] Preventive Guidelines Dietary Guidelines for Americans, 2010 [employer] regular exercise healthy diet/nutrition has no tobacco history on file. Tobacco Cessation Action Plan: Information offered: Patient not interested at this time There is no height or weight on file to calculate BMI. Sarabjit Tenorio MD [facility] documented in this encounter Nursing Notes Awilda [...] Name Type Priority Associated Diagnoses Order S [facility] GASTROENTEROLOGY ADULT Referral Routine Colon cancer [...] athologist Signature WBC 8.1 4.0 - 11.0 [facility] 10e9/L [facility] RBC Count 4.80 4.4 - 5.9 [facility] 10e12/L [facility] Hemoglobin 15.5 13.3 - [facility] 17.7 g/dL [facility] Hematocrit 45.0 40.0 - [facility] 53.0 % [facility] MCV 94 78 - 100 [facility] fl [facility] MCH 32.3 26.5 - [facility] 33.0 pg [facility] MCHC 34.4 31.5 - [facility] 36.5 g/dL [facility] RDW 12.2 10.0 - [facility] 15.0 % [facility] Platelet Count 210 150 - 450 [facility] 10e9/L [facility] Specimen Anatomical Collection Method Collection Time Receive d Time (Source) Location / / Volume Laterality Blood specimen 04/18/2014 7:49 AM 014 7:54 (specimen) CDT AM CDT Sarabjit Tenorio MD LAB - BLOOD ORDERABLES Performing Organization Address City/State/ZIP Code Phon e Number [facility] [address] [place] [address] (ABNORMAL) Lipid panel reflex to direct LDL (04/18/2014 7:49 AM CDT) athologist Signature Cholesterol 215 (H) <200 mg/dL [facility] Comment: LDL Cholesterol is the primary guide to therapy. The NCEP recommends further evaluation of: patients with cholesterol greater than 200 mg/dL if additional risk facto rs are present, cholesterol greater than 240 mg/dL, triglycerides greater than 1 50 mg/dL, or HDL less than 40 mg/dL. Triglycerides 120 0 - 150 mg/dL [facility] CLI NICS [place] HDL Cholesterol 67 >40 mg/dL [facility] CLIN[facility] CS [place] LDL Cholesterol Calculated 124 0 - 129 mg/dL [facility] Comment: LDL Cholesterol is the primary guide to therapy: LDL-cholesterol goal in high risk patients is <100 mg/dL and in very high risk patients is <70 mg/dL. VLDL-Cholesterol 24 0 - 30 mg/dL [facility] Cholesterol/HDL Ratio 3.2 0.0 - 5.0 [facility] Specimen Anatomical Collection Method Collection Time Receive d Time (Source) Location / / Volume Laterality Blood specimen 04/18/2014 7:49 AM 014 7:54 (specimen) CDT AM CDT Sarabjit Tenorio MD LAB - BLOOD ORDERABLES Performing Organization Address City/State/ZIP Code Phon e Number [facility] [address] [place] [address] [facility] [address] [place] [address] (ABNORMAL) Comprehensive metabolic panel (04/18/2014 7:49 AM CDT) athologist Signature Sodium 137 133 - 144 [facility] mmol/L [place] Potassium 4.5 3.4 - 5.3 [facility] mmol/L [place] Chloride 105 94 - 109 [facility] mmol/L [place] Carbon Dioxide 28 20 - 32 [facility] S mmol/L [place] Anion Gap 4 (L) 6 - 17 [facility] mmol/L [place] Glucose 96 70 - 99 [facility] mg/dL [place] Comment: Effective 03/21/2014, the reference range for this assay has changed to reflect new instrumentation/methodology. Urea Nitrogen 14 7 - 30 mg/dL [facility] [place] Comment: Effective 03/21/2014, the reference range for this assay has changed to reflect new instrumentation/methodology. Creatinine 1.29 (H) 0.66 - 1.25 mg/dL [facility] GFR Estimate 57 (L) >60 mL/min/1.7m2 [facility] Comment: Non GFR Calc GFR Estimate If Black 68 >60 mL/min/1.7m2 F [facility] Comment: GFR Calc Calcium 9.4 8.5 - 10.1 mg/dL [facility] [place] Comment: Effective 03/21/2014, the reference range for this assay has changed to reflect new instrumentation/methodology. Bilirubin Total 0.6 0.2 - 1.3 mg/dL [facility] Albumin 4.0 3.3 - 4.9 g/dL [facility] S [place] Protein Total 7.1 6.8 - 8.8 g/dL [facility] [place] Alkaline Phosphatase 81 40 - 150 U/L [facility] ALT 23 0 - 70 U/L [facility] AST 16 0 - 45 U/L [facility] Specimen Anatomical Collection Method Collection Time Receive d Time (Source) Location / / Volume Laterality Blood specimen 04/18/2014 7:49 AM 014 7:54 (specimen) CDT AM CDT Sarabjit Tenorio MD LAB - BLOOD ORDERABLES Performing Organization Address City/State/ZIP Code Phon e Number [facility] [place] [address], [place] [address] [facility] [address] [place], [place] [address] documented in this encounter Visit Diagnoses Diagnosis Routine general medical examination at a health care facility - Primary Colon cancer screening Special screening for malignant neoplasm s, colon Need for Tdap vaccination Need for prophylactic vaccination with c ombined [id number]-[id number] (DTP) vaccine Benign neoplasm of skin of trunk, except scrotum documented in this encounter Care Teams Paste Mixing Supervisor Relationship Specialty Start Date End Date Sarabjit Tenorio MD PCP - General Family Practice 04/18/14 Sarabjit Tenorio MD PCP - Assigned PCP 03/22/14 10/25/18 [address] [address] [place] [id number] Sarabjit Tenorio MD Assigned PCP 03/22/14 05/17/21 [address] [place] [address] documented as of this encounter
[2022-07-02 14:08] LABS: Chloride* 100 mmol/L (96-114); Potassium* 5.3 mmol/L (3.6-5.1); Sodium* 134 mmol/L (135-149)
[2022-07-02 14:11] LABS: Blood Urea Nitrogen* 20 mg/dL (7-30); Carbon Dioxide* 24 mmol/L (20-32); Creatinine* 1.7 mg/dL (0.5-1.5); Estimated Glomerular Filt Rate 43 ml/min; Glucose* 101 mg/dL (60-115)
[2022-07-02 14:12] LABS: Calcium* 9.7 mg/dL (8.4-10.6); Magnesium* 2.1 mg/dL (1.5-2.6)
== END 2022-07-02 09:16 | disposition home or self-care (01) ==
PROVIDERS: PCP Family Medicine; Visit Provider Family Medicine
DX: K12.2 Cellulitis and abscess of mouth (principal); M62.838 Other muscle spasm; I10 Essential (primary) hypertension; L70.0 Acne vulgaris
CPT/HCPCS: 80048; 83735; 87186; 87205

== ENCOUNTER 2023-06-09 09:27 | Outpatient (CLI) | payer MEDICARE, SELFPAY | END 2023-06-09 09:28 | disposition home or self-care (01) | PROVIDERS: PCP Family Medicine; Visit Provider Family Medicine | DX: Z00.00 Encounter for general adult medical examination without abnormal findings (principal); E66.01 Morbid (severe) obesity due to excess calories; G25.81 Restless legs syndrome; G31.84 Mild cognitive impairment of uncertain or unknown etiology; Z13.6 Encounter for screening for cardiovascular disorders | CPT/HCPCS: 80053; 80061; 82306; 82607; 82728 ==

== ENCOUNTER 2023-06-15 13:38 | Outpatient (CLI) | payer MEDICARE, SELFPAY ==
--- NOTE | 2023-06-15 14:00 | CRLHL7_ITS ---
For Patients: As a result of the Century Cures Act, medical imaging exams and procedure reports are released immediately into your electronic medical record. You may view this report before your referring provider. If you have questions, please contact your health care provider. INDICATION: Lung cancer screening. History of smoking. High risk patient with greater than pack-year smoking history. TECHNIQUE: Low-dose lung cancer screening non-contrast CT chest. Dose reduction techniques were used. COMPARISON: None. FINDINGS: NODULES: None. LUNGS AND PLEURA: Mild emphysema. Subpleural reticular ground-glass could represent fibrosis. No honeycombing is seen. MEDIASTINUM: Normal. CORONARY ARTERY CALCIFICATION: Present. LIMITED UPPER ABDOMEN: Normal. MUSCULOSKELETAL: Normal. IMPRESSION: 1. Negative for lung cancer screening purposes. LUNG-RADS CATEGORY: 1: Negative. RADIOLOGIST RECOMMENDATION: Continue annual screening with low-dose CT chest in 12 months. Please note that all CT scans at this facility use dose modulation, iterative reconstruction, and/or weight-based dosing when appropriate to reduce radiation dose to as low as reasonably achievable. Dictated by Lilian Schreiber MD @ 06/17/2023 6:24:31 AM (Electronically Signed)
== END 2023-06-15 13:39 | disposition home or self-care (01) ==
PROVIDERS: PCP Family Medicine; Visit Provider Family Medicine
DX: Z12.2 Encounter for screening for malignant neoplasm of respiratory organs (principal); Z87.891 Personal history of nicotine dependence
CPT/HCPCS: 71271

== ENCOUNTER 2023-06-28 13:52 | Outpatient (CLI) | payer MEDICARE, SELFPAY | END 2023-06-28 13:53 | disposition home or self-care (01) | LOC: FRMREF 13:52 | PROVIDERS: PCP Family Medicine; Visit Provider Family Medicine | DX: L03.90 Cellulitis, unspecified (principal) | CPT/HCPCS: 87070; 87186 ==

== ENCOUNTER 2024-06-13 11:23 | Outpatient (CLI) | payer MEDICARE, SELFPAY ==
--- OUTSIDE RECORDS SUMMARY | 2024-06-15 09:49 | XMS_ITS | Clinical Summary ---
Author Organization [place] Address [address] [facility] [place] [address] Care Team Providers Care Director Check Name Role Phone Sarabjit Tenorio MD Primary Care Provider + Melita Griffiths DPM, Podiatry /Foot and Ankle Surgery Unavailable Allergies No known active allergies Medications pramipexole (MIRAPEX) 0.5 MG tablet Every Day At Bedtime 09/28/2022 Active pravastatin (PRAVACHOL) 40 MG tablet Take 40 mg by mouth every morning 10/18/2023 Active ASPIRIN 81 PO aspirin 81 mg tablet,delay ed release (DR/EC) Active memantine (NAMENDA) 5 MG tablet WEEK 1 TO 2 TAKE 1 TABLET EVERY EVENING. WEEK 3 TO 4 TAKE 1 TABLET TWICE DAILY. WEEK 5 TO 6 TAKE 1 TABLET IN THE MORNING AND 2 EVERY EVEN Active donepezil (ARICEPT) 10 MG tablet Take 10 mg by mouth at bedtime Active vitamin D3 (CHOLECALCIFERO L) 1.25 MG (98199 UT) capsule Take 50,000 Units by mouth every 7 days Active Active Problems Problem Noted Date Diagnosed Date Vasomotor rhinitis 02/26/2020 CRF (chronic renal failure), stage 2 (mild) 06/24 CARDIOVASCULAR SCREENING; LDL GOAL LESS THAN 130 04/18/2014 Resolved Problems Problem Noted Date Diagnosed Date Resolved Date Tobacco use disorder 04/18/2014 018 Immunizations Name Administration Dates Next Due Influenza (High Dose) Trival ent,PF (Fluzone) 06/07/2018 Influenza (IIV3) PF 06/07/2013, 2,05/28/2011,2009,07/09/2008 Influenza Vaccine >6 months,quad, PF 06/18/2015 Influenza Vaccine, 6+MO IM (QUADRIVALENT W/PRESERVATIVES) 05/30/2017 Influenza, seasonal, injectable, PF 07/24/2009 Pneumococcal 23 valent 05/16/2018 TDAP Vaccine (Adacel) 04/18/2014 Family History Medical History Relation Comments Leukemia Brother Alzheimer Disease Father Prostate Cancer Father metastatic Cerebrovascular Disease Mother Dementia Mother Hypertension Mother Alzheimer Disease Sister Relation Status Comments Brother Alive Father Maternal Grandfather Maternal Grandmother Mother Paternal Grandfather Paternal Grandmother Sister Social History Tobacco Use Types Packs/Day Years Used Date Smoking Tobacco: Former Cigarettes 1 50.4 0 04/23/1967 - 08/30/2017 Smokeless Tobacco: Never Tobacco Cessation:Counseling Given: Not Answered Comments:hand rolled Alcohol Use Standard Drinks/Week Comments Yes 0 (1 standard drink = 0.6 oz pur e alcohol) a few drinks per month PHQ-2 Answer Date Recorded PHQ-2 Score 0 11/24/2023 Adolescent Education Answer Date Record ed Getting School Help Needed Not on file 06/05 Sex and Gender Information Value Date Recorded Sex Assigned at Not on file Legal Sex Male 3:10 AM MITTEN SEWER Gender Identity Not on file Sexual Orientation Not on file Last Filed Vital Signs Vital Sign Reading Time Taken Comments Blood Pressure 124/78 11/24/2023 2:15 PM CDT Pulse 86 02/26/2020 7:13 PM CDT Temperature 36.4 ??C (97.6 ??F) 02/26/2020 7:13 PM CD T Respiratory Rate 16 02/26/2020 7:13 PM CDT Oxygen Saturation 98% 02/26/2020 7:13 PM CDT Inhaled Oxygen Concentration - - Weight 88.5 kg (195 lb) 11/24/2023 2:15 PM CDT Height 198.8 cm (6' 6.25) 11/24/2023 2:15 PM CD T Body Mass Index 22.39 11/24/2023 2:15 PM CDT Plan of Treatment Health Maintenance Due Date Last Done Comments ADVANCE CARE PLANNING 1950 ANNUAL REVIEW OF HM ORDERS 1950 CT COLONOGRAPHY 1950 FIT 1950 FLEX SIG 1950 MICROALBUMIN 1950 sDNA (Cologuard) 1950 URINALYSIS 1951 LUNG CANCER SCREENING 2002 ZOSTER IMMUNIZATION (1 of 2) 2002 AORTIC ANEURYSM SCREENING (SYSTEM ASSIGNED) 2017 LIPID 07/14/2018 07/14/2017, 04/18/2014 MEDICARE ANNUAL WELLNESS VISIT 07/14/2018 07/14/2017, 04/18/2014 BMP 04/13/2019 04/13/2018, 06/24, 04/18/2014 FALL RISK ASSESSMENT 05/16/2019 05/16/2018 GLUCOSE 04/13/2021 04/13/2018, 06/24, 04/18/2014 COVID-19 Vaccine ( season) 2024 06/20/2023, 05/14/2022, 11/30/2021, Additional history exists INFLUENZA VACCINE (#1) 2024 , 06/05/2022, 06/05/2022, Additional history exists COLONOSCOPY 06/08/2024 06/08/2014, 06/08/2014 COLORECTAL CANCER SCREENING 06/08/2024 RSV VACCINE (1 - 1-dose 75+ series) 2027 DTAP/TDAP/TD IMMUNIZATION (3 - Td or Tdap) 06/20/2032 06/20/2022, 04/18/2014, 02/04/1999, Additional history exists HEPATITIS C SCREENING Completed 07/14/2017 Pneumococcal Vaccine: 65+ Years Completed 04/22/2022, 05/16/2018 PHQ-2 (once per calendar year) Completed 11/24/2023, 07/28/2017, 07/14/2017, Additional history exists HPV IMMUNIZATION Aged Out No longer e ligible based on patient's age to complete this topic MENINGITIS IMMUNIZATION Aged Out No l onger eligible based on patient's age to complete this topic RSV MONOCLONAL ANTIBODY Aged Out No l onger eligible based on patient's age to complete this topic Procedures Procedure Name Priority Date/Time Associated Diagnosis Comments COMPREHENSIVE METABOLIC PANEL Routine 04/13/2018 8:26 AM CDT Dysgeusia Flatulence, eructation, and gas pain HEPATITIS C SCREEN REFLEX TO HCV RNA QUANT AND GENOTYPE Routine 07/14/2017 8:11 AM MITTEN SEWER Need for hepatitis C screening test LIPID REFLEX TO DIRECT LDL PANEL Routine 07/14/2017 8:11 AM MITTEN SEWER Routine general medical examination at a health care facility COLONOSCOPY Routine 06/08/2014 7:22 AM CDT from Last 3 Months or Most Recently Relevant to Health Maintenance Results * (ABNORMAL) Comprehensive metabolic panel (04/13/2018 8:26 AM CDT) Sodium 136 133 - 144 mmol/L 04/13/2018 5:39 PM CDT [facility] Potassium 4.1 3.4 - 5.3 mmol/L 04/13/2018 5:39 PM CDT [facility] Chloride 104 94 - 109 mmol/L 04/13/2018 5:39 PM CDT [facility] Carbon Dioxide 26 20 - 32 mmol/L 04/13/2018 5:39 PM CDT [facility] Anion Gap 6 3 - 14 mmol/L 04/13/2018 5:39 PM CDT [facility] Glucose 102(H) 70 - 99 mg/dL 04/13/2018 5:39 PM CDT [facility] Urea Nitrogen 15 7 - 30 mg/dL 04/13/2018 5:39 PM CDT [facility] Creatinine 1.32(H) 0.66 - 1.25 mg/dL 04/13/2018 5:39 PM CDT [facility] GFR Estimate 54(L) >60 mL/min/1. 7m2 04/13/2018 5:39 PM CDT [facility] Comment:Non GFR Calc GFR Estimate If Black 66 >60 mL/min/1. 7m2 04/13/2018 5:39 PM CDT [facility] Comment: GFR Calc Calcium 8.9 8.5 - 10.1 mg/dL 04/13/2018 5:39 PM CDT [facility] Bilirubin Total 0.6 0.2 - 1.3 mg/dL 04/13/2018 5:39 PM CDT [facility] Albumin 4.0 3.4 - 5.0 g/dL 04/13/2018 5:39 PM CDT [facility] Protein Total 7.1 6.8 - 8.8 g/dL 04/13/2018 5:39 PM CDT [facility] Alkaline Phosphatase 83 40 - 150 U/L 04/13/2018 5:39 PM CDT [facility] ALT 23 0 - 70 U/L 04/13/2018 5:39 PM CDT [facility] AST 19 0 - 45 U/L 04/13/2018 5:39 PM CDT [facility] Blood specimen (specimen) 04/13/2018 8:26 AM CDT 04/13/2018 8:31 AM CDT Sarabjit Tenorio MD LAB - BLOOD ORDERABLES F inal Result Performing Organization Address City/[facility]/ZIP Co de Phone Number [facility] [address] [address] * Hepatitis C Screen Reflex to HCV RNA Quant and Genotype (07/14/2017 8:11 AM MITTEN SEWER) Hepatitis C Antibody Nonreactive NR^Nonre active 07/16/2017 10:35 AM MITTEN SEWER [facility] Comment: Assay performance characteristics have not been established for newborns, infants, and children Blood specimen (specimen) 07/14/2017 8:11 AM MITTEN SEWER 07/14/2017 8:16 AM MITTEN SEWER Sarabjit Tenorio MD LAB - BLOOD ORDERABLES F inal Result [facility] [address] [place] [address] * (ABNORMAL) Lipid panel reflex to direct LDL Fasting (07/14/2017 8:11 AM MITTEN SEWER) Cholesterol 213(H) <200 mg/dL 07/15/2017 5:15 PM MITTEN SEWER [facility] Comment:Desirable: <200 mg/d l Triglycerides 92 <150 mg/dL 07/15/2017 5:15 PM MITTEN SEWER [facility] Comment:Fasting specimen HDL Cholesterol 79 >39 mg/dL 7 5:15 PM MITTEN SEWER [facility] LDL Cholesterol Calculated 116(H) <100 mg/dL 07/15/2017 5:15 PM MITTEN SEWER [facility] Comment: Above desirable: ??100-129 mg/dl Borderline High: ??130-159 mg/dL High: ? 160-189 mg/dL Very high: ? >189 mg/dl Non HDL Cholesterol 134(H) <130 mg/dL 07/15/2017 5:15 PM MITTEN SEWER [facility] Comment: Above Desirable: ??130-159 mg/dl Borderline high: ??160-189 mg/dl High: ? 190-219 mg/dl Very high: ? >219 mg/dl Blood specimen (specimen) 07/14/2017 8:11 AM MITTEN SEWER 07/14/2017 8:16 AM MITTEN SEWER us Sarabjit Tenorio MD LAB - BLOOD ORDERABLES F inal Result [facility] [address] [place] [address] * COLONOSCOPY (06/08/2014 7:22 AM CDT) COLONOSCOPY [facility] Patient Name: En Zamora ?Procedure Date: 06/08/2014 7:22 AM ? Date of : 1950 ? Admit Type: Outpatient Age: 63 ? Gender: Male Attending MD: Jose Lopez MD ?Instrument Name: [id number] Procedure: ?Colonoscopy Indications: ?High risk colon cancer surveillance: Personal ?history of colonic polyps Providers: ?Jose Lopez MD Referring MD: ? Sarabjit eTnorio MD Medicines: ?Midazolam 2 mg IV, Fentanyl [...] ?oxygen saturations were monitored continuously. The ?[id number] was introduced through the anus ?and advanced to the cecum, identified by ?appendiceal orifice and ileocecal valve. The ?colonoscopy was performed without difficulty. The ?patient tolerated the procedure well. The quality ?of the bowel preparation was good. ? Findings: ? The perianal and digital rectal examinations were normal. ? The entire examined colon appeared normal [...] history of colonic polyps CPT copyright 2013 [employer]. All rights reserved. The codes documented in this report are preliminary and upon evidence specialist review may be revised to meet current compliance requirements. Electronically signed by Jose Lopez MD __ Jose Lopez MD 06/08/2014 7:48 AM I was physically present for the entire viewing portion of the exam. Number of Addenda: 0 Note Initiated On: 06/08/2014 7:22 AM MRN: ?[id number] Procedure Date: ? 06/08/2014 7:22:44 AM Scope Withdrawal Time: 0 hours 6 minutes 14 seconds Total Procedure Duration: 0 hours 19 minutes 0 seconds Scope In: 7:23:18 AM Scope Out: 7:42:18 AM RADIOLOGY RESULTS 06/08/2014 7:22 AM CDT Sarabjit Tenorio MD PROCEDURES Final Re sult RADIOLOGY RESULTS from Last 3 Months or Most Recently Relevant to Health Maintenance Insurance [facility] MEDICARE ADVANTAGE [facility] MEDICARE ADVANTAGE Care Teams Director Check Relationship Specialty Start Date End Date Sarabjit Tenorio MD PCP - General Family Practice 04/18/14 Melita Griffiths DPM, Podiatry/Foot and Ankle Surgery [address] [place] [address] Assigned Musculoskeletal Provider 12/14/23
--- OUTSIDE RECORDS SUMMARY | 2024-06-15 09:49 | XMS_ITS | Encounter Summary ---
Author Organization [place] Address [address] [place] [address]. [place] [address] Care Team Providers Care Railroad Construction Director Name Role Phone Sarabjit Tenorio MD Primary Care Provider + Sarabjit Tenorio MD Unavailable [phone] Melita GriffithsM, Podiatry /Foot and Ankle Surgery Unavailable Encounter Details Date Type Department Care Team (Late st Contact Info) Description 04/04/2019 MyC Medical Advice [address], [address] [place] [address] Shivani Peter [facility] Social History Tobacco Use Types Packs/Day Years Used Date Smoking Tobacco: Former Cigarettes 1 50.4 0 04/23/1967 - 08/30/2017 Smokeless Tobacco: Never Comments:hand rolled Alcohol Use Standard Drinks/Week Comments Yes 0 (1 standard drink = 0.6 oz pur e alcohol) a few drinks per month PHQ-2 Answer Date Recorded PHQ-2 Score 0 08/30/2018 Sex and Gender Information Value Date Recorded Sex Assigned at Not on file 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
--- OUTSIDE RECORDS SUMMARY | 2024-06-15 09:49 | XMS_ITS | Clinical Summary ---
Author Organization [facility] Address [place], [place] [address] Care Team Providers Care Splitter Hand Name Role Phone Sarabjit Tenorio MD Primary Care Provider [phone] Allergies No known active allergies Medications Medication Sig Dispensed Refills Start Date End Date Status fish oil-omega-3 fatty acids (FISH OIL) 1,000-340 mg capsule Take by mouth. Active aspirin (ECOTRIN) 81 mg enteric coated tablet Take by mouth. Active Active Problems Problem Noted Date Diagnosed Date Presbyopia 09/21/2017 Hyperopic astigmatism of left eye 09/21/2017 Regular astigmatism of right eye 09/21/2017 Pseudophakia of right eye 09/21/2017 Nuclear senile cataract of left eye 07/27/2017 EPICONDYLITIS, LATERAL 03/31/2001 Social History Tobacco Use Types Packs/Day Years Used Date Smoking Tobacco: Former Cigarettes Smokeless Tobacco: Never Sex and Gender Information Value Date Recorded Sex Assigned at Not on file Gender Identity Not on file Sexual Orientation Not on file Obstetrics History Last Filed Vital Signs Vital Sign Reading Time Taken Comments Blood Pressure 131/78 07/31/2019 4:58 PM TANKER DRIVER Pulse 74 07/31/2019 4:58 PM TANKER DRIVER Temperature 36.4 ??C (97.5 ??F) 08/12/2017 11:[address] Respiratory Rate 16 08/12/2017 2:02 PM TANKER DRIVER Oxygen Saturation 98% 08/12/2017 2:02 PM TANKER DRIVER Inhaled Oxygen Concentration - - Weight 78.9 kg (174 lb) 08/12/2017 11:44 AM TANKER DRIVER Height 192 cm (6' 3.6) 08/12/2017 11:44 AM TANKER DRIVER Body Mass Index 21.4 08/12/2017 11:44 AM TANKER DRIVER Plan of Treatment Health Maintenance Due Date Last Done Comments Tdap 1963 Depression screening for age 12+ 1964 BMI (ht and wt on same day) for age 18+ 1970 Hepatitis C screening for age 18-79 1970 Tetanus booster 1972 Colonoscopy through age 75 1997 Lipids for age 45-75 1997 Zoster (shingles) series for age 50+ (1 of 2) 08/19/20 02 Medicare Wellness for age 65+ 2017 Pneumococcal series for age 65+ (1 of 1 - PCV) 017 COVID-19 vaccine series (2023- season) 4 Influenza for age 65+ 04/23/2024 Medical Devices Implanted Type Area Patch Sander Device Identifier Shelf Expiration Date Model / Serial / Lot Iol [place] +22.5 Acrysof Iq Sn60wf - [id number] Implanted:Qty: 1 on 08/12/2017 by Ruddy Singleton MD at [facility] Right: Eye [employer] 08/22/2021 [id number]. [id number]# / [id number] / Advance Directives * Full Code (Latest Code Status on File) Date Activated Date Inactivated Comments 08/12/2017 11:40 AM 08/12/2017 4:16 PM Care Teams Splitter Hand Relationship Specialty Start Date End Date Tenorio, Sarabjit P, MD PCP - General 06/14/17
--- OUTSIDE RECORDS SUMMARY | 2024-06-15 09:49 | XMS_ITS | Referral Summary ---
Author Organization [facility] Address [address] 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 Gender Identity Not on file Sexual Orientation [...] 11/24/2023 2:15 PM CDT Plan of Treatment Not on file Procedures Procedure Name Priority Date/Time Associated Diagnosis Comments COMPREHENSIVE METABOLIC PANEL Routine 04/13/2018 8:26 AM CDT Dysgeusia Flatulence, eructation, and gas pain HEPATITIS C SCREEN REFLEX TO HCV RNA QUANT AND GENOTYPE Routine 07/14/2017 8:11 AM TRUCK ENGINE TECHNICIAN Need for hepatitis C screening test LIPID REFLEX TO DIRECT LDL PANEL Routine 07/14/2017 8:11 AM TRUCK ENGINE TECHNICIAN Routine general medical examination at a health care facility COLONOSCOPY Routine 06/08/2014 7:22 AM CDT from Last 3 Months or Most Recently Relevant to Health Maintenance Results * (ABNORMAL) Comprehensive metabolic panel (04/13/2018 8:26 AM CDT) Sodium 136 133 - 144 mmol/L 04/13/2018 5:39 PM CDT [facility] Potassium 4.1 3.4 - 5.3 mmol/L 04/13/2018 5:39 PM CDT [facility] Chloride 104 94 - 109 mmol/L 04/13/2018 5:39 PM CDT [facility] Carbon Dioxide 26 20 - 32 mmol/L 04/13/2018 5:39 PM CDT [facility] Anion Gap 6 3 - 14 mmol/L 04/13/2018 5:39 PM CDT [facility] Glucose 102(H) 70 - 99 mg/dL 04/13/2018 5:39 PM CDT [facility] Urea Nitrogen 15 7 - 30 mg/dL 04/13/2018 5:39 PM T [facility] Creatinine 1.32(H) 0.66 - 1.25 mg/dL 04/13/2018 5:39 PM CDT [facility] GFR Estimate 54(L) >60 mL/min/1. 7m2 04/13/2018 5:39 PM T [facility] Comment:Non GFR Calc GFR Estimate If Black 66 >60 mL/min/1. 7m2 04/13/2018 5:39 PM T [facility] Comment: GFR Calc Calcium 8.9 8.5 - 10.1 mg/dL 04/13/2018 5:39 PM CDT [facility] Bilirubin Total 0.6 0.2 - 1.3 mg/dL 04/13/2018 5:39 PM T [facility] Albumin 4.0 3.4 - 5.0 g/dL 04/13/2018 5:39 PM CDT [facility] Protein Total 7.1 6.8 - 8.8 g/dL 04/13/2018 5:39 PM CDT [facility] Alkaline Phosphatase 83 40 - 150 U/L 04/13/2018 5:39 PM CDT [facility] ALT 23 0 - 70 U/L 04/13/2018 5:39 PM CDT [facility] AST 19 0 - 45 U/L 04/13/2018 5:39 PM CDT [facility] Blood specimen (specimen) 04/13/2018 8:26 AM CDT 04/13/2018 8:31 AM CDT Sarabjit Tenorio MD LAB - BLOOD ORDERABLES F inal Result Performing Organization Address City/[facility] Co de Phone Number [facility] [address], [place] [address] * Hepatitis C Screen Reflex to HCV RNA Quant and Genotype (07/14/2017 8:11 AM TRUCK ENGINE TECHNICIAN) Pathologist [facility] Hepatitis C Antibody Nonreactive NR^Nonre active 07/16/2017 10:35 AM TRUCK ENGINE TECHNICIAN [facility] Comment: Assay performance characteristics have not been established for newborns, infants, and children Blood specimen (specimen) 07/14/2017 8:11 AM TRUCK ENGINE TECHNICIAN 07/14/2017 8:16 AM TRUCK ENGINE TECHNICIAN Sarabjit Tenorio MD LAB - BLOOD ORDERABLES F inal Result Performing Organization Address City/[facility]/ZIP Co de Phone Number [facility] [address] [place] [address] * (ABNORMAL) Lipid panel reflex to direct LDL Fasting (07/14/2017 8:11 AM TRUCK ENGINE TECHNICIAN) Cholesterol 213(H) <200 mg/dL 07/15/2017 5:15 PM TRUCK ENGINE TECHNICIAN [facility] Comment:Desirable: <200 mg/d l Triglycerides 92 <150 mg/dL 07/15/2017 5:15 PM TRUCK ENGINE TECHNICIAN [facility] Comment:Fasting specimen HDL Cholesterol 79 >39 mg/dL 7 5:15 PM TRUCK ENGINE TECHNICIAN [facility] LDL Cholesterol Calculated 116(H) <100 mg/dL 07/15/2017 5:15 PM TRUCK ENGINE TECHNICIAN [facility] Comment: Above desirable: ??100-129 mg/dl Borderline High: ??130-159 mg/dL High: ? 160-189 mg/dL Very high: ? >189 mg/dl Non HDL Cholesterol 134(H) <130 mg/dL 07/15/2017 5:15 PM TRUCK ENGINE TECHNICIAN [facility] Comment: Above Desirable: ??130-159 mg/dl Borderline high: ??160-189 mg/dl High: ? 190-219 mg/dl Very high: ? >219 mg/dl Blood specimen (specimen) 07/14/2017 8:11 AM TRUCK ENGINE TECHNICIAN 07/14/2017 8:16 AM TRUCK ENGINE TECHNICIAN us Sarabjit Tenorio MD LAB - BLOOD ORDERABLES F inal Result [facility] [address] [place] [address] * COLONOSCOPY (06/08/2014 7:22 AM CDT) COLONOSCOPY [facility] Patient Name: En Zamora ?Procedure Date: 06/08/2014 7:22 AM ? Date of : 1950 ? Admit Type: Outpatient Age: 63 ? Gender: Male Attending MD: Jose Lopez MD ?Instrument Name: [id number] Procedure: ?Colonoscopy Indications: ?High risk colon cancer surveillance: Personal ?history of colonic polyps Providers: ?Jose Lopez MD Referring : ? Sarabjit Tenorio MD Medicines: ?Midazolam 2 mg IV, Fentanyl [...] ?oxygen saturations were monitored continuously. The ?PCF-H190L [id number] was introduced through the anus ?and advanced [...] history of colonic polyps CPT copyright 2013 [employer]. All rights reserved. The codes documented in this report are preliminary and upon outpatient coder review may be revised to meet current compliance requirements. Electronically signed by Jose Lopez MD __ Jose Lopez MD 06/08/2014 7:48 AM I was physically present for the entire viewing portion of the exam. Number of Addenda: 0 Note Initiated On: 06/08/2014 7:22 AM MRN: ?[id number] Procedure Date: ? 06/08/2014 7:22:44 AM Scope Withdrawal Time: 0 hours 6 minutes 14 seconds Total Procedure Duration: 0 hours 19 minutes 0 seconds Scope In: 7:23:18 AM Scope Out: 7:42:18 AM RADIOLOGY RESULTS 06/08/2014 7:22 AM CDT us Sarabjit Tenorio MD PROCEDURES Final Re sult RADIOLOGY RESULTS from Last 3 Months or Most Recently Relevant to Health Maintenance Insurance [facility] MEDICARE ADVANTAGE Care Teams Prevention Coordinator Relationship Specialty Start Date End Date Sarabjit Tenorio MD PCP - General Family Practice 04/18/14 Melita Griffiths DPM, Podiatry/Foot and Ankle Surgery [address] [place] [address] Assigned Musculoskeletal Provider 12/14/23
== END 2024-06-13 11:24 | disposition home or self-care (01) ==
LOC: NFLDREF 06-15 09:42
PROVIDERS: PCP Physician Assistant Medical; Referring Provider Physician Assistant Medical; Visit Provider Physician Assistant Medical
DX: G25.81 Restless legs syndrome (principal); M79.671 Pain in right foot; M79.672 Pain in left foot; G30.9 Alzheimer's disease, unspecified; F02.A0 Dementia in other diseases classified elsewhere, mild, without behavioral disturbance, psychotic disturbance, mood disturbance, and anxiety; G60.9 Hereditary and idiopathic neuropathy, unspecified; J43.9 Emphysema, unspecified; Z13.6 Encounter for screening for cardiovascular disorders; Z12.5 Encounter for screening for malignant neoplasm of prostate
CPT/HCPCS: 80048; 80061; 82607; 82746; 84439; 84443; 84450; 84460; G0103

== ENCOUNTER 2024-06-23 08:55 | Outpatient (CLI) | payer MEDICARE, SELFPAY ==
--- OUTSIDE RECORDS SUMMARY | 2024-06-23 08:58 | XMS_ITS | Clinical Summary ---
Author Organization [facility] Address [address] [facility] 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 MANAGER Gender Identity Not on file Sexual Orientation [...] QUANT AND GENOTYPE Routine 07/14/2017 8:11 AM INCIDENT RESPONSE MANAGER Need for hepatitis C screening test LIPID REFLEX TO DIRECT LDL PANEL Routine 07/14/2017 8:11 AM INCIDENT RESPONSE MANAGER Routine general medical examination at a health care facility COLONOSCOPY Routine 06/08/2014 7:22 AM CDT from Last 3 Months or Most Recently Relevant to Health Maintenance Results * (ABNORMAL) Comprehensive metabolic panel (04/13/2018 8:26 AM CDT) Sodium 136 133 - 144 mmol/L 04/13/2018 5:39 PM CDT [facility] Potassium 4.1 3.4 - 5.3 mmol/L 04/13/2018 5:39 PM CDT [facility] Chloride 104 94 - 109 mmol/L 04/13/2018 5:39 PM CDT [facility] Carbon Dioxide 26 20 - 32 mmol/L 04/13/2018 5:39 PM CDT [facility] Anion Gap 6 3 - 14 mmol/L 04/13/2018 5:39 PM CDT [facility] Glucose 102(H) 70 - 99 mg/dL 04/13/2018 5:39 PM CDT [facility] Urea Nitrogen 15 7 - 30 mg/dL 04/13/2018 5:39 PM CDT [facility] Creatinine 1.32(H) 0.66 - 1.25 mg/dL 04/13/2018 5:39 PM CDT [facility] GFR Estimate 54(L) >60 mL/min/1. 7m2 04/13/2018 5:39 PM CDT [facility] Comment:Non GFR Calc GFR Estimate If Black 66 >60 mL/min/1. 7m2 04/13/2018 5:39 PM CDT [facility] Comment: GFR Calc Calcium 8.9 8.5 - 10.1 mg/dL 04/13/2018 5:39 PM CDT [facility] Bilirubin Total 0.6 0.2 - 1.3 mg/dL 04/13/2018 5:39 PM CDT [facility] Albumin 4.0 3.4 - 5.0 g/dL 04/13/2018 5:39 PM CDT [facility] Protein Total 7.1 6.8 - 8.8 g/dL 04/13/2018 5:39 PM CDT [facility] Alkaline Phosphatase 83 40 - 150 U/L 04/13/2018 5:39 PM CDT [facility] ALT 23 0 - 70 U/L 04/13/2018 5:39 PM CDT [facility] AST 19 0 - 45 U/L 04/13/2018 5:39 PM CDT [facility] Blood specimen (specimen) 04/13/2018 8:26 AM CDT 04/13/2018 8:31 AM CDT Sarabjit Tenorio MD LAB - BLOOD ORDERABLES F inal Result Performing Organization Address City/[facility]/ZIP Co de Phone Number [facility] [address], [place] [address] * Hepatitis C Screen Reflex to HCV RNA Quant and Genotype (07/14/2017 8:11 AM INCIDENT RESPONSE MANAGER) Hepatitis C Antibody Nonreactive NR^Nonre active 07/16/2017 10:35 AM INCIDENT RESPONSE MANAGER [facility] Comment: Assay performance characteristics have not been established for newborns, infants, and children Blood specimen (specimen) 07/14/2017 8:11 AM INCIDENT RESPONSE MANAGER 07/14/2017 8:16 AM INCIDENT RESPONSE MANAGER Sarabjit Tenorio MD LAB - BLOOD ORDERABLES F inal Result [facility] [address] [place] [address] * (ABNORMAL) Lipid panel reflex to direct LDL Fasting (07/14/2017 8:11 AM INCIDENT RESPONSE MANAGER) Cholesterol 213(H) <200 mg/dL 07/15/2017 5:15 PM INCIDENT RESPONSE MANAGER [facility] Comment:Desirable: <200 mg/d l Triglycerides 92 <150 mg/dL 07/15/2017 5:15 PM INCIDENT RESPONSE MANAGER [facility] Comment:Fasting specimen HDL Cholesterol 79 >39 mg/dL 7 5:15 PM INCIDENT RESPONSE MANAGER [facility] LDL Cholesterol Calculated 116(H) <100 mg/dL 07/15/2017 5:15 PM INCIDENT RESPONSE MANAGER [facility] Comment: Above desirable: ??100-129 mg/dl Borderline High: ??130-159 mg/dL High: ? 160-189 mg/dL Very high: ? >189 mg/dl Non HDL Cholesterol 134(H) <130 mg/dL 07/15/2017 5:15 PM INCIDENT RESPONSE MANAGER [facility] Comment: Above Desirable: ??130-159 mg/dl Borderline high: ??160-189 mg/dl High: ? 190-219 mg/dl Very high: ? >219 mg/dl Blood specimen (specimen) 07/14/2017 8:11 AM INCIDENT RESPONSE MANAGER 07/14/2017 8:16 AM INCIDENT RESPONSE MANAGER us Sarabjit Tenorio MD LAB - BLOOD ORDERABLES F inal Result [facility] [address] [place] [address] * COLONOSCOPY (06/08/2014 7:22 AM CDT) COLONOSCOPY [facility] Patient Name: En Zamora ?Procedure Date: 06/08/2014 7:22 AM ? Date of : 1950 ? Admit Type: Outpatient Age: 63 ? Gender: Male Attending MD: Jose Lopez MD ?Instrument Name: P-133 Procedure: ?Colonoscopy Indications: ?High risk colon cancer surveillance: Personal ?history of colonic polyps Providers: ?Jose Lopez MD Referring MD: ? Sarabjit Tenorio MD Medicines: ?Midazolam 2 [...] ?oxygen saturations were monitored continuously. The ?PCF-H190L [id number] was introduced through the anus ?and advanced [...] history of colonic polyps CPT copyright 2013 [employer]. All rights reserved. The codes documented in this report are preliminary and upon equipment maint tech review may be revised to meet current compliance requirements. Electronically signed by Jose Lopez MD __ Jose Lopez MD 06/08/2014 7:48 AM I was physically present for the entire viewing portion of the exam. Number of Addenda: 0 Note Initiated On: 06/08/2014 7:22 AM MRN: ?[id number] Procedure Date: ? 06/08/2014 7:22:44 AM Scope Withdrawal Time: 0 hours 6 minutes 14 seconds Total Procedure Duration: 0 hours 19 minutes 0 seconds Scope In: 7:23:18 AM Scope Out: 7:42:18 AM RADIOLOGY RESULTS 06/08/2014 7:22 AM CDT Sarabjit Tenorio MD PROCEDURES Final Re sult RADIOLOGY RESULTS from Last 3 Months or Most Recently Relevant to Health Maintenance Insurance [facility] MEDICARE [facility]VANT[facility] [place] [address] Care Teams Cable Wirer Relationship Specialty Start Date End Date Sarabjit Tenorio MD PCP - General Family Practice 04/18/14 Melita Griffiths DPM, Podiatry/Foot and Ankle Surgery [address] [place] [address] Assigned Musculoskeletal Provider 12/14/23
--- OUTSIDE RECORDS SUMMARY | 2024-06-23 08:58 | XMS_ITS | Clinical Summary ---
Author Organization [employer] Address [place], [place] [address] Care Team Providers Care Pari Mutuel Clerk Name Role Phone Sarabjit Tenoroi MD Primary Care Provider [phone] Allergies No known active allergies Medications Medication [...] Comments Blood Pressure 131/78 07/31/2019 4:58 PM NETWORK ADMIN Pulse 74 07/31/2019 4:58 PM NETWORK ADMIN Temperature 36.4 ??C (97.5 ??F) 08/12/2017 11:[address] Respiratory Rate 16 08/12/2017 2:02 PM NETWORK ADMIN Oxygen Saturation 98% 08/12/2017 2:02 PM NETWORK ADMIN Inhaled Oxygen Concentration - - Weight 78.9 kg (174 lb) 08/12/2017 11:44 AM NETWORK ADMIN Height 192 cm (6' 3.6) 08/12/2017 11:44 AM NETWORK ADMIN Body Mass Index 21.4 08/12/2017 11:44 AM NETWORK ADMIN Plan of Treatment Health Maintenance Due Date [...] 65+ 04/23/2024 Medical Devices Implanted Type Area Photography Sales Associate Device Identifier Shelf Expiration Date Model / Serial / Lot Iol [place] +22.5 Acrysof Iq Sn60wf - [id number] Implanted:Qty: 1 on 08/12/2017 by Ruddy Singleton MD at [facility] Right: Eye [employer] 08/22/2021 [id number]# / [id number] / Advance Directives * Full Code (Latest Code Status on File) Date Activated Date Inactivated Comments 08/12/2017 11:40 AM 08/12/2017 4:16 PM Care Teams Pari Mutuel Clerk Relationship Specialty Start Date End Date Tenorio, Sarabjit P, MD PCP - General 06/14/17
--- OUTSIDE RECORDS SUMMARY | 2024-06-23 08:58 | XMS_ITS | Encounter Summary ---
Author Organization [facility] Address [address] [place] [address]. 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
--- OUTSIDE RECORDS SUMMARY | 2024-06-23 08:58 | XMS_ITS | Referral Summary ---
Author Organization [place] Address [address] [facility] 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 Potassium 4.1 3.4 - 5.3 mmol/L 04/13/2018 5:[address] [facility] Chloride 104 94 - 109 mmol/L 04/13/2018 5:[address] [facility] Carbon Dioxide 26 20 - 32 mmol/L 04/13/2018 5:[address] [facility] Anion Gap 6 3 - 14 mmol/L 04/13/2018 5:[address] [facility] Glucose 102(H) 70 - 99 mg/dL 04/13/2018 5:[address] [facility] Urea Nitrogen 15 7 - 30 mg/dL 04/13/2018 5:[address] [facility] Creatinine 1.32(H) 0.66 - 1.25 mg/dL 04/13/2018 5:[address] [facility] GFR Estimate 54(L) >60 mL/min/1. 7m2 04/13/2018 5:[address] [facility] Comment:Non GFR Calc GFR Estimate If Black 66 >60 mL/min/1. 7m2 04/13/2018 5:[address] [facility] Comment: GFR Calc Calcium 8.9 8.5 - 10.1 mg/dL 04/13/2018 5:[address] [facility] Bilirubin Total 0.6 0.2 - 1.3 mg/dL 04/13/2018 5:[address] [facility] Albumin 4.0 3.4 - 5.0 g/dL 04/13/2018 5:[address] [facility] Protein Total 7.1 6.8 - 8.8 g/dL 04/13/2018 5:[address] [facility] Alkaline Phosphatase 83 40 - 150 U/L 04/13/2018 5:[address] [facility] ALT 23 0 - 70 U/L 04/13/2018 5:[address] [facility] AST 19 0 - 45 U/L 04/13/2018 5:[address] [facility] Blood specimen (specimen) 04/13/2018 8:26 AM CDT 04/13/2018 8:31 AM CDT Sarabjit Tenorio MD LAB - BLOOD ORDERABLES F inal Result Performing Organization Address City/[facility] Co de Phone Number [facility] [address], [place] [address] * Hepatitis C Screen Reflex to HCV RNA Quant and Genotype (07/14/2017 8:11 AM ENVIRONMENTAL HEALTH AND SAFETY INTERN) Pathologist [facility] Hepatitis C Antibody Nonreactive NR^Nonre active 07/16/2017 10:35 AM ENVIRONMENTAL HEALTH AND SAFETY INTERN [facility] Comment: Assay performance characteristics have not been established for newborns, infants, and children Blood specimen (specimen) 07/14/2017 8:11 AM ENVIRONMENTAL HEALTH AND SAFETY INTERN 07/14/2017 8:16 AM ENVIRONMENTAL HEALTH AND SAFETY INTERN Sarabjit Tenorio MD LAB - BLOOD ORDERABLES F inal Result Performing Organization Address City/[facility]/ZIP Co de Phone Number [facility] [address] [place] [address] * (ABNORMAL) Lipid panel reflex to direct LDL Fasting (07/14/2017 8:11 AM ENVIRONMENTAL HEALTH AND SAFETY INTERN) Cholesterol 213(H) <200 mg/dL 07/15/2017 5:15 PM ENVIRONMENTAL HEALTH AND SAFETY INTERN [facility] Comment:Desirable: <200 mg/d l Triglycerides 92 <150 mg/dL 07/15/2017 5:15 PM ENVIRONMENTAL HEALTH AND SAFETY INTERN [facility] Comment:Fasting specimen HDL Cholesterol 79 >39 mg/dL 7 5:15 PM ENVIRONMENTAL HEALTH AND SAFETY INTERN [facility] LDL Cholesterol Calculated 116(H) <100 mg/dL 07/15/2017 5:15 PM ENVIRONMENTAL HEALTH AND SAFETY INTERN [facility] Comment: Above desirable: ??100-129 mg/dl Borderline High: ??130-159 mg/dL High: ? 160-189 mg/dL Very high: ? >189 mg/dl Non HDL Cholesterol 134(H) <130 mg/dL 07/15/2017 5:15 PM ENVIRONMENTAL HEALTH AND SAFETY INTERN [facility] Comment: Above Desirable: ??130-159 mg/dl Borderline high: ??160-189 mg/dl High: ? 190-219 mg/dl Very high: ? >219 mg/dl Blood specimen (specimen) 07/14/2017 8:11 AM ENVIRONMENTAL HEALTH AND SAFETY INTERN 07/14/2017 8:16 AM ENVIRONMENTAL HEALTH AND SAFETY INTERN us Sarabjit Tenorio MD LAB - BLOOD ORDERABLES F inal Result [facility] [address] [place] [address] * COLONOSCOPY (06/08/2014 7:22 AM CDT) COLONOSCOPY [facility] Patient Name: En Zamora ?Procedure Date: 06/08/2014 [...] ?oxygen saturations were monitored continuously. The ?PCF-H190L [id number] was introduced through the anus ?and advanced [...] history of colonic polyps CPT copyright 2013 [employer]. All rights reserved. The codes documented in this report are preliminary and upon health support specialist review may be revised to meet current compliance requirements. Electronically signed by Jose Lopez MD __ Jose Lopez MD 06/08/2014 7:48 AM I was physically present for the entire viewing portion of the exam. Number of Addenda: 0 Note Initiated On: 06/08/2014 7:22 AM MRN: ?[id number] Procedure Date: ? 06/08/2014 7:22:44 AM Scope [...] [facility] MEDICARE ADVANTAGE Care Teams Manager Special Events Relationship Specialty Start Date End Date Sarabjit Tenorio MD PCP - General Family Practice 04/18/14 Melita Griffiths DPM, Podiatry/Foot and Ankle Surgery [address] [place] [address] Assigned Musculoskeletal Provider 12/14/23
--- NOTE | 2024-06-23 09:15 | CRLHL7_ITS ---
For Patients: As a result of the Cures Act, medical imaging exams and procedure reports are released immediately into your electronic medical record. You may view this report before your referring provider. If you have questions, please contact your health care provider. Examination: US abdominal aorta Indication: personal history of nicotine dependency. Abdominal aortic aneurysm screening. Technique: Frias scale and color Doppler images of the aorta and common iliac arteries are obtained. Comparison: None Findings: Proximal aorta: 2.8 x 2.5 cm Mid aorta: 2.4 x 2.5 cm Distal aorta: 1.8 x 1.9 cm Right common iliac artery: 0.9 x 1.1 cm Left common iliac artery: 0.9 x 1.0 cm Impression: No abdominal aortic aneurysm. Dictated by Jj Purcell MD @ 06/23/2024 12:59:29 PM (Electronically Signed)
== END 2024-06-23 08:56 | disposition home or self-care (01) ==
PROVIDERS: PCP Physician Assistant Medical; Visit Provider Physician Assistant Medical
DX: Z13.6 Encounter for screening for cardiovascular disorders (principal); Z87.891 Personal history of nicotine dependence
CPT/HCPCS: 76706

== ENCOUNTER 2024-06-29 07:14 | Outpatient (CLI) | payer MEDICARE, SELFPAY ==
--- OUTSIDE RECORDS SUMMARY | 2024-06-29 07:17 | XMS_ITS | Clinical Summary ---
Author Organization [facility] Address [place], [place] [address] Care Team Providers Care Internet Marketing Coordinator Name Role Phone Sarabjit Tenorio MD Primary Care Provider [phone] Allergies No known active allergies Medications Medication [...] Comments Blood Pressure 131/78 07/31/2019 4:58 PM AIRLINE CAPTAIN Pulse 74 07/31/2019 4:58 PM AIRLINE CAPTAIN Temperature 36.4 ??C (97.5 ??F) 08/12/2017 11:[address] Respiratory Rate 16 08/12/2017 2:02 PM AIRLINE CAPTAIN Oxygen Saturation 98% 08/12/2017 2:02 PM AIRLINE CAPTAIN Inhaled Oxygen Concentration - - Weight 78.9 kg (174 lb) 08/12/2017 11:44 AM AIRLINE CAPTAIN Height 192 cm (6' 3.6) 08/12/2017 11:44 AM AIRLINE CAPTAIN Body Mass Index 21.4 08/12/2017 11:44 AM AIRLINE CAPTAIN Plan of Treatment Health Maintenance Due Date [...] 65+ 04/23/2024 Medical Devices Implanted Type Area Rn Occupational Health Device Identifier Shelf Expiration Date Model / Serial / Lot Iol Dade +22.5 Acrysof Iq [id number] - [id number] Implanted:Qty: 1 on 08/12/2017 by Ruddy Singleton MD at [facility] Right: Eye [employer] 08/22/2021 [id number]. [id number]# / [id number] / Advance Directives * Full Code (Latest Code Status on File) Date Activated Date Inactivated Comments 08/12/2017 11:40 AM 08/12/2017 4:16 PM Care Teams Internet Marketing Coordinator Relationship Specialty Start Date End Date Tenorio, Sarabjit P, MD PCP - General 06/14/17
--- OUTSIDE RECORDS SUMMARY | 2024-06-29 07:17 | XMS_ITS | Clinical Summary ---
Author Organization [place] Address [address] 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 Potassium 4.1 3.4 - 5.3 mmol/L 04/13/2018 5:39 PM CDT [facility] Chloride 104 94 - 109 mmol/L 04/13/2018 5:39 PM CDT [facility] Carbon Dioxide 26 20 - 32 mmol/L 04/13/2018 5:39 PM CDT [facility] Anion Gap 6 3 - 14 mmol/L 04/13/2018 5:39 PM CDT [facility] Glucose 102(H) 70 - 99 mg/dL 04/13/2018 5:39 PM CDT [facility] Urea Nitrogen 15 7 - 30 mg/dL 04/13/2018 5:39 PM CDT [facility] Creatinine 1.32(H) 0.66 - 1.25 mg/dL 04/13/2018 5:39 PM CDT [facility] GFR Estimate 54(L) >60 mL/min/1. 7m2 04/13/2018 5:39 PM CDT [facility] Comment:Non GFR Calc GFR Estimate If Black 66 >60 mL/min/1. 7m2 04/13/2018 5:39 PM CDT [facility] Comment: GFR Calc Calcium 8.9 8.5 - 10.1 mg/dL 04/13/2018 5:39 PM CDT [facility] Bilirubin Total 0.6 0.2 - 1.3 mg/dL 04/13/2018 5:39 PM CDT [facility] Albumin 4.0 3.4 - 5.0 g/dL 04/13/2018 5:39 PM CDT [facility] Protein Total 7.1 6.8 - 8.8 g/dL 04/13/2018 5:39 PM CDT [facility] Alkaline Phosphatase 83 40 - 150 U/L 04/13/2018 5:39 PM CDT [facility] ALT 23 0 - 70 U/L 04/13/2018 5:39 PM CDT [facility] AST 19 0 - 45 U/L 04/13/2018 5:39 PM CDT [facility] Blood specimen (specimen) 04/13/2018 8:26 AM CDT 04/13/2018 8:31 AM CDT Sarabjit Tenorio MD LAB - BLOOD ORDERABLES F inal Result Performing Organization Address City/[facility]/ZIP Co de Phone Number [facility] [address] [address] * Hepatitis C Screen Reflex to HCV RNA Quant and Genotype (07/14/2017 8:11 AM CYBER INSTRUCTOR) Hepatitis C Antibody Nonreactive NR^Nonre active 07/16/2017 10:35 AM CYBER INSTRUCTOR [facility] Comment: Assay performance characteristics have not been established for newborns, infants, and children Blood specimen (specimen) 07/14/2017 8:11 AM CYBER INSTRUCTOR 07/14/2017 8:16 AM CYBER INSTRUCTOR Sarabjit Tenorio MD LAB - BLOOD ORDERABLES F inal Result [facility] [address] [place] [address] * (ABNORMAL) Lipid panel reflex to direct LDL Fasting (07/14/2017 8:11 AM CYBER INSTRUCTOR) Cholesterol 213(H) <200 mg/dL 07/15/2017 5:15 PM CYBER INSTRUCTOR [facility] Comment:Desirable: <200 mg/d l Triglycerides 92 <150 mg/dL 07/15/2017 5:15 PM CYBER INSTRUCTOR [facility] Comment:Fasting specimen HDL Cholesterol 79 >39 mg/dL 7 5:15 PM CYBER INSTRUCTOR [facility] LDL Cholesterol Calculated 116(H) <100 mg/dL 07/15/2017 5:15 PM CYBER INSTRUCTOR [facility] Comment: Above desirable: ??100-129 mg/dl Borderline High: ??130-159 mg/dL High: ? 160-189 mg/dL Very high: ? >189 mg/dl Non HDL Cholesterol 134(H) <130 mg/dL 07/15/2017 5:15 PM CYBER INSTRUCTOR [facility] Comment: Above Desirable: ??130-159 mg/dl Borderline high: ??160-189 mg/dl High: ? 190-219 mg/dl Very high: ? >219 mg/dl Blood specimen (specimen) 07/14/2017 8:11 AM CYBER INSTRUCTOR 07/14/2017 8:16 AM CYBER INSTRUCTOR us Sarabjit Tenorio MD LAB - BLOOD ORDERABLES F inal Result [facility] [address] [place] [address] * COLONOSCOPY (06/08/2014 7:22 AM CDT) COLONOSCOPY [facility] Patient Name: En Zamora ?Procedure Date: 06/08/2014 [...] ?oxygen saturations were monitored continuously. The ?PCF-H190L [id number] was introduced through the anus ?and advanced [...] in this report are preliminary and upon kaiawhina kura kaupapa maori review may be revised to meet current compliance requirements. Electronically signed by Jose Lopez MD __ Jose Lopez MD 06/08/2014 7:48 AM I was physically present for the entire viewing portion of the exam. Number of Addenda: 0 Note Initiated On: 06/08/2014 7:22 AM MRN: ?[id number] Procedure Date: ? 06/08/2014 7:22:44 AM Scope Withdrawal Time: 0 hours 6 minutes 14 seconds Total Procedure Duration: 0 hours 19 minutes 0 seconds Scope In: 7:23:18 AM Scope Out: 7:42:18 AM RADIOLOGY RESULTS 06/08/2014 7:22 AM CDT Sarabjit Tenorio MD PROCEDURES Final Re sult RADIOLOGY RESULTS from Last 3 Months or Most Recently Relevant to Health Maintenance Insurance [facility] MEDICARE ADVANTAGE [facility] MEDICARE ADVANTAGE Care Teams Bench Worker Helper Relationship Specialty Start Date End Date Sarabjit Tenorio MD PCP - General Family Practice 04/18/14 Melita Griffiths DPM, Podiatry/Foot and Ankle Surgery [address] [place] [address] Assigned Musculoskeletal Provider 12/14/23
--- OUTSIDE RECORDS SUMMARY | 2024-06-29 07:17 | XMS_ITS | Referral Summary ---
Author Organization [place] Address [address] [facility] [place] [address] Care Team Providers Care Transit Mechanic Name Role Phone Sarabjit Tenorio MD Primary [...] Active vitamin D3 (CHOLECALCIFERO L) 1.25 MG (87852 UT) capsule Take 50,000 Units by mouth [...] on file Legal Sex Male 3:10 AM EARLY CHILDHOOD EDUCATOR AIDE Gender Identity Not on file Sexual Orientation [...] QUANT AND GENOTYPE Routine 07/14/2017 8:11 AM EARLY CHILDHOOD EDUCATOR AIDE Need for hepatitis C screening test LIPID REFLEX TO DIRECT LDL PANEL Routine 07/14/2017 8:11 AM EARLY CHILDHOOD EDUCATOR AIDE Routine general medical examination at a health care facility COLONOSCOPY Routine 06/08/2014 7:22 AM CDT from Last 3 Months or Most Recently Relevant to Health Maintenance Results * (ABNORMAL) Comprehensive metabolic panel (04/13/2018 8:26 AM CDT) Sodium 136 133 - 144 mmol/L 04/13/2018 5:39 PM CDT [facility] Potassium 4.1 3.4 - 5.3 mmol/L 04/13/2018 5:39 PM CDT [facility] Chloride 104 94 - 109 mmol/L 04/13/2018 5:39 PM CDT [facility] Carbon Dioxide 26 20 - 32 mmol/L 04/13/2018 5:39 PM CDT [facility] Anion Gap 6 3 - 14 mmol/L 04/13/2018 5:39 PM CDT [facility] Glucose 102(H) 70 - 99 mg/dL 04/13/2018 5:39 PM CDT [facility] Urea Nitrogen 15 7 - 30 mg/dL 04/13/2018 5:39 PM T [facility] Creatinine 1.32(H) 0.66 - 1.25 mg/dL 04/13/2018 5:39 PM CDT [facility] GFR Estimate 54(L) >60 mL/min/1. 7m2 04/13/2018 5:39 PM T [facility] Comment:Non GFR Calc GFR Estimate If Black 66 >60 mL/min/1. 7m2 04/13/2018 5:39 PM T [facility] Comment: GFR Calc Calcium 8.9 8.5 - 10.1 mg/dL 04/13/2018 5:39 PM CDT [facility] Bilirubin Total 0.6 0.2 - 1.3 mg/dL 04/13/2018 5:39 PM T [facility] Albumin 4.0 3.4 - 5.0 g/dL 04/13/2018 5:39 PM CDT [facility] Protein Total 7.1 6.8 - 8.8 g/dL 04/13/2018 5:39 PM CDT [facility] Alkaline Phosphatase 83 40 - 150 U/L 04/13/2018 5:39 PM CDT [facility] ALT 23 0 - 70 U/L 04/13/2018 5:39 PM CDT [facility] AST 19 0 - 45 U/L 04/13/2018 5:39 PM CDT [facility] Blood specimen (specimen) 04/13/2018 8:26 AM CDT 04/13/2018 8:31 AM CDT Sarabjit Tenorio MD LAB - BLOOD ORDERABLES F inal Result Performing Organization Address City/[facility] Co de Phone Number [facility] [address] [address] * Hepatitis C Screen Reflex to HCV RNA Quant and Genotype (07/14/2017 8:11 AM EARLY CHILDHOOD EDUCATOR AIDE) Pathologist [facility] Hepatitis C Antibody Nonreactive NR^Nonre active 07/16/2017 10:35 AM EARLY CHILDHOOD EDUCATOR AIDE [facility] Comment: Assay performance characteristics have not been established for newborns, infants, and children Blood specimen (specimen) 07/14/2017 8:11 AM EARLY CHILDHOOD EDUCATOR AIDE 07/14/2017 8:16 AM EARLY CHILDHOOD EDUCATOR AIDE Sarabjit Tenorio MD LAB - BLOOD ORDERABLES F inal Result Performing Organization Address City/[facility]/ZIP Co de Phone Number [facility] [address] [place] [address] * (ABNORMAL) Lipid panel reflex to direct LDL Fasting (07/14/2017 8:11 AM EARLY CHILDHOOD EDUCATOR AIDE) Cholesterol 213(H) <200 mg/dL 07/15/2017 5:15 PM EARLY CHILDHOOD EDUCATOR AIDE [facility] Comment:Desirable: <200 mg/d l Triglycerides 92 <150 mg/dL 07/15/2017 5:15 PM EARLY CHILDHOOD EDUCATOR AIDE [facility] Comment:Fasting specimen HDL Cholesterol 79 >39 mg/dL 7 5:15 PM EARLY CHILDHOOD EDUCATOR AIDE [facility] LDL Cholesterol Calculated 116(H) <100 mg/dL 07/15/2017 5:15 PM EARLY CHILDHOOD EDUCATOR AIDE [facility] Comment: Above desirable: ??100-129 mg/dl Borderline High: ??130-159 mg/dL High: ? 160-189 mg/dL Very high: ? >189 mg/dl Non HDL Cholesterol 134(H) <130 mg/dL 07/15/2017 5:15 PM EARLY CHILDHOOD EDUCATOR AIDE [facility] Comment: Above Desirable: ??130-159 mg/dl Borderline high: ??160-189 mg/dl High: ? 190-219 mg/dl Very high: ? >219 mg/dl Blood specimen (specimen) 07/14/2017 8:11 AM EARLY CHILDHOOD EDUCATOR AIDE 07/14/2017 8:16 AM EARLY CHILDHOOD EDUCATOR AIDE us Sarabjit Tenorio MD LAB - BLOOD ORDERABLES F inal Result [facility] [address] [place] [address] * COLONOSCOPY (06/08/2014 7:22 AM CDT) COLONOSCOPY [facility] Patient Name: En Zamora ?Procedure Date: [...] ?oxygen saturations were monitored continuously. The ?PCF-H190L [id number] was introduced through the anus ?and advanced [...] history of colonic polyps CPT copyright 2013 [employer] [employer]. All rights reserved. The codes documented in this report are preliminary and upon clinical reimbursement specialist review may be revised to meet current compliance requirements. Electronically signed by Jose Lopez MD __ Jose Lopez MD 06/08/2014 7:48 AM I was physically present for the entire viewing portion of the exam. Number of Addenda: 0 Note Initiated On: 06/08/2014 7:22 AM MRN: ?[id number] Procedure Date: ? 06/08/2014 7:22:44 AM Scope Withdrawal Time: 0 hours 6 minutes 14 seconds Total Procedure Duration: 0 hours 19 minutes 0 seconds Scope In: 7:23:18 AM Scope Out: 7:42:18 AM RADIOLOGY RESULTS 06/08/2014 7:22 AM CDT us Sarabjit Tenorio MD PROCEDURES Final Re sult RADIOLOGY RESULTS from Last 3 Months or Most Recently Relevant to Health Maintenance Insurance [facility] MEDICARE ADVANTAGE Care Teams Transit Mechanic Relationship Specialty Start Date End Date Sarabjit Tenorio MD PCP - General Family Practice 04/18/14 Melita Griffiths DPM, Podiatry/Foot and Ankle Surgery [address] [place] [address] Assigned Musculoskeletal Provider 12/14/23
--- OUTSIDE RECORDS SUMMARY | 2024-06-29 07:17 | XMS_ITS | Encounter Summary ---
Author Organization [place] Address [address] [place] [address]. 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
--- NOTE | 2024-06-29 08:42 | P.ANES_ITS ---
Anesthesia Charges Start Date/Time Anesthesia Start Date: 06/29/24 Anesthesia Start Time: 08:04 Stop Date/Time Anesthesia Stop Date: 06/29/24 Anesthesia Stop Time: 08:40 Summary Extremes of Age - Over 70 or under 1: PATTERN HAND
== END 2024-06-29 07:15 | disposition home or self-care (01) ==
LOC: OP CLINIC 07:15
PROVIDERS: PCP Physician Assistant Medical; Visit Provider Surgery
DX: Z12.11 Encounter for screening for malignant neoplasm of colon (principal); Z86.0100 Personal history of colon polyps, unspecified; D12.3 Benign neoplasm of transverse colon; D12.5 Benign neoplasm of sigmoid colon; K64.8 Other hemorrhoids
CPT/HCPCS: 00811; 45385; 88305; 99100; J2704

== ENCOUNTER 2024-09-12 09:19 | Outpatient (CLI) | payer MEDICARE, SELFPAY | END 2024-09-12 09:20 | disposition home or self-care (01) | LOC: NFLDREF 09-13 00:40 | PROVIDERS: PCP Physician Assistant Medical; Referring Provider Physician Assistant Medical; Visit Provider Physician Assistant Medical | DX: E05.90 Thyrotoxicosis, unspecified without thyrotoxic crisis or storm (principal); R97.20 Elevated prostate specific antigen [PSA]; Z12.5 Encounter for screening for malignant neoplasm of prostate | CPT/HCPCS: 84443; G0103 ==

== ENCOUNTER 2024-10-19 14:40 | Outpatient (CLI) | payer MEDICARE, SELFPAY | END 2024-10-19 14:41 | disposition home or self-care (01) | LOC: NFLDREF 10-22 05:17 | PROVIDERS: PCP Physician Assistant Medical; Referring Provider Physician Assistant Medical; Visit Provider Physician Assistant Medical | DX: E05.90 Thyrotoxicosis, unspecified without thyrotoxic crisis or storm (principal); E78.5 Hyperlipidemia, unspecified; G25.81 Restless legs syndrome; R79.0 Abnormal level of blood mineral | CPT/HCPCS: 80053; 80061; 82306; 82607; 82728; 84443 ==

== ENCOUNTER 2024-10-31 15:45 | Outpatient (CLI) | payer MEDICARE, SELFPAY ==
--- NOTE | 2024-10-31 16:45 | CRLHL7_ITS ---
For Patients: As a result of the Century Cures Act, medical imaging exams and procedure reports are released immediately into your electronic medical record. You may view this report before your referring provider. If you have questions, please contact your health care provider. Indication: Bilateral foot pain Comparison: None Technique: Routine duplex arterial examination of bilateral lower extremities including 2D and spectral analysis, and color Doppler imaging was performed. Findings: In the right lower extremity there are multiphasic waveforms in the common femoral artery, profunda femoral artery, superficial femoral artery, and popliteal artery. Similarly, at the ankle, there are multiphasic waveforms in the posterior tibial artery and anterior tibial artery monophasic flow within the dorsalis pedis artery. No elevated velocities. In the left lower extremity there are multiphasic waveforms within the common femoral artery, profunda femoral artery, superficial femoral artery, and popliteal artery. Similarly, at the ankle, there are multiphasic waveforms in the posterior tibial artery, and dorsalis pedis arteries. No elevated velocities. Mild atherosclerotic changes are present bilaterally. Impression: No evidence of stenosis. Dictated by Jj Purcell MD @ 11/01/2024 12:54:08 PM (Electronically Signed)
== END 2024-10-31 15:46 | disposition home or self-care (01) ==
PROVIDERS: PCP Physician Assistant Medical; Visit Provider Physician Assistant Medical
DX: M54.50 Low back pain, unspecified (principal); M48.56XA Collapsed vertebra, not elsewhere classified, lumbar region, initial encounter for fracture; M51.87 Other intervertebral disc disorders, lumbosacral region; M79.671 Pain in right foot; M79.672 Pain in left foot; G60.9 Hereditary and idiopathic neuropathy, unspecified; G25.81 Restless legs syndrome; G89.29 Other chronic pain
CPT/HCPCS: 72100; 93926

== ENCOUNTER 2024-11-07 06:59 | Outpatient (CLI) | payer MEDICARE, SELFPAY ==
--- NOTE | 2024-11-07 07:15 | CRLHL7_ITS ---
For Patients: As a result of the Century Cures Act, medical imaging exams and procedure reports are released immediately into your electronic medical record. You may view this report before your referring provider. If you have questions, please contact your health care provider. INDICATION: Low back pain. COMPARISON: 10/31/2024. Technique Sagittal T1, T2, and STIR sequences. Axial T1 and T2 weighted sequences. FINDINGS: Normal vertebral body alignment. No fractures. No vertebral body loss of height. No spondylolisthesis. No ligamentous injury. No suspicious osseous lesions. Normal conus terminates at L1-2. T12-L1 L1-2: No spinal canal or neural foraminal narrowing. L2-3: No spinal canal neural foraminal narrowing. L3-4: Disc degeneration posterior disc bulge. Mild narrowing of spinal canal. Mild narrowing of the left neural foramen. No narrowing of the right neural foramen. Mild facet arthropathy. L4-5: Disc degeneration and posterior disc bulge. Mild narrowing of spinal canal. No neural foraminal narrowing. Mild facet arthropathy. L5-S1: Disc degeneration loss disc height. Posterior disc bulge. No narrowing of spinal canal. No impingement of the traversing S1 nerve roots. No neural foraminal narrowing. Normal visualized SI joints. Normal paraspinal soft tissues. Partially visualized horseshoe kidney IMPRESSION: 1. Normal alignment. No fractures. 2. Lumbar spondylosis 3. At L3-4, mild narrowing of the spinal canal left neural foramina 4. At L4-5, mild narrowing of the spinal canal 5. At L5-S1, disc degeneration and posterior disc bulge. No narrowing of the spinal canal. No neural foraminal narrowing. 6. Partially visualized horseshoe kidney. This may be better evaluated with non urgent CT or ultrasound. Dictated by Angel Santiago MD @ 11/07/2024 10:14:48 AM (Electronically Signed)
== END 2024-11-07 07:00 | disposition home or self-care (01) ==
LOC: MRI 07:00
PROVIDERS: PCP Physician Assistant Medical; Visit Provider Physician Assistant Medical
DX: M54.50 Low back pain, unspecified (principal); M47.896 Other spondylosis, lumbar region; M51.26 Other intervertebral disc displacement, lumbar region; M51.379 Other intervertebral disc degeneration, lumbosacral region without mention of lumbar back pain or lower extremity pain
CPT/HCPCS: 72148

== ENCOUNTER 2024-12-04 12:49 | Outpatient (CLI) | payer MEDICARE, SELFPAY | END 2024-12-04 12:50 | disposition home or self-care (01) | LOC: US 12:50 | PROVIDERS: PCP Physician Assistant Medical; Visit Provider Physician Assistant Medical | DX: M79.671 Pain in right foot (principal); M79.672 Pain in left foot; R20.0 Anesthesia of skin; I73.9 Peripheral vascular disease, unspecified | CPT/HCPCS: 93922 ==

== ENCOUNTER 2025-01-25 10:05 | Outpatient (CLI) | payer MEDICARE, SELFPAY | END 2025-01-25 10:06 | disposition home or self-care (01) | LOC: NFLDREF 01-27 04:43 | PROVIDERS: PCP Physician Assistant Medical; Referring Provider Physician Assistant Medical; Visit Provider Physician Assistant Medical | DX: R79.0 Abnormal level of blood mineral (principal) | CPT/HCPCS: 82728 ==

== ENCOUNTER 2025-04-10 12:17 | Outpatient (CLI) | payer MEDICARE, SELFPAY ==
--- NOTE | 2025-04-17 12:25 | W.PM.SLEEP ---
Sleep Study Details Details Interpreting Provider: Ted Date of Sleep Study: 04/10/25 Sleep Study Details: STUDY TYPE:? Home unattended ? BMI:? 24.78 ORDERING PROVIDER:? Ted INDICATION:? Concern about sleep apnea ? SLEEP SUMMARY:? 136 minutes monitored RESPIRATORY SUMMARY:? AHI 23.4 per CMS guideline, 33.5 per rule 1A Low oxygen 82 10.3% of study oxygen less than 90% Snoring 0.2% PERIODIC LIMB MOVEMENTS OF SLEEP:? Not recorded CARDIAC:? Range 43-59, mean 50.6 beats per minute IMPRESSION:? Moderate obstructive sleep apnea. Approximately 1/4 of the apneas were central RECOMMENDATION: In-lab titration. If AutoSet CPAP is chosen would recommend very close follow-up.
== END 2025-04-10 12:18 | disposition home or self-care (01) ==
LOC: SLEEP 12:18
PROVIDERS: PCP Physician Assistant Medical; Visit Provider Otolaryngology
DX: G47.33 Obstructive sleep apnea (adult) (pediatric) (principal)
CPT/HCPCS: 95806

== ENCOUNTER 2025-05-11 15:06 | Emergency (ER) | payer MEDICARE, SELFPAY ==
--- OUTSIDE RECORDS SUMMARY | 2025-05-11 15:07 | XMS_ITS | Clinical Summary ---
Author Organization [facility] Address [address] [facility] [place] [address] Care Team Providers Care Canadian Bacon Tier Name Role Phone Sarabjit Tenorio MD Primary Care Provider [phone] Melita GriffithsM, Podiatry /Foot and Ankle Surgery Unavailable Allergies [...] Active vitamin D3 (CHOLECALCIFERO L) 1.25 MG (43188 UT) capsule Take 50,000 Units by mouth every 7 days Active Active Problems Problem Noted Date Diagnosed Date Vasomotor rhinitis 02/26/2020 CRF (chronic renal failure), stage 2 (mild) 06/24 CARDIOVASCULAR SCREENING; LDL GOAL LESS THAN 130 04/18/2014 Resolved Problems Problem Noted Date Diagnosed Date Resolved Date Tobacco use disorder 04/18/2014 018 Immunizations Immunization Administration Dates Next Due Influenza (High Dose) Trival ent,PF (Fluzone) 06/07/2018 Influenza (IIV3) PF 06/07/2013, 2,05/28/2011,2009,07/09/2008 Influenza (prior to 2023) 07/24/2009 Influenza Vaccine >6 months,quad, PF 06/18/2015 Influenza Vaccine, 6+MO IM (QUADRIVALENT W/PRESERVATIVES) 05/30/2017 Pneumococcal 23 valent 05/16/2018 TDAP Vaccine (Adacel) [...] on file Legal Sex Male 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 Gender Identity Not on file Sexual Orientation Not on file Last Filed Vital Signs Vital Sign Reading Time Taken Comments Blood Pressure 124/78 11/24/2023 2:15 PM CDT Pulse 86 02/26/2020 7:13 PM CDT Temperature 36.4 C (97.6 F) 02/26/2020 7:13 PM CDT Respiratory Rate 16 [...] URINALYSIS 1951 LUNG CANCER SCREENING 2002 ZOSTER VACCINE (1 of 2) 2002 LIPID 07/14/2018 07/14/2017, 04/18/2014 MEDICARE ANNUAL WELLNESS VISIT 07/14/2018 07/14/2017, 04/18/2014 BMP 04/13/2019 04/13/2018, 06/24, 04/18/2014 FALL RISK ASSESSMENT 05/16/2019 05/16/2018 DIABETES SCREENING 04/13/2021 04/13/2018, 1 09/13/2016, 04/18/2014 COLONOSCOPY 06/08/2024 06/08/2014, 06/08/2014 COLORECTAL CANCER SCREENING 06/08/2024 PHQ-2 (once per calendar year) 2024 11/24/2023, 07/28/2017, 07/14/2017, Additional history exists COVID-19 VACCINE ( season) 2025 06/20/2023, 05/14/2022, 11/30/2021, Additional history exists INFLUENZA VACCINE (#1) 2025 , 06/05/2022, 06/05/2022, Additional history exists RSV VACCINE (1 - 1-dose 75+ series) 2027 DTAP/TDAP/TD VACCINE (3 - Td or Tdap) 06/20/2032 06/20/2022, 04/18/2014, 02/04/1999, Additional history exists HEPATITIS C SCREENING Completed 07/14/2017 PNEUMOCOCCAL VACCINE 50+ YEARS Completed 04/22/2022, 05/16/2018 HPV VACCINE (No Doses Required) Completed MENINGITIS VACCINE Aged Out No longer eligible based on patient's age to complete this topic Procedures Procedure Name Priority Date/Time Associated Diagnosis Comments COMPREHENSIVE METABOLIC PANEL Routine 04/13/2018 8:26 AM CDT Dysgeusia Flatulence, eructation, and gas pain HEPATITIS C SCREEN REFLEX TO HCV RNA QUANT AND GENOTYPE Routine 07/14/2017 8:11 AM NEUROLOGY TECH Need for hepatitis C screening test LIPID REFLEX TO DIRECT LDL PANEL Routine 07/14/2017 8:11 AM NEUROLOGY TECH Routine general medical examination at a health care facility COLONOSCOPY Routine 06/08/2014 7:22 AM CDT from Last 3 Months or Most Recently Relevant to Health Maintenance Results * (ABNORMAL) Comprehensive metabolic panel (04/13/2018 8:26 AM CDT) Sodium 136 133 - 144 mmol/L 04/13/2018 5:39 PM CDT [facility] Potassium 4.1 3.4 - 5.3 mmol/L 04/13/2018 5:39 PM CDT [facility] Chloride 104 94 - 109 mmol/L 04/13/2018 5:39 PM CDT [facility] Carbon Dioxide 26 20 - 32 mmol/L 04/13/2018 5:39 PM CDT [facility] Anion Gap 6 3 - 14 mmol/L 04/13/2018 5:39 PM CDT [facility] Glucose 102(H) 70 - 99 mg/dL 04/13/2018 5:39 PM T [facility] Urea Nitrogen 15 7 - 30 mg/dL 04/13/2018 5:39 PM T [facility] Creatinine 1.32(H) 0.66 - 1.25 mg/dL 04/13/2018 5:39 PM CDT [facility] GFR Estimate 54(L) >60 mL/min/1. 7m2 04/13/2018 5:39 PM CDT [facility] Comment:Non GFR Calc GFR Estimate If Black 66 >60 mL/min/1. 7m2 04/13/2018 5:39 PM CDT [facility] Comment: GFR Calc Calcium 8.9 8.5 - 10.1 mg/dL 04/13/2018 5:39 PM CDT [facility] Bilirubin Total 0.6 0.2 - 1.3 mg/dL 04/13/2018 5:39 PM CDT [facility] Albumin 4.0 3.4 - 5.0 g/dL 04/13/2018 5:39 PM CDT [facility] Protein Total 7.1 6.8 - 8.8 g/dL 04/13/2018 5:39 PM CDT [facility] Alkaline Phosphatase 83 40 - 150 U/L 04/13/2018 5:39 PM CDT [facility] ALT 23 0 - 70 U/L 04/13/2018 5:39 PM CDT [facility] AST 19 0 - 45 U/L 04/13/2018 5:39 PM CDT [facility] Blood specimen (specimen) 04/13/2018 8:26 AM CDT 04/13/2018 8:31 AM CDT us Sarabjit Tenorio MD LAB - BLOOD ORDERABLES Final Res ult Performing Organization Address City/[facility]/ZIP Co de Phone Number [facility] [address], [place] [address] * Hepatitis C Screen Reflex to HCV RNA Quant and Genotype (07/14/2017 8:11 AM NEUROLOGY TECH) Pathologist [facility] Hepatitis C Antibody Nonreactive NR^Nonre active 07/16/2017 10:35 AM NEUROLOGY TECH [facility] Comment: Assay performance characteristics have not been established for newborns, infants, and children Blood specimen (specimen) 07/14/2017 8:11 AM NEUROLOGY TECH 07/14/2017 8:16 AM NEUROLOGY TECH us Sarabjit Tenorio MD LAB - BLOOD ORDERABLES Final Res ult [facility] [address] [place] [address] * (ABNORMAL) Lipid panel reflex to direct LDL Fasting (07/14/2017 8:11 AM NEUROLOGY TECH) Cholesterol 213(H) <200 mg/dL 07/15/2017 5:15 PM NEUROLOGY TECH [facility] Comment:Desirable: <200 mg/d l Triglycerides 92 <150 mg/dL 07/15/2017 5:15 PM NEUROLOGY TECH [facility] Comment:Fasting specimen HDL Cholesterol 79 >39 mg/dL 7 5:15 PM NEUROLOGY TECH [facility] LDL Cholesterol Calculated 116(H) <100 mg/dL 07/15/2017 5:15 PM NEUROLOGY TECH [facility] Comment: Above desirable: 100-129 mg/dl Borderline High: 130-159 mg/dL High: 160-189 mg/dL Very high: >189 mg/dl Non HDL Cholesterol 134(H) <130 mg/dL 07/15/2017 5:15 PM NEUROLOGY TECH [facility] Comment: Above Desirable: 130-159 mg/dl Borderline high: 160-189 mg/dl High: 190-219 mg/dl Very high: >219 mg/dl Blood specimen (specimen) 07/14/2017 8:11 AM NEUROLOGY TECH 07/14/2017 8:16 AM NEUROLOGY TECH us Sarabjit Tenorio MD LAB - BLOOD ORDERABLES Final Res ult [facility] [address] [place], [place] [address] * COLONOSCOPY (06/08/2014 7:22 AM CDT) COLONOSCOPY [facility] Patient Name: En Tange Procedure Date: 06/08/2014 7:22 AM Date of : 1950 Admit Type: Outpatient Age: 63 Gender: Male Attending MD: Jose Lopez MD Instrument Name: [id number] Procedure: Colonoscopy Indications: High risk colon cancer surveillance: Personal history of colonic polyps Providers: Jose Lopez MD Referring MD: Sarabjit Tenorio MD Medicines: Midazolam 2 mg IV, Fentanyl 100 micrograms IV Complications: No immediate complications. Procedure: Pre-Anesthesia Assessment: - Prior to the procedure, a History and Physical was performed, and patient medications and allergies were reviewed. The patient is competent. The risks and benefits of the procedure and the sedation options and risks were discussed with the patient. All questions were answered and informed consent was obtained. Patient identification and proposed procedure were verified by the physician in the procedure room. Mental Status Examination: alert and oriented. Airway Examination: normal oropharyngeal airway and neck mobility. Respiratory Examination: clear to auscultation. CV Examination: normal. Prophylactic Antibiotics: The patient does not require prophylactic antibiotics. Prior Anticoagulants: The patient has taken aspirin, last dose was 5 days prior to procedure. ASA Grade Assessment: II - A patient with mild systemic disease. After reviewing the risks and benefits, the patient was deemed in satisfactory condition to undergo the procedure. The anesthesia plan was to use moderate sedation / analgesia (conscious sedation). Immediately prior to administration of medications, the patient was re-assessed for adequacy to receive sedatives. The heart rate, respiratory rate, oxygen saturations, blood pressure, adequacy of pulmonary ventilation, and response to care were monitored throughout the procedure. The physical status of the patient was re-assessed after the procedure. After obtaining informed consent, the colonoscope was passed under direct vision. Throughout the procedure, the patient's blood pressure, pulse, and oxygen saturations were monitored continuously. The [id number] was introduced through the anus and advanced to the cecum, identified by appendiceal orifice and ileocecal valve. The colonoscopy was performed without difficulty. The patient tolerated the procedure well. The quality of the bowel preparation was good. Findings: The perianal and digital rectal examinations were normal. The entire examined colon appeared normal on direct and retroflexion views. Impression: - The entire examined colon is normal on direct and retroflexion views. Recommendation: - Repeat colonoscopy in 5 years for surveillance. Procedure Code(s): --- Professional --- G0105, Colorectal cancer screening; colonoscopy on individual at high risk Diagnosis Code(s): --- Professional --- V12.72, Personal history of colonic polyps CPT copyright 2013 [employer]. All rights reserved. The codes documented in this report are preliminary and upon manager administration review may be revised to meet current compliance requirements. Electronically signed by Jose Lopez MD __ Jose Lopez MD 06/08/2014 7:48 AM I was physically present for the entire viewing portion of the exam. Number of Addenda: 0 Note Initiated On: 06/08/2014 7:22 AM Procedure Date: 06/08/2014 7:22:44 AM Scope Withdrawal Time: 0 hours 6 minutes 14 seconds Total Procedure Duration: 0 hours 19 minutes 0 seconds Scope In: 7:23:18 AM Scope Out: 7:42:18 AM RADIOLOGY RESULTS 06/08/2014 7:22 AM CDT Sarabjit Tenorio MD PROCEDURES Final Result RADIOLOGY RESULTS from Last 3 Months or Most Recently Relevant to Health Maintenance Insurance [facility] MEDICARE ADVANTAGE BCBS MEDICARE ADVANTAGE Care Teams Canadian Bacon Tier Relationship Specialty Start Date End Date Sarabjit Tenorio MD PCP - General Family Practice 04/18/14 Tunde, Melita J, DPM, Podiatry/Foot and Ankle Surgery [address] [place] [address] [place] [id number] Assigned Musculoskeletal Provider 12/14/23
--- OUTSIDE RECORDS SUMMARY | 2025-05-11 15:07 | XMS_ITS | Encounter Summary ---
Author Organization [facility] Address [address] [place] [address] Care Team Providers Care Structural Steel Equipment Erector Name Role Phone Javier Pacheco Primary Care Provider [phone] Encounter Details Date Type Department Care Team (Late st Contact Info) Description 02/01/2025 Results Follow-Up [facility] - [address] [place] [phone] Yimi Weaver MD [address] [place] [address] [place] [id number] MRI SPINE LUMBAR W/O CON Social History Tobacco Use Types Packs/Day Years Used Date Smoking Tobacco: Former Cigarettes Smokeless Tobacco: Never Alcohol Use Standard Drinks/Week Comments Yes 0 (1 standard drink = 0.6 oz pur e alcohol) rarely Sex and Gender Information Value Date Recorded Sex Assigned at Not on file Legal Sex Male 3:33 PM SCREENING SPECIALIST Gender Identity Not on file Sexual Orientation Not on file documented as of this encounter Plan of Treatment Not on file documented as of this encounter Visit Diagnoses Not on filedocumented in this encounter Care Teams Structural Steel Equipment Erector Relationship Specialty Start Date End Date Javier Pacheco PA [address] [place] [id number] PCP - General 09/04/24 documented as of this encounter
--- OUTSIDE RECORDS SUMMARY | 2025-05-11 15:07 | XMS_ITS | Encounter Summary ---
Author Organization [facility] Address [address] [place] [address]. 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
--- OUTSIDE RECORDS SUMMARY | 2025-05-11 15:07 | XMS_ITS | Clinical Summary ---
Author Organization [facility] Address [address] , [address] [place] [address] Phone Care Team Providers Care Organizational Effectiveness Director Name Role Phone Deysi Penaloza Conditions or Problems Problem Name Problem Code Onset Date Status Entry Date Provider Comment Standard Description Annotate Dementia in conditions classified elsewhere without behavioral disturbance [id number] (SNOMED CT) 08/28 Active 09/01 Nicci Campeau Dementia associated with another disease Alzheimer's disease, early [id number] (SNOMED CT) 09/13 Active 09/13 Thad Betancourt MD Primary degenerative dementia of the Alzheimer type, presenile onset, uncomplicated Family Hx of Alzheimers [id number] (SNOMED CT) 10/16 Active 10/16 Ml Brush RN FH: Alzheimer's disease Mild cognitive impairment [id number] (SNOMED CT) 08/31 Active 08/31 Dwight Dhillon MD Mild neurocognitive disorder Medications Medication Instructions Start Date Stop Date Generic Name [facility] Provider Vitamin B12 1000 mcg Vitamin B12 John Torrez MD alpha lipoid acid alpha lipoid acid John Torrez MD DONEPEZIL HCL 10 MG TABS 1 tablet by mouth at bedtime take 1 tab (10 mg) by mouth at bedtime. donepezil [id number] John Torrez MD GABAPENTIN 100 MG CAPS Take 1 capsule by mouth at bedtime May take extra 100 mg per night with 300 mg at night as needed for nocturnal pain. May increase by 100 mg per night up to total of 900 mg at night as needed. gabapentin [id number] John Torrez MD ATORVASTATIN CALCIUM 10 MG TABS 1 tab daily 03/13 atorvastatin [id number] [facility] Namenda 5 mg tablet 2 tablet by mouth twice a day week 1-2: take 1 tab q pm. week 3-4: take 1 tab twice a day. week 5-6: take 1 tab q am and 2 tab q pm. week 7 onward: take 2 tab twice a day 03/13 memantine [id number] [facility] PRAVASTATIN SODIUM 40 MG TABS 1 tab qhs pravastatin [id number] [facility] FISH OIL 1000 MG CAPS omega 0-mvh-rsx-fish oil [id number] [facility] D-5000 125 MCG (5000 UT) TABS cholecalciferol (vitamin d3) [id number] [facility] MAGNESIUM OXIDE -MG SUPPLEMENT 250 MG TABS magnesium oxide 05712761872 [facility] MEMANTINE HCL 10 MG TABS Take 1 tablet by mouth twice a day memantine [id number] John Torrez MD Namenda 5 mg tablet week 1-2: take 1 tab q pm. week 3-4: take 1 tab twice a day. week 5-6: take 1 tab q am and 2 tab q pm. week 7 onward: take 2 tab twice a day 09/13 memantine [id number] Thad Betancourt MD Namenda 5 mg tablet 2 tablet by mouth twice a day week 1-2: take 1 tab q pm. week 3-4: take 1 tab twice a day. week 5-6: take 1 tab q am and 2 tab q pm. week 7 onward: take 2 tab twice a day 03/13 memantine [id number] Thad Betancourt MD Namenda 5 mg tablet week 1-2: take 1 tab q pm. week 3-4: take 1 tab twice a day. week 5-6: take 1 tab q am and 2 tab q pm. week 7 onward: take 2 tab twice a day 09/13 memantine [id number] Thad Betancourt MD DONEPEZIL HCL 10 MG TABS take 1 tab (10 mg) by mouth at bedtime. 10/19 donepezil [id number] Thad Betancourt MD GABAPENTIN 100 MG CAPS take 2 pills 1 hour before bed 10/19 gabapentin [id number] Thad Betancourt MD DONEPEZIL HCL 10 MG TABS 1 tablet by mouth at bedtime take 1 tab (10 mg) by mouth at bedtime. 08/28 donepezil [id number] Thad Betancourt MD GABAPENTIN 300 MG CAPS 1 capsule by mouth at bedtime gabapentin [id number] Thad Betancourt MD DONEPEZIL HCL 10 MG TABS take 1 tab (10 mg) by mouth at bedtime. 10/19 donepezil [id number] Alaina Matias PA-C ASPIRIN EC 81 MG TBEC 1 tab daily aspirin [id number] Alaina Matias PA-C ATORVASTATIN CALCIUM 10 MG TABS 1 tab daily 03/13 atorvastatin [id number] Alaina Matias PA-C GABAPENTIN 100 MG CAPS take 1 - 2 pills 1 hour before bed 10/05 gabapentin [id number] Dwight Dhillon MD GABAPENTIN 100 MG CAPS take 2 pills 1 hour before bed 03/02 gabapentin [id number] Dwight Dhillon MD GABAPENTIN 100 MG CAPS take 1 - 2 pills 1 hour before bed 03/02 gabapentin [id number] Dwight Dhillon MD Medications Administered No information available. Allergies, Adverse Reactions, Alerts Observed no known allergies at Results Date Name Value Unit Range Flag Description Replaced Document: (P) LYME DISEASE AB W/REFL TO BLOT (IGG, IGM), TSH, VITAMIN ... [id number] * GE use only - for Link[employer]ic import when terms are not otherwise specified VIT B1 PLSM * ug/L Vitamin B 1 (thiamine), plasma B-12 442 pg/mL 200-1100 N Cobalamin (Vitamin B12) [Mass/volume] in Serum or Plasma TSH 1.09 u[iU]/mL 0.40-4.50 N Thyrotropi n [Units/volume] in Serum or Plasma LYME DIS AB * Borrelia burgdorferi.VlsE1 +pepC10 Ab [Units/volume] in Serum by Immunoassay Office Visit: Office Visit f ax DEMENTIA2 Assessment of cognition performed and results reviewed. Total score [MMSE] [id number] Normal Total scor e [MoCA] MMSE SCORE 28 Total scor e [MMSE] Office Visit: Office Visit T OC from Dr. Betancourt fax MEDS REVIEW Done Documenta tion of current medications (procedure) Internal Other: Authorizatio n - OBS AUTHBENEFIT Yes Authoriza tion: Assignment of Benefits and Payment Agreement [email or web address] Yes Authorizat ion: Authorization for [facility] to leave messages, voicemail, send text messages, send emails AUTHRELHCARE Yes Authoriz ation: Release/Retrieval of Information to/from Healthcare Facilities, Pharmacy Benefit Payers and Providers ROIAUTHOTHER Yes Authoriz ation: Release of Information - Authorize Others/Insurance - Payment and Healthcare Operations [email or web address] Yes Authoriza tion: Release of Information - Authorize [facility] - Payment and Healthcare Operations AUTHPRIVPRAC Yes Authoriz ation: Notice of privacy practices HIECONSENT Yes Consent To Release information to the Health Information Exchange (HIE) Internal Other: Verbal Autho rization/Emergency Contact - OBS VERBAL_EMER Done Verbal authorization and emergency contact Plan of Care Type Date Detail Pending order Alzheimer Treatm ent Education with RADHA Pending order Alzheimer Treatm ent Education with RADHA Pending Order exclud ed from report: Pending order EMG bilateral lo w ext Pending order EMG bilateral lo w ext Pending Order exclud ed from report: Pending order MRI-Brain W/O Pending order Patient Instruct ions Pending order Follow up Pending order Follow up in cli [facility]air[facility] or telemedicine Pending order Follow up with N eurologist or RADHA Pending order Driving Evaluati on Pending order Driving Evaluati on Pending order Other Order Pending order Patient Instruct ions Pending order Neuropsychology Evaluation Pending order Other Test Pending order Other Test Pending Order exclud ed from report: Pending order Other Order Pending Order exclud ed from report: Pending order Other Order Pending order Patient Instruct ions Pending order Driving Evaluati on Pending order Neuropsychology Evaluation Pending order MRI-Brain W/O Pending order Lyme Total Ab w/ Reflex (reflex to Western Blot) Pending order TSH Pending order Vitamin B1 (Thia mine) - fasting after midnight Pending order Vitamin B12 Pending order Other Lab Pending order Other Lab Procedures Code Procedure Name Date Entry Date ORDERS Alzheimer Treatment Education with RADHA 20 14/11/06 ORDERS EMG bilateral low ext 08/28 [id number] MRI-Brain W/O CPT-42697 MRI Brain W/O [id number] Documentation of current medicatio ns ORDERS Follow up LOINC 49919-2 MMSE ORDERS Patient Instructions ORDERS Follow up with Neurologist or RADHA LOINC 43473-7 MMSE ORDERS Follow up in clinic or telemedicine 09/13 ORDERS Other Order ORDERS Driving Evaluation 7 LOINC 96950-8 MMSE ORDERS Patient Instructions ORDERS Neuropsychology Evaluation 2 ORDERS Other Test ORDERS Other Order ORDERS Driving Evaluation 6 ORDERS Patient Instructions CPT-63830 Npsy Interview w/Provider - 1st hour 2021 CPT-71667 Npsy Interp/Rpt by Provider - 1st hour 13/08/27 CPT-51980 Npsy Interp/Rpt by Provider - 2 hours 10/04/26 CPT-00196 Npsy Test by Tech (2+ Tests) - 1st 30 min CPT-63389 Npsy Test by Tech (2+ Tests) - 2 hours 13/08/27 ORDERS Neuropsychology Evaluation 2 [id number] MRI-Brain W/O CPT-31472 MRI Brain W/O ORDERS Other Lab ORDERS Vitamin B1 (Thiamine) - fasting after mid night ORDERS Other Lab ORDERS TSH ORDERS Vitamin B12 ORDERS Lyme Total Ab w/Reflex (reflex to Western Blot) Vital Signs Date Name Value Unit Description Heart Rate 66 /min pulse rate Immunizations No information available. Advance Directives No information available.
--- OUTSIDE RECORDS SUMMARY | 2025-05-11 15:07 | XMS_ITS | Clinical Summary ---
Author Organization [facility] Address [address] [place] [id number] Care Team Providers Care Clinical Abstractor Name Role Phone Javier Pacheco Primary Care Provider [phone] Allergies No known active allergies Medications aspirin 81 mg oral enteric coated tablet Active Cholecalciferol , Vitamin D3, 50 mcg (2,000 unit) oral capsule Active cyanocobalamin, vitamin B-12, 1,000 mcg oral Cap Active donepeziL (ARICEPT) 10 mg oral tablet Take 1 tablet (10 mg) by mouth. Active gabapentin (NEURONTIN) 300 mg oral capsule Acti ve gabapentin (NEURONTIN) 100 mg oral capsule 5 Active Melatonin 5 mg oral capsule Active memantine (NAMENDA) 10 mg oral Tab MEMANTINE HCL 10 MG TABS Active Lxaef-1-RXT-EPA -Fish Oil (FISH OIL) 1,000 (120-180) mg oral capsule Active pramipexole (MIRAPEX) 0.5 mg oral tablet Activ e pravastatin (PRAVACHOL) 40 mg oral tablet PRAVASTATIN SODIUM 40 MG TABS 4 Active Active Problems Problem Noted Date Diagnosed Date Alzheimers disease 09/20/2024 Primary degenerative dementi a of the Alzheimer type, presenile onset, uncomplicated 09/13/2023 Family history of Alzheimer's disease 10/16/2022 Memory loss 07/01/2022 Encounters Date Type Department Care Team Description 03/21/2025 4:15 PM CDT Ancillary Procedure [facility] [address] [place] [address] Parkinson's disease without dyskinesia or fluctuating manifestations (HCC) 03/14/2025 Travel from Last 3 Months Immunizations Immunization Administration Dates Next Due Influenza Adjuvanted (Fluad Quadrivalent PF) 06/20/2023,06/05/2022,05/15/2021 Influenza Adjuvanted (Fluad Trivalent PF) 06/05/2024 Influenza high dose (Fluzone Trivalent PF) 06/07/2018 Influenza split virus (Fluzo ne Quadrivalent PF) 06/18/2015 Influenza split virus quadrivalent 05/30/2017 Influenza split virus trivalent 06/07/20 13,05/12/2012,05/28/2011,2009,07/09/2008 Moderna 12+Yrs mRNA Spikevax COVID Vaccine Seasonal 05/11/2024 Pfizer 12+ Yrs Bivalent COVI D Vaccine (sandoval cap) 05/14/2022 Pfizer 12+ Yrs Monovalent CO VID Vaccine (sandoval cap) 11/30/2021 Pfizer 12+ Yrs Monovalent CO VID Vaccine (purple cap) 05/23/2021,11/09/2020,06/07/2018 Pfizer Comirnaty 12+ Yrs COV ID Vaccine Seasonal 06/20/2023 Pneumococcal PCV13 04/22/2022 Pneumococcal PPSV23 05/30/2017 RSV Recombinant PF (Arexvy) 04/11/2024 Td 02/04/1999 Tdap 06/20/2022,04/18/2014 Family History Medical History Relation Comments Alzheimer's Disease Father Stroke Mother Alzheimer's Disease Sister Relation Status Comments Father Mother Sister Social History Tobacco Use Types Packs/Day Years Used Date Smoking Tobacco: Former Cigarettes Smokeless Tobacco: Never Tobacco Cessation:Counseling Given: No Alcohol Use Standard Drinks/Week Comments Yes 0 (1 standard drink = 0.6 oz pur e alcohol) rarely Sex and Gender Information Value Date Recorded Sex Assigned at Not on file Legal Sex Male 3:33 PM [employer] Gender Identity Not on file Sexual Orientation Not on file Last Filed Vital Signs Vital Sign Reading Time Taken Comments Blood Pressure 115/67 05/10/2025 10:07 AM CDT Pulse 46 05/10/2025 10:07 AM CDT Temperature 36.7 C (98 F) 05/10/2025 10:07 AM CDT Respiratory Rate 16 05/10/2025 10:07 AM CDT Oxygen Saturation 95% 05/10/2025 10:07 AM CDT Inhaled Oxygen Concentration - - Weight 87.1 kg (192 lb) 02/07/2025 8:25 AM CDT Height 190.5 cm (6' 3) 02/07/2025 8:25 AM CDT Body Mass Index 24 02/07/2025 8:25 AM CDT Plan of Treatment Health Maintenance Due Date Last Done Comments AAA Ultrasound Screening 1950 Colonoscopy 1950 Hepatitis C Screening 1950 Medicare Wellness Visit 1950 Depression Assessment (PHQ-2) 1951 Yearly Review of HCD 2002 Zoster Vaccine (1 of 2) 2002 COVID-19 Vaccine ( season) 2025 05/11/2024, 06/20/2023, 05/14/2022, Additional history exists Influenza Vaccine (#1) 2025 , 06/20/2023, 06/05/2022, Additional history exists Adult Tetanus Booster 06/20/2032 06/20/2022 , 04/18/2014, 02/04/1999 Pneumococcal 50+ Years Completed , 05/16/2018, 05/30/2017 RSV Vaccines Completed 04/11/2024 Meningococcal B Vaccine Aged Out No l onger eligible based on patient's age to complete this topic Procedures Procedure Name Priority Date/Time Associated Diagnosis Comments MRI BRAIN W/O CON Routine 03/21/2025 4:1 0 PM CDT Parkinson's disease without dyskinesia or fluctuating manifestations (HCC) from Last 3 Months Results * MRI BRAIN W/O CON (03/21/2025 4:10 PM CDT) Anatomical Region Laterality Modality Head Magnetic Resonan ce 03/21/2025 5:15 PM CDT Impressions 03/21/2025 9:28 PM CDT Unchanged exam since January 2025. No new or acute abnormality. 1. Cerebral/cerebellar volume loss has not progressed. 2. Moderate degree of chronic microvascular disease affecting the cerebral white matter similar to before. 3. 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 ARIA FINDINGS PRESENT: NO. Report signed by: Jj Johns MD Narrative 03/21/2025 9:28 PM CDT EXAM: MRI BRAIN WITHOUT CONTRAST, 03/21/2025 CLINICAL DATA: G20.A1 Parkinson's disease without dyskinesia, without mention of fluctuations COMPARISON: 02/01/2025 TECHNIQUE: Sagittal FLAIR T1; axial FLAIR T2, fat-saturated FSE T2, GRE, DWI; coronal FLAIR T2, FSE T2 high-resolution. FINDINGS: The ventricles are stable in size and configuration. Mild cerebral/cerebellar volume loss. There is some hippocampal atrophy on the right. No hydrocephalus. Patchy, spotty, and confluent areas of T2 hyperintense signal are again demonstrated in the cerebral white matter. This has not progressed or otherwise changed. Small chronic infarcts in both sides of the cerebellum were also present before. No acute ischemic stroke. No mass or mass effect. No intracranial hemorrhage. No extra-axial fluid collection or restricted diffusion. Mild inflammatory membrane thickening in the right maxillary sinus and some of the ethmoid air cells. Trace mastoid fluid on the left. Arterial flow voids are maintained. No skull abnormality. Intraocular lens implants on both sides. Procedure Note Jj Johns MD - 03/21/2025 EXAM: MRI BRAIN WITHOUT CONTRAST, 03/21/2025 CLINICAL DATA: G20.A1 Parkinson's disease without dyskinesia, withoutmention of fluctuations COMPARISON: 02/01/2025 TECHNIQUE: Sagittal FLAIR T1; axial FLAIR T2, fat-saturated FSE T2, GRE,DWI; coronal FLAIR T2, FSE T2 high-resolution. FINDINGS: The ventricles are stable in size and configuration. Mildcerebral/cerebellar volume loss. There is some hippocampal atrophy on theright. No hydrocephalus. Patchy, spotty, and confluent areas of T2 hyperintense signal are againdemonstrated in the cerebral white matter. This has not progressed orotherwise changed. Small chronic infarcts in both sides of the cerebellumwere also present before. No acute ischemic stroke. No mass or mass effect. No intracranialhemorrhage. No extra-axial fluid collection or restricted diffusion. Mild inflammatory membrane thickening in the right maxillary sinus andsome of the ethmoid air cells. Trace mastoid fluid on the left. Arterial flow voids are maintained. No skull abnormality. Intraocular lensimplants on both sides. IMPRESSION Unchanged exam since January 2025. No new or acute abnormality. 1. Cerebral/cerebellar volume loss has not progressed. 2. Moderate degree of chronic microvascular disease affecting thecerebral white matter similar to before. 3. 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 ARIA FINDINGS PRESENT: NO. Report signed by: Jj Johns MD us Yimi Weaver MD MRI ORDERABLE Final Re sult from Last 3 Months Insurance [phone] [facility] [place] [address] [facility] MEDICARE ADVANTAGE Care Teams Clinical Abstractor Relationship Specialty Start Date End Date Javier Pacheco PA [address] [place] [id number] PCP - General 09/04/24
[2025-05-11 15:21] VITALS: BP 111/73; PULSE 52; RESP 20; TEMP 36.2; O2SAT 98; BMI 23.7
--- NOTE | 2025-05-11 15:30 | CRLHL7_ITS ---
For Patients: As a result of the Century Cures Act, medical imaging exams and procedure reports are released immediately into your electronic medical record. You may view this report before your referring provider. If you have questions, please contact your health care provider. INDICATION: Fall. Head trauma. TECHNIQUE: CT head without contrast. COMPARISON: None. FINDINGS: Cerebral parenchyma: No evidence of acute territorial infarct. No acute intraparenchymal hemorrhage. No significant mass effect/midline shift. Normal sandoval-white matter differentiation. Extra-axial spaces: No extra-axial collection or hemorrhage. Ventricles: Unremarkable. Calvarium: Intact. Visualized paranasal sinuses/mastoid air cells: Polypoid mucosal thickening of the right maxillary sinus. Posterior fossa: No cerebellar tonsillar herniation. Visualized orbits: Thinning of the bilateral lens. Prominent air adjacent to the left globe, appears to be preseptal. No intraconal hemorrhage or emphysema. IMPRESSION: 1. No evidence of acute intracranial hemorrhage. 2. Prominent air adjacent to the left globe, appears to be preseptal. No intraconal hemorrhage or emphysema. Please note that all CT scans at this facility use dose modulation, iterative reconstruction, and/or weight-based dosing when appropriate to reduce radiation dose to as low as reasonably achievable. Dictated by Marimar Dial MD @ 05/11/2025 4:35:04 PM (Electronically Signed)
--- NOTE | 2025-05-11 15:43 | ED.FALL ---
HPI - Fall General Time Seen by Provider: 15:43 Date Seen: 05/11/25 Chief Complaint: Fall/Minor Trauma Stated Complaint: potential stroke/ brain bleed Time Seen by Provider: 05/11/25 15:42 Source: patient, family and RN notes reviewed Mode of arrival: ambulatory Limitations: no limitations History of Present Illness HPI Narrative: This 74-year-old male presents with his for need of head imaging. En is on an infusion for dementia, Kisunla. He gets this every 4 weeks and his last injection was yesterday morning. Last night at about 2:30 a.m. he got up to go to the bathroom per his , he fell. She got him off the floor and was standing, he fell a 2nd time and she noted some slurred speech. She called his neurologist today and they want to rule out intracranial bleeding and cerebral edema that her a side effect of this medicine. She feels he is back at baseline today. The neurologist requested that he proceed to the ER. He has no pain at this point. His heard him slumped to the ground last night. She went and got him up, got him into the bathroom and he slumped to the ground again. She got him onto the toilet, he just seemed to lean forward and had dysarthric speech. After about 20 minutes he seemed fine. He just slept on the couch last night, she slept in the recliner to make sure she was with him. He woke this morning, got up and seemed normal. He has been normal baseline ever sense. She does note on his MR imaging for his monitoring of his medicine, they did find to areas of prior infarcts in 2 spots on his MRIs. This history is provided by his . They were unaware of any prior strokes. He is noted no chest pain, no palpitations, no fevers or chills. She stated he felt clammy last night. He states all he remembers was feeling the back of his head and neck being wet. He has had no cough or cold symptoms, no other signs or symptoms of infection today. Nothing hurts, no headaches, no other injuries with this fall. Related Data Home Medications ?Medication ?Instructions ?Recorded ?Confirmed acetaminophen 325 mg tablet 325 mg PO ONCE PRN 08/13/22 05/11/25 (Tylenol) memantine 10 mg tablet 10 mg PO BID 01/13/24 05/11/25 cholecalciferol (vitamin D3) 50 5,000 unit PO DAILY 03/06/24 05/11/25 mcg (2,000 unit) capsule magnesium 250 mg tablet 250 mg PO QHS 05/05/24 05/11/25 donanemab-azbt 17.5 mg/mL 700 mg IV Q4W 10/19/24 05/11/25 intravenous solution (Kisunla) Previous Rx's ?Medication ?Instructions ?Recorded mupirocin 2 % topical ointment 1 applic topical BID #22 grams 01/25/24 pramipexole 0.5 mg tablet 0.5 mg PO QHS #90 tabs 06/13/24 pravastatin 40 mg tablet 40 mg PO QPM #90 tabs 06/13/24 donepezil 10 mg tablet 10 mg PO QPM #90 tabs 12/21/24 gabapentin 300 mg capsule 900 mg (3 x 300 mg) PO QDAY #270 02/14/25 caps mirtazapine 7.5 mg tablet 7.5 mg PO QHS #90 tabs 04/17/25 Allergies Allergy/AdvReac Type Severity Reaction Status Date / Time No Known Allergies Allergy Verified 05/11/25 15:19 Review of Systems Status of ROS: Reports: 6 or more systems reviewed and unremarkable except as noted in History and below [facility] Medical History Elevated PSA ?R97.20 - Elevated prostate specific antigen [PSA] (ICD-10) Subclinical hyperthyroidism ?E05.90 - Thyrotoxicosis, unspecified without thyrotoxic crisis or storm (ICD-10) Staph aureus infection ?A49.01 - Methicillin susceptible Staphylococcus aureus infection, unspecified site (ICD-10) Cellulitis of nose, external ?J34.0 - Abscess, furuncle and carbuncle of nose (ICD-10) Carbuncle and furuncle ?L02.92 - Furuncle, unspecified (ICD-10) ?L02.93 - Carbuncle, unspecified (ICD-10) Fall ?W19.XXXA - Unspecified fall, initial encounter (ICD-10) History of depression (08/22/09) ?Z86.59 - Personal history of other mental and behavioral disorders (ICD-10) History of colonic polyps (08/22/09) ?Z86.010 - Personal history of colonic polyps (ICD-10) Surgical History Status post hernia repair (08/22/09) ?Z98.890 - Other specified postprocedural states (ICD-10) ?Z87.19 - Personal history of other diseases of the digestive system (ICD-10) History of colonoscopy with polypectomy ?Z98.890 - Other specified postprocedural states (ICD-10) ?Z86.010 - Personal history of colonic polyps (ICD-10) Family History Sister Alzheimers disease Father Alzheimers disease Prostate cancer Brother Colon cancer Leukemia Other High blood pressure Stroke Social History Narrative: does not use illicit drugs former smoker 08/31/2007 has 2 children -Araceli Vasquez rarely consumes alcohol Smoking Status: Former smoker What tobacco products do you use: cigarettes Smoking quit date/years: >15 years ago Do you use any of these nicotine containing products: None Second hand tobacco smoke exposure: No How often do you have a drink containing alcohol: monthly or less How often do you have six or more drinks on one occasion: Never AUDIT-C Alcohol total score: 1 Non-prescribed substance use: denies use Caffeine: No service: No Exam Const: Vital Signs, click to edit/add: Vital Signs - 24 hr 05/11/25 15:21 Temperature 97.1 F L Pulse Rate [Pulse Oximeter] 52 L Respiratory Rate 20 Blood Pressure [Ri ght Upper Arm] 111/73 Pulse Oximetry 98 Oxygen Delivery Me thod Room Air This 74-year-old male is resting in the bed, sing exam room 6. Will open his eyes. He is alert, interactive, no apparent distress, following all commands. Speech is normal and succinct. Pupils equal round reactive, symmetrical facial function. Neck is supple, no jugular venous tension, no adenopathy or masses. Lungs are clear, good air entry, wheeze or crackles, no tachypnea, no accessory muscle use. CV regular, no murmur, normal S1-S2. Abdomen soft, nontender, nondistended. He ambulated in. He has normal sensation throughout. Strength is 5/5 and symmetric in upper extremities. Normal rapid alternating finger movements. Again his gait was normal. No tremors or dysmetria noted. Gait not ataxic. Documenting provider has reviewed patient's vital signs: yes Course Course ED Course: We will be ordering a noncontrast head CT to further evaluate this. Hopefully with him being at baseline, he will not have any side effects or complications. Head CT imaging will certainly elucidate any bleeding or significant brain swelling. Did discuss with them medical workup, doing some basic labs. Doubt there is any infectious etiology. Did discuss cardiac arrhythmias, it ischemic disease. It is possible that he had a TIA. Reevaluation(s) Time of Reevaluation #1: 16:47 Reevaluation #1: Have reviewed that his head CT is not showing any acute pathology. They are inclined to just watch. We have discussed the importance of follow-up if he should have any further hint of her recurrent spell. We did discuss the possibility of this being a TIA. They have a follow-up with their neurologist on Wednesday. He has been taken off his aspirin and his fish oil in conjunction with this injectable medicine to prevent bleeding. I did review if this were a TIA, aspirin would certainly be recommended, they are very reluctant to even consider this without talking to their neurologist. They do go to [facility]. They are declining labs, EKG, further workup. Did discuss doing CT angiography of head neck as well, they are declining. We have discussed the rationale of all of this. This happened overnight and he has been back to baseline all day. They do understand to return or call 911 with any recurrent symptoms. They declined me calling and talking to [facility] at [place]. Vital Signs Vital signs: Initial Vital Signs Temperature 97.1 F L 05/11/25 15:21 Temperature Source Temporal Artery Scan 05/11/25 15:21 Pulse Rate 52 L 05/11/25 15:21 Respiratory Rate 20 05/11/25 15:21 Blood Pressure 111/73 05/11/25 15:21 Blood Pressure Mean 85 05/11/25 15:21 Pulse Oximetry 98 05/11/25 15:21 Oxygen Delivery Method Room Air 05/11/25 15:21 Vital Signs Temperature 97.1 F L 05/11/25 15:21 Pulse Rate 52 L 05/11/25 15:21 Respiratory Rate 20 05/11/25 15:21 Blood Pressure 111/73 05/11/25 15:21 Pulse Oximetry 98 05/11/25 15:21 Oxygen Delivery Method Room Air 05/11/25 15:21 Temperature 97.1 F L 05/11/25 15:21 Pulse Rate 52 L 05/11/25 15:21 Respiratory Rate 20 05/11/25 15:21 Blood Pressure 111/73 05/11/25 15:21 Pulse Oximetry 98 05/11/25 15:21 Oxygen Delivery Method Room Air 05/11/25 15:21 MDM - Fall Imaging Data CT scan - head: Attestation: I have reviewed the pertinent imaging results. Radiologist's impression: Patient: EN LINDO Facility:?[facility] Patient ID:?[id number] Site Patient ID:?[id number]. Site :?[id number] Study:?CT-Head WITHOUT-05/11/2025 3:47:37 PM Ordering Physician:?Radha Rausch Final Report: INDICATION: Fall. Head trauma. TECHNIQUE: CT head without contrast. COMPARISON: None. FINDINGS: Cerebral parenchyma: No evidence of acute territorial infarct. No acute intraparenchymal hemorrhage. No significant mass effect/midline shift. Normal sandoval-white matter differentiation. Extra-axial spaces: No extra-axial collection or hemorrhage. Ventricles: Unremarkable. Calvarium: Intact. Visualized paranasal sinuses/mastoid air cells: Polypoid mucosal thickening of the right maxillary sinus. Posterior fossa: No cerebellar tonsillar herniation. Visualized orbits: Thinning of the bilateral lens. Prominent air adjacent to the left globe, appears to be preseptal. No intraconal hemorrhage or emphysema. IMPRESSION: 1. No evidence of acute intracranial hemorrhage. 2. Prominent air adjacent to the left globe, appears to be preseptal. No intraconal hemorrhage or emphysema. Please note that all CT scans at this facility use dose modulation, iterative reconstruction, and/or weight-based dosing when appropriate to reduce radiation dose to as low as reasonably achievable. Dictated by Marimar Dial MD @ 05/11/2025 4:35:04 PM (Electronic Signature) Discharge Plan Discharge Clinical Impression: Fall Patient Disposition: Home, Self-Care Condition: Stable Instructions: Fall Prevention for Older Adults (ED) Additional Instructions: It is unclear what was happening with you last night that caused her fall. At this point, close observation and return with any hint of recurrent symptoms; call 911 if needed. You need to follow-up with your neurologist next week. It is possible that this could have been something like a TIA, arrhythmia. Your back to baseline at this point which is reassuring. With a TIA we would likely recommend an 81 mg aspirin daily but you are on a medicine where there is an increased risk of brain bleeds. I do understand your hesitancy to take aspirin. Thus, it is imperative that you follow-up or return here to the ER with any recurrent symptoms. Activity Level: Activity as Tolerated Prescriptions: No Action cholecalciferol (vitamin D3) 50 mcg (2,000 unit) capsule 5,000 unit PO DAILY pramipexole 0.5 mg tablet 0.5 mg PO QHS Qty: 90 3RF pravastatin 40 mg tablet 40 mg PO QPM Qty: 90 3RF Kisunla 17.5 mg/mL solution 700 mg IV Q4W Rx Instructions: for 3 doses acetaminophen [Tylenol] 325 mg tablet 325 mg PO ONCE PRN memantine 10 mg tablet 10 mg PO BID mupirocin 2 % ointment 1 applic topical BID Qty: 22 0RF Rx Instructions: bid x 5 days. magnesium 250 mg tablet 250 mg PO QHS donepezil 10 mg tablet 10 mg PO QPM Qty: 90 3RF gabapentin 300 mg capsule 900 mg PO QDAY Qty: 270 3RF Rx Instructions: 300mg in afternoon and 600mg at bedtime mirtazapine 7.5 mg tablet 7.5 mg PO QHS Qty: 90 1RF Follow Up/Referrals: Javier Pacheco PA-C [Primary Care Provider, Family Practice] Stand Alone Forms: MyHealth Info Instructions
--- OUTSIDE RECORDS SUMMARY | 2025-05-11 16:59 | XMS_ITS | Clinical Summary ---
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, early 4012169 (SNOMED CT) 09/13 Active 09/13 Thad Betancourt MD Primary degenerative dementia of the Alzheimer type, presenile onset, uncomplicated Family Hx of Alzheimers [id number] (SNOMED CT) 10/16 Active 10/16 Ml Brush RN FH: Alzheimer's disease Mild cognitive impairment 078642673 (SNOMED CT) 08/31 Active 08/31 Dwight Dhillon MD Mild neurocognitive disorder Medications Medication Instructions Start Date Stop Date Generic Name [facility] Provider Vitamin B12 1000 mcg Vitamin B12 John Torrez MD alpha lipoid acid alpha lipoid acid John Torrez MD DONEPEZIL HCL 10 MG TABS 1 tablet by mouth at bedtime take 1 tab (10 mg) by mouth at bedtime. donepezil [id number] John Torrez MD GABAPENTIN 100 MG CAPS Take 1 capsule by mouth at bedtime May take extra 100 mg per night with 300 mg at night as needed for nocturnal pain. May increase by 100 mg per night up to total of 900 mg at night as needed. gabapentin [id number] John Torrez MD ATORVASTATIN CALCIUM 10 MG TABS 1 tab daily 03/13 atorvastatin [id number] [facility] Namenda 5 mg tablet 2 tablet by mouth twice a day week 1-2: take 1 tab q pm. week 3-4: take 1 tab twice a day. week 5-6: take 1 tab q am and 2 tab q pm. week 7 onward: take 2 tab twice a day 03/13 memantine [id number] [facility] PRAVASTATIN SODIUM 40 MG TABS 1 tab qhs pravastatin [id number] [facility] FISH OIL 1000 MG CAPS omega 2-tau-mcy-fish oil [id number] [facility] D-5000 125 MCG (5000 UT) TABS cholecalciferol (vitamin d3) 03359251819 [facility] MAGNESIUM OXIDE -MG SUPPLEMENT 250 MG TABS magnesium oxide [id number] [facility] MEMANTINE HCL 10 MG TABS Take 1 tablet by mouth twice a day memantine [id number] John Torrez MD Namenda 5 mg tablet week 1-2: take 1 tab q pm. week 3-4: take 1 tab twice a day. week 5-6: take 1 tab q am and 2 tab q pm. week 7 onward: take 2 tab twice a day 09/13 memantine [id number] Thad Betancourt MD Namenda 5 mg tablet 2 tablet by mouth twice a day week 1-2: take 1 tab q pm. week 3-4: take 1 tab twice a day. week 5-6: take 1 tab q am and 2 tab q pm. week 7 onward: take 2 tab twice a day 03/13 memantine [id number] Thad Betancourt MD Namenda 5 mg tablet week 1-2: take 1 tab q pm. week 3-4: take 1 tab twice a day. week 5-6: take 1 tab q am and 2 tab q pm. week 7 onward: take 2 tab twice a day 09/13 memantine [id number] Thad Betancourt MD DONEPEZIL HCL 10 MG TABS take 1 tab (10 mg) by mouth at bedtime. 10/19 donepezil [id number] Thad Betancourt MD GABAPENTIN 100 MG CAPS take 2 pills 1 hour before bed 10/19 gabapentin [id number] Thad Betancourt MD DONEPEZIL HCL 10 MG TABS 1 tablet by mouth at bedtime take 1 tab (10 mg) by mouth at bedtime. 08/28 donepezil [id number] Thad Betancourt MD GABAPENTIN 300 MG CAPS 1 capsule by mouth at bedtime gabapentin [id number] Thad Betancourt MD DONEPEZIL HCL 10 MG TABS take 1 tab (10 mg) by mouth at bedtime. 10/19 donepezil [id number] Alaina Matias PA-C ASPIRIN EC 81 MG TBEC 1 tab daily aspirin [id number] Alaina Matias PA-C ATORVASTATIN CALCIUM 10 MG TABS 1 tab daily 03/13 atorvastatin 43002409912 Alaina Matias PA-C GABAPENTIN 100 MG CAPS take 1 - 2 pills 1 hour before bed 10/05 gabapentin [id number] Dwight Dhillon MD GABAPENTIN 100 MG CAPS take 2 pills 1 hour before bed 03/02 gabapentin [id number] Dwight Dhillon MD GABAPENTIN 100 MG CAPS take 1 - 2 pills 1 hour before bed 03/02 gabapentin [id number] Dwight Dhillon MD Medications Administered No information [...] performed and results reviewed. Total score [MMSE] [id number] Normal Total scor e [MoCA] MMSE SCORE [...] 14/11/06 ORDERS EMG bilateral low ext 08/28 [id number] MRI-Brain W/O CPT-01472 MRI Brain W/O [facility]-[id number] Documentation of current medicatio ns ORDERS Follow up LOINC 74104-8 MMSE ORDERS Patient Instructions ORDERS Follow up with Neurologist or RADHA LOINC 51197-6 MMSE ORDERS Follow up in clinic or telemedicine 09/13 ORDERS Other Order ORDERS Driving Evaluation 7 LOINC 00237-3 MMSE ORDERS Patient Instructions ORDERS Neuropsychology Evaluation 2 ORDERS Other Test ORDERS Other Order ORDERS Driving Evaluation 6 ORDERS Patient Instructions CPT-68168 Npsy Interview w/Provider - 1st hour 2021 CPT-63024 Npsy Interp/Rpt by Provider - 1st hour 13/08/27 CPT-37815 Npsy Interp/Rpt by Provider - 2 hours 10/04/26 CPT-07788 Npsy Test by Tech (2+ Tests) - 1st 30 min CPT-43954 Npsy Test by Tech (2+ Tests) - 2 hours 13/08/27 ORDERS Neuropsychology Evaluation 2 [id number] MRI-Brain W/O CPT-68333 MRI Brain W/O ORDERS Other Lab ORDERS Vitamin B1 (Thiamine) - fasting after mid night ORDERS Other Lab ORDERS TSH ORDERS Vitamin B12 ORDERS Lyme Total Ab w/Reflex (reflex to Western Blot) Vital Signs Date Name Value Unit Description Heart Rate 66 /min pulse rate Immunizations No information available. Advance Directives No information available.
== END 2025-05-11 17:05 | disposition home or self-care (01) ==
LOC: ED 16:57
PROVIDERS: Emergency Provider Family Medicine; PCP Physician Assistant Medical
DX: R47.81 Slurred speech (principal); S09.90XA Unspecified injury of head, initial encounter; W19.XXXA Unspecified fall, initial encounter
CPT/HCPCS: 70450; 99284

== ENCOUNTER 2025-06-25 09:56 | Outpatient (CLI) | payer MEDICARE, SELFPAY ==
--- NOTE | 2025-06-25 10:00 | CRLHL7_ITS ---
For Patients: As a result of the Cures Act, medical imaging exams and procedure reports are released immediately into your electronic medical record. You may view this report before your referring provider. If you have questions, please contact your health care provider. INDICATION: Lung cancer screening. History of smoking. High risk patient with greater than 50 pack-year smoking history. TECHNIQUE: Low-dose lung cancer screening non-contrast CT chest. Dose reduction techniques were used. COMPARISON: 06/15/2023 FINDINGS: NODULES: None. LUNGS AND PLEURA: Emphysema. Dependent scarring. MEDIASTINUM: Visualized thyroid is normal. No adenopathy. CORONARY ARTERY CALCIFICATION: Moderate. LIMITED UPPER ABDOMEN: Horseshoe kidney partially visualized. Atherosclerotic changes including dense calcification at the origin of the superior mesenteric artery and ectasia of the celiac artery. MUSCULOSKELETAL: Unremarkable. IMPRESSION: Negative for lung cancer screening purposes. LUNG-RADS CATEGORY: 1: Negative. RADIOLOGIST RECOMMENDATION: Continue annual screening, if eligible, with low-dose CT chest in 12 months. Please note that all CT scans at this facility use dose modulation, iterative reconstruction, and/or weight-based dosing when appropriate to reduce radiation dose to as low as reasonably achievable. Dictated by Jj Purcell MD @ 06/25/2025 11:39:07 AM (Electronically Signed)
== END 2025-06-25 09:57 | disposition home or self-care (01) ==
LOC: CT 09:57
PROVIDERS: PCP Physician Assistant Medical; Visit Provider Physician Assistant Medical
DX: Z12.2 Encounter for screening for malignant neoplasm of respiratory organs (principal); Z87.891 Personal history of nicotine dependence; J43.9 Emphysema, unspecified
CPT/HCPCS: 71271